=== PATIENT | female | born 1950 | race Caucasian/White ===

== ENCOUNTER 2016-08-20 03:17 | Inpatient (IN) | payer OTHER ==
[~2016-08-20] VITALS: Ht 154.9 cm; Wt 122.6 kg
[2016-08-20] VITALS (93 sets, daily range): BP systolic 62–142; BP diastolic 35–85; PULSE 77–103; TEMP 36.3–37.8; O2SAT 84–100; Ht 154.9 cm; Wt 122.6 kg
[~2016-08-20 03:17] MED LIST: ALBINS NEB; ALBU1AER9 INH; AMT25 PO; ATV/1 PO; B-CO-34 PO; CARV3.122 PO; CHOL1000 PO; DOXY-300 PO; FRRS300 PO; FURO40TA3 PO; HYDCR1CL TOP; INSU70IN2 SC; LCTL45 PO; LCTXP PO; LDDP5 EXT; METF1000 PO; NITR0.4S UT; OXGN; OXYC1TAB3 PO; OXYC20TA50 PO; PANT40TA PO; POLY335019 PO; POTA-74 PO; PSYL55.43 PO; SPR25 PO
[2016-08-20] MEDS ORDERED: SPIR50TA2 PO (03:59)
[2016-08-20] MEDS ORDERED: ALBU18002 INH (04:02)
[2016-08-20] MEDS ORDERED: OXYC20TA50 PO (04:04)
[2016-08-20] MEDS ORDERED: OXYC1TAB3 PO (04:05)
[2016-08-20 04:07] LABS: ALT/SGPT 18 U/L (12-78); AST/SGOT 32 U/L (15-37); BLOOD UREA NITROGEN 6 mg/dl (7-18); BUN/CREATININE RATIO 7.9 (10-20); CALCIUM 7.7 mg/dl (8.5-10.1); CARBON DIOXIDE 25 mmol/L (21-32); CHLORIDE 91 mmol/L (98-107); CREATININE 0.76 mg/dl (0.60-1.20); GLUCOSE 186 mg/dl (70-99); HEMATOCRIT 15.3 % (37-47); MEAN CELL VOLUME 71.2 fL (80-100); MEAN CORPUSCULAR HGB CONC 28.1 g/dl (32-36); PLATELET COUNT 272 K/uL (130-400); POTASSIUM 3.7 mmol/L (3.5-5.1); RED BLOOD COUNT 2.15 M/uL (4.2-5.4); SODIUM 126 mmol/L (136-145); WHITE BLOOD COUNT 7.28 K/uL (4.8-10.8)
[2016-08-20] MEDS ORDERED: PANT40TA PO (04:07)
[2016-08-20] MEDS ORDERED: LACT1GRA PO (04:09)
[2016-08-20] MEDS ORDERED: AMT50 PO (04:10)
[2016-08-20 04:12] LABS: ALB/GLOB RATIO 0.8 (0.9-2); ALKALINE PHOSPHATASE 96 U/L (45-117); C-REACTIVE PROTEIN 0.92 mg/dl (0-0.29)
[2016-08-20 04:13] LABS: BASO ABS # 0.07 K/uL (0-0.2); COMPLETE YES; EOS % 3.3 %; HYPOCHROMIA PRESENT; IG% 1.6 %; LYMPH ABS # 1.38 K/uL (1.2-3.4); MONO % 18.1 %; POLYCHROMASIA 1+
[2016-08-20] MEDS ORDERED: MULTTAB58 PO (04:17)
--- NOTE | 2016-08-20 04:28 | EMERGENCY ROOM VISIT NOTE ---
ED Visit Note First contact with patient: 03:27 I saw this patient in conjunction with Shailesh Ocampo PA-C. I agree with his decision making and treatment plan.
[2016-08-20] MEDS ORDERED: MoRPHine SULFATE 4 MG/ML 1 ML CARP\\VIAL IV ONE (04:30)
[2016-08-20] MEDS ORDERED: PANTOprazole INJ 80 MG in DEXTROSE 5% 100ML IV STA (04:30)
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
[2016-08-20] MEDS ORDERED: ALUMINUM/MAGNESIUM/SIMETH (MAALOX MAX) 30 ML UDC PO PRN (04:45)
[2016-08-20] MEDS ORDERED: ALBUTEROL HFA 8 GM INHALER INH PRN (04:45)
[2016-08-20] MEDS ORDERED: GLUCAGON FOR INJ 1 MG VIAL SQ PRN (04:45)
[2016-08-20] MEDS ORDERED: ACETAMINOPHEN 325 MG TAB PO PRN (04:45)
[2016-08-20] MEDS ORDERED: PANTOprazole INJ 40 MG in DEXTROSE 5% 100ML IV SCH (04:45)
[2016-08-20] MEDS ORDERED: DEXTROSE 50% 50 ML SYR IV PRN (04:45)
[2016-08-20] MEDS ORDERED: NITROGLYCERIN 0.4 MG SL PER TAB CHARGE UT PRN (04:45)
[2016-08-20] MEDS ORDERED: GLUCOSE 10 TABS/TUBE PO PRN (04:45)
[2016-08-20] MEDS ORDERED: MAGNESIUM HYDROXIDE SUSP 30 ML UDC PO PRN (04:45)
[2016-08-20] MEDS ORDERED: LORAZEPAM 1 MG TAB PO PRN (04:45)
[2016-08-20] MEDS ORDERED: GLUCOSE 40% GEL 15 GM TUBE PO PRN (04:45)
[2016-08-20 04:59] LABS: INR 1.2 (0.9-1.1); PROTHROMBIN TIME (PATIENT) 13.1 SECONDS (9.0-12.0)
--- NOTE | 2016-08-20 06:36 | DIAGNOSTIC IMAGING REPORT ---
CHEST ONE VIEW PORTABLE CLINICAL HISTORY: SOB dyspnea COMPARISON STUDY: 06/18/2016 FINDINGS: Components of congestive failure similar to perhaps minimally increased in prominence. Heart is moderately enlarged. IMPRESSION: Congestive heart failure stable to slightly increased in prominence radiographically Electronically signed by: Bj Marcial M.D. 08/20/2016 6:34 AM Dictated Date/Time: 08/20/2016 6:28 AM
[2016-08-20] MEDS: INSULIN HUMAN REGULAR SC SCH ×4 (06:45→20:57)
[2016-08-20] MEDS: CARVEDILOL 3.125 MG TAB PO SCH ×2 (07:15→18:44)
[2016-08-20] MEDS: LACTOBACILLUS ACIDOPHILUS 1 GM PACK PO SCH ×3 (07:55→16:30)
[2016-08-20] MEDS: MULTIVITAMIN TAB PO SCH (07:56)
[2016-08-20] MEDS: FERROUS SULFATE 325 MG TAB PO SCH (07:56)
--- NOTE | 2016-08-20 08:20 | Gastrointestinal Consultation ---
Gastrointestinal Consultation Date of Consultation: Aug 20, 2016 Attending Physician: Dr. Shaw Consulting Physician: Dr. Quinn Reason for Consultation: Anemia History of Present Illness Patient is a 66 year old female patient of Dr. Decker with a hx of COPD on home O2, SAUCEDO cirrhosis with hx of GAVE, GI bleeding requiring multiple transfusions. She presented to the ED yesterday for fatigue, SOB, weakness and melena though she is also on a po iron supplement. 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 She most recently underwent EGD with Dr. Luna in [place] in Mar 2016 with APC of GAVE. -She was scheduled to undergo EGD for BARX tx of the GAVE but was unable to go due to transportation issues. In the past few weeks, her stools which are typically black from iron are "darker" but remained formed, one/day. No bright red blood in stools and no nausea, vomiting or abdominal pain is present. On arrival, Hb was found to be 4.3, down from 8.3 on 06/22/16. INR is 1.2( effect of liver disease, not anticoagulated). After 2 units of blood, Hb 6.1, now receiving her 3rd unit. She is seen and examined while she is resting in bed in the ICU. She denies any abdominal pain and currently has a91 % O2 sat with 2 L O2. Past Medical/Surgical History Medical Problems: (1) Bilateral lower leg cellulitis Status: Acute (2) Bilateral lower leg cellulitis Status: Acute (3) Cellulitis Status: Acute (4) Cellulitis of lower leg Status: Acute (5) Cellulitis of right leg Status: Acute (6) Failure of outpatient treatment Status: Acute (7) Lower extremity edema Status: Acute (8) Shortness of breath Status: Acute (9) SOB (shortness of breath) Status: Acute (10) Swelling of left extremity Status: Acute (11) Swelling of right extremity Status: Acute (12) Symptomatic anemia Status: Acute (13) Weakness Status: Acute (14) Weakness generalized Status: Acute Past Medical History: 1. COPD 2. Obesity 3. SAUCEDO cirrhosis with GAVE 4. HTN 5. Portal HTN Past Surgical History: 1. Hysterectomy 2. Tonsillectomy Family History Cancer FATHER Diabetes mellitus FATHER Heart disease FATHER Pancreatic cancer GRANDMOTHER Social History Smoking Status: Former Smoker Alcohol Use: none Drug Use: none Marital Status: Housing Status: lives alone Occupation Status: retired Allergies Coded Allergies: Cephalexin (Verified Allergy, Intermediate, HIVES, 08/20/16) Iodinated Diagnostic Agents (Verified Allergy, Intermediate, RASH, 08/20/16 ) Penicillins (Verified Allergy, Intermediate, HIVES, 08/20/16) Sulfa Antibiotics (Verified Allergy, Unknown, UNKNOWN, 08/20/16) Current Medications Home Meds and Scripts Medications Dose Route/Sig Max Daily Dose Days Date Category Dose Instructions Multivitamin (Multiple Vitamin) 1 Tab Tab 1 Tab PO DAILY 08/20/16 Reported Elavil (Amitriptyline HCl) 50 Mg Tab 50 Mg PO HS 08/20/16 Reported Lactinex Granules (Lactobacillus Acidophilus) 1 Gm Pkt 1 Gm PO TIDM 08/20/16 Reported Protonix (Pantoprazole Sodium) 40 Mg Tab 40 Mg PO DAILY 08/20/16 Reported Roxicodone Ir (Oxycodone HCl) 5 Mg Tab 5 Mg PO Q6H PRN 08/20/16 Reported Oxycontin (Oxycodone Hcl) 20 Mg Tab 20 Mg PO Q12 PRN 08/20/16 Reported Proair Respiclick (Albuterol Sulfate) 108 Mcg/Act Aer 2 Puffs INH QID PRN 08/20/16 Reported Aldactone (Spironolactone) 50 Mg Tab 50 Mg PO DAILY 08/20/16 Reported Doxycycline (Doxycycline (Monohydrate)) 100 Mg Cap 100 Mg PO BID 5 06/22/16 Rx Oxygen Gas 2 Liters NA CONTINUOUS 06/18/16 Reported Ferrous Sulfate 325 Mg Tab 325 Mg PO DAILY 06/18/16 Reported Lasix (Furosemide) 40 Mg Tab 40 Mg PO DAILY 06/18/16 Reported Novolin 70/30 (Insulin Human Isoph/Insulin Regular) Susp 50 Units SC QAM 06/18/16 Reported Novolin 70/30 (Insulin Human Isoph/Insulin Regular) Susp 52 Units SC QPM 06/18/16 Reported Ativan (Lorazepam) 1 Mg Tab 1 Mg PO Q12 HOURS 06/18/16 Reported Lidocaine 1 Patch Tdsy 1 Patch EXT DAILY 06/18/16 Reported Hydrocortisone 1% (Hydrocortisone) 90 Appln/30 Gm Cr 1 Appln TOP BID PRN 12/31/15 Reported apply to bilateral legs Coreg (Carvedilol) 3.125 Mg Tab 3.125 Mg PO BIDM 10/16/15 Reported Glucophage (Metformin Hcl) 1,000 Mg Tab 1,000 Mg PO BIDM 09/08/15 Reported Vitamin D3 (Cholecalciferol) 1,000 Unit Tab 1,000 Units PO DAILY 08/12/15 Reported Nitrostat (Nitroglycerin) 0.4 Mg Sub 0.4 Mg UT UD PRN 10/29/[address] ONE TABLET UNDER THE TONGUE EVERY 5 MINUTES FOR UP TO 3 DOSES IF NEEDED FOR CHEST PAIN. Albuterol Sulfate (Albuterol Sulf) 2.5 Mg/3 Ml Nebu 1 Vial NEB QID PRN 10/29/14 Reported Potassium Chloride Er (Potassium Chloride) 10 Meq Tab 20 Meq PO TIDM 10/29/14 Reported Review of Systems Constitutional: No chills, No fever, No sweats, No weakness, No weight loss Eyes: No eye pain, No redness ENT: No pain on swallowing, No sore throat, No trouble swallowing Respiratory: No cough, No dyspnea on exertion, No shortness of breath, No wheezing Cardiac: No chest pain, No edema, No palpitations Abdomen: + GI bleeding, + see HPI, No constipation, No diarrhea, No nausea, No pain, No vomiting Neuro: No balance problems, No memory loss, No numbness/tingling, No vertigo, No weakness Psych: No anxiety, No depression symptoms, No insomnia Heme: No abnormal bleeding/bruising, No night sweats Endo: No excessive thirst, No excessive urination Skin: No itch, No jaundice, No new/changing skin lesions, No rash Physical Exam Date Time Temp Pulse Resp B/P Pulse Ox O2 Delivery O2 Flow Rate FiO2 08/20/16 06:30 84 16 107/49 100 2.0 08/20/16 06:15 36.5 86 22 101/47 98 Nasal Cannula 1.0 08/20/16 06:15 84 18 101/47 100 2.0 08/20/16 06:05 36.3 87 22 108/42 91 Nasal Cannula 2.0 08/20/16 06:00 86 20 108/42 100 Nasal Cannula 2.0 08/20/16 05:28 36.7 90 26 106/61 100 Nasal Cannula 2.0 08/20/16 04:35 93 20 120/61 100 Nasal Cannula 2.0 08/20/16 03:42 94 08/20/16 03:28 37.1 99 20 120/56 100 Nasal Cannula 2.0 08/20/16 03:28 100 Nasal Cannula 2.0 08/20/16 03:28 100 Nasal Cannula 2.0 General Appearance: no apparent distress, + obese Neck: no adenopathy, no JVD Respiratory/Chest: normal breath sounds, + decreased breath sounds (in the bases) Cardiovascular: regular rate, rhythm, no JVD, no murmur Abdomen: non tender, soft Extremities: + swelling (chronic thickened skin from chronic lower leg edema) Neurologic/Psych: alert, normal mood/affect, oriented x 3 Skin: normal color, no jaundice, no rash Laboratory Results Last 24 Hours Test 08/20/16 02:24 08/20/16 04:00 08/20/16 05:51 08/20/16 06:00 White Blood Count 7.28 K/uL Red Blood Count 2.15 M/uL Hemoglobin 4.3 g/dL Hematocrit 15.3 % Mean Corpuscular Volume 71.2 fL Mean Corpuscular Hemoglobin 20.0 pg Mean Corpuscular Hemoglobin Concent 28.1 g/dl Platelet Count 272 K/uL Neutrophils (%) (Auto) 57.0 % Lymphocytes (%) (Auto) 19.0 % Monocytes (%) (Auto) 18.1 % Eosinophils (%) (Auto) 3.3 % Basophils (%) (Auto) 1.0 % Neutrophils # (Auto) 4.15 K/uL Lymphocytes # (Auto) 1.38 K/uL Monocytes # (Auto) 1.32 K/uL Eosinophils # (Auto) 0.24 K/uL Basophils # (Auto) 0.07 K/uL Immature Granulocyte % (Auto) 1.6 % Immature Granulocyte # (Auto) 0.12 K/uL Polychromasia 1+ Hypochromasia PRESENT Erythrocyte Sedimentation Rate 11 mm/hr Sodium Level 126 mmol/L Potassium Level 3.7 mmol/L Chloride Level 91 mmol/L Carbon Dioxide Level 25 mmol/L Anion Gap 10.0 mmol/L Blood Urea Nitrogen 6 mg/dl Creatinine 0.76 mg/dl Est Creatinine Clear Calc Drug Dose 91.6 ml/min Estimated GFR () 94.1 Estimated GFR (Non- 81.2 BUN/Creatinine Ratio 7.9 Random Glucose 186 mg/dl Calcium Level 7.7 mg/dl Total Bilirubin 0.7 mg/dl Aspartate Amino Transf (AST/SGOT) 32 U/L Alanine Aminotransferase (ALT/SGPT) 18 U/L Alkaline Phosphatase 96 U/L Troponin I < 0.015 ng/ml C-Reactive Protein 0.92 mg/dl Pro-B-Type Natriuretic Peptide 552 pg/ml Total Protein 5.8 gm/dl Albumin 2.5 gm/dl Globulin 3.3 gm/dl Albumin/Globulin Ratio 0.8 Prothrombin Time 13.1 SECONDS Prothromb Time International Ratio 1.2 Bedside Glucose 122 mg/dl Test 08/20/16 08:00 Impression Patient is a 66 year old female with melena, anemia, likely 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 Plan Plan: 1. Agree with Protonix drip. 2. Timing of next EGD to be determined by dialogue between Dr. Quinn, Dr. Soriano and Dr. Eboni Cisse. There is some concern from anesthesia regarding hyponatremia and need to correct this and resuscitate with blood prior to sedation. ttg addendum: I interviewed and examined pt, reviewed chart and labs. Pt with cirrhosis, GAVE, recurrent GIB thought to be related to GAVE now admit with progressive MALDONADO< persistent passage of dark stool. On admission, she was normotensive, with hgb 4 (last 8 in June), normal BUN, Na 126. She has received 2 U PRBC with rise in Hgb from 4 to 6. A/P: GIB - I presume that she is bleeding again from GAVE. DDX includes LGIB - she has never had a cscopy with adequate prep. At present, she is still receiving blood, and she does not appear be acutely bleeding - would prefer to defer scope until pt has completed transfusion. Will plan EGD and cscopy next week; may be done as outpt. No need for PPI gtt - this is likely a chronic or subacute bleed; ok for BID PPI. I don't think that she needs abx prophylaxis for this bleed, given its likely chronicity. Cirrhosis - o.w appears compensated, without evidence of vol overload or enceph. May resume out pt dose of diuretics.
[2016-08-20 08:52] LABS: URINE APPEARANCE CLEAR (CLEAR); URINE BILIRUBIN NEG (NEG); URINE COLOR YELLOW; URINE EPITHELIAL CELL AUTO >30 /lpf (0-5); URINE NITRITE NEG (NEG); URINE PH 5.5 (4.5-7.5); UROBILINOGEN NEG (NEG); ZZUR CULT IF INDIC CLEAN CATCH NO
[2016-08-20 08:54] LABS: MANUAL MICROSCOPIC REQUIRED? NO; REVIEW REQ? NO
[2016-08-20] MEDS: SPIRONOLACTONE 100 MG TAB PO SCH (09:00)
[2016-08-20 09:45] LABS: HEMATOCRIT 17.3 % (37-47)
[2016-08-20] MEDS: PANTOprazole INJ 40 MG in DEXTROSE 5% 100ML IV SCH ×3 (10:19→19:35)
[2016-08-20] MEDS: LIDODERM (LIDOCAINE) PATCH 5% TD SCH (10:21)
[2016-08-20] MEDS: OXYCODONE HCL 20 MG TABCR (OXYCONTIN) PO PRN ×2 (11:47→23:59)
--- NOTE | 2016-08-20 11:54 | Progress Note ---
Internal Med Progress Note Date of Service: Aug 20, 2016. Provider Documentation: SUBJECTIVE: Patient is seen & examined at bedside. She is awake but feels very weak and tired. Mild intermittent SOB at rest. Not a great historian. PRBC # 2 is being transfused now. OBJECTIVE: Vital Signs-as noted below Examination: General Appearance: Awake, In no apparent distress, Feels very tired and weak ) Eyes: sclerae normal ENT: Eras, Nose & Throat are normal looking. Neck: thyroid normal, no carotid bruits, trachea midline Respiratory/Chest: B/L Clear to auscultation Cardiovascular: regular rate, rhythm, Normal S1,S2. Abdomen/GI: normal bowel sounds, non tender, soft Extremities/Musculoskeletal: normal inspection, no pedal edema Neurologic/Psych: no motor/sensory deficits,very tired , lethargic Lab data as noted below. ASSESSMENT & PLAN: Severe Symptomatic Anemia due to GI Bleeding: Patient presents with melena assoc with generalized weakness, SOB and lightheadedness; Has known h/o chronic anemia /GI bleed due to GAVE -Not on Aspirin or NSAID's -Hgb~4 on presentation (baseline 8.5-9.0); Hb has gone up from 4.3 --> 4.9 after 2 units of PRBC. -Monitor H&H q 4 h closely -Continue Protonix drip -Discussed with GI DUNG Rosas and raised concern regarding acute intervention as she was suggesting doing EGD on Tuesday. Raised my concern with her regarding critical illness of this patient. 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 She missed the appointment -car was not working ,could not get a ride Recent UTI: urine culture on 08/12/16 grew Proteus Mirabilis which is resistant to Cipro /Levaquin -Continue Rocephin (Day # 1).ordered for Rocephin -UA and urine culture ordered Diabetes Type II: Holding Novolin and metformin -Monitor BS closely and cover as per sliding scale. Chronic Systolic CHF: Seems clinically stable and euvolemic. Last echo from 01/29/15-LVEF 60-65% with grade 1 diastolic dysfunction and moderate septal L ventricular hypertrophy -Continue Carvedilol -Will give Lasix in between PRBC transfusions to avoid any fluid overload -Monitoring volume status Chronic Respiratory Failure: Due to COPD and is on chronic oxygen 2.5 L O2 at night and PRN during the day -No evidence of acute exacerbation -Continue home inhalers/ nebs Hypotension: Episodes of hypotension -possible due to severe anemia -Continue Carvedilol with holding parameters -Holding Lasix /Aldactone for now and will use as needed -Monitor BP closely History SAUCEDO/Portal Hypertension/Hepatic Lesions: EGD 03/29/16 did not show varices -Chronic Hyponatremia due to above -GI following her as outpatient History GERD: Continue Protonix drip DVT Prophylaxis: SCDs only in setting of GI bleed Code Status: FULL CODE Disposition: Pending. Vital Signs: Date Time Temp Pulse Resp B/P Pulse Ox O2 Delivery O2 Flow Rate FiO2 08/20/16 10:53 36.6 90 28 121/58 92 08/20/16 10:30 92 23 123/69 08/20/16 09:36 87 23 96/59 91 2.0 08/20/16 08:35 81 19 103/61 92 2.0 08/20/16 07:45 Nasal Cannula 08/20/16 06:30 84 16 107/49 100 2.0 08/20/16 06:15 36.5 86 22 101/47 98 Nasal Cannula 1.0 08/20/16 06:15 84 18 101/47 100 2.0 08/20/16 06:05 36.3 87 22 108/42 91 Nasal Cannula 2.0 08/20/16 06:00 86 20 108/42 100 Nasal Cannula 2.0 08/20/16 05:28 36.7 90 26 106/61 100 Nasal Cannula 2.0 08/20/16 04:35 93 20 120/61 100 Nasal Cannula 2.0 08/20/16 03:42 94 08/20/16 03:28 37.1 99 20 120/56 100 Nasal Cannula 2.0 08/20/16 03:28 100 Nasal Cannula 2.0 08/20/16 03:28 100 Nasal Cannula 2.0 Lab Results: Results Past 24 Hours Test 08/20/16 02:24 08/20/16 04:00 08/20/16 05:30 08/20/16 05:51 Range/Units White Blood Count 7.28 4.8-10.8 K/uL Red Blood Count 2.15 4.2-5.4 M/uL Hemoglobin 4.3 12.0-16.0 g/dL Hematocrit 15.3 37-47 % Mean Corpuscular Volume 71.2 80-100 fL Mean Corpuscular Hemoglobin 20.0 25-34 pg Mean Corpuscular Hemoglobin Concent 28.1 32-36 g/dl Platelet Count 272 130-400 K/uL Neutrophils (%) (Auto) 57.0 % Lymphocytes (%) (Auto) 19.0 % Monocytes (%) (Auto) 18.1 % Eosinophils (%) (Auto) 3.3 % Basophils (%) (Auto) 1.0 % Neutrophils # (Auto) 4.15 1.4-6.5 K/uL Lymphocytes # (Auto) 1.38 1.2-3.4 K/uL Monocytes # (Auto) 1.32 0.11-0.59 K/uL Eosinophils # (Auto) 0.24 0-0.5 K/uL Basophils # (Auto) 0.07 0-0.2 K/uL Immature Granulocyte % (Auto) 1.6 % Immature Granulocyte # (Auto) 0.12 0.00-0.02 K/uL Polychromasia 1+ Hypochromasia PRESENT Erythrocyte Sedimentation Rate 11 0-21 mm/hr Sodium Level 126 136-145 mmol/L Potassium Level 3.7 3.5-5.1 mmol/L Chloride Level 91 98-107 mmol/L Carbon Dioxide Level 25 21-32 mmol/L Anion Gap 10.0 3-11 mmol/L Blood Urea Nitrogen 6 7-18 mg/dl Creatinine 0.76 0.60-1.20 mg/dl Est Creatinine Clear Calc Drug Dose 91.6 ml/min Estimated GFR () 94.1 Estimated GFR (Non- 81.2 BUN/Creatinine Ratio 7.9 10-20 Random Glucose 186 70-99 mg/dl Calcium Level 7.7 8.5-10.1 mg/dl Total Bilirubin 0.7 0.2-1 mg/dl Aspartate Amino Transf (AST/SGOT) 32 15-37 U/L Alanine Aminotransferase (ALT/SGPT) 18 12-78 U/L Alkaline Phosphatase 96 45-117 U/L Troponin I < 0.015 0-0.045 ng/ml C-Reactive Protein 0.92 0-0.29 mg/dl Pro-B-Type Natriuretic Peptide 552 0-900 pg/ml Total Protein 5.8 6.4-8.2 gm/dl Albumin 2.5 3.4-5.0 gm/dl Globulin 3.3 2.5-4.0 gm/dl Albumin/Globulin Ratio 0.8 0.9-2 Prothrombin Time 13.1 9.0-12.0 SECONDS Prothromb Time International Ratio 1.2 0.9-1.1 Urine Color YELLOW Urine Appearance CLEAR CLEAR Urine pH 5.5 4.5-7.5 Urine Specific Aspen 1.000 1.000-1.030 Urine Protein NEG NEG Urine Glucose (UA) NEG NEG Urine Ketones NEG NEG Urine Occult Blood 2+ NEG Urine Nitrite NEG NEG Urine Bilirubin NEG NEG Urine Urobilinogen NEG NEG Urine Leukocyte Esterase NEG NEG Urine WBC (Auto) 1-5 0-5 /hpf Urine RBC (Auto) 0-4 0-4 /hpf Urine Hyaline Casts (Auto) 0 0-5 /lpf Urine Epithelial Cells (Auto) >30 0-5 /lpf Urine Bacteria (Auto) NEG NEG Bedside Glucose 122 70-90 mg/dl Test 08/20/16 08:42 08/20/16 11:54 08/20/16 12:00 Range/Units Hemoglobin 4.9 12.0-16.0 g/dL Hematocrit 17.3 37-47 %
[2016-08-20 12:36] LABS: BUN/CREATININE RATIO 8.6 (10-20); CALCIUM 7.8 mg/dl (8.5-10.1); CREATININE 0.63 mg/dl (0.60-1.20); POTASSIUM 3.8 mmol/L (3.5-5.1)
[2016-08-20 12:46] LABS: HEMATOCRIT 20.5 % (37-47)
[2016-08-20] MEDS ORDERED: FUROSEMIDE INJ 10 MG in SYRINGE 0 ML IV ONE (14:00)
[2016-08-20] MEDS: CEFTRIAXONE SOD INJ 1 GM in DEXTROSE 5% ADD-VANTAGE 50ML 50 ML IV SCH (14:23)
[2016-08-20 18:30] LABS: HEMATOCRIT 26.2 % (37-47)
[2016-08-20] MEDS: OXYCODONE HCL IR 5 MG TAB (IMMEDIATE RELEASE) PO PRN ×2 (18:42→23:59)
[2016-08-20] MEDS: AMITRIPTYLINE HCL 50 MG TAB PO SCH (20:57)
[2016-08-20] MEDS: LORAZEPAM 0.5 MG TAB PO PRN (23:58)
[2016-08-21] VITALS (18 sets, daily range): BP systolic 72–115; BP diastolic 41–64; PULSE 74–88; TEMP 36.6–37.2; O2SAT 93–100
[2016-08-21] MEDS: PANTOprazole INJ 40 MG in DEXTROSE 5% 100ML IV SCH ×2 (00:28→10:15)
[2016-08-21 06:11] LABS: HEMATOCRIT 23.5 % (37-47); MEAN CELL VOLUME 76.8 fL (80-100); MEAN CORPUSCULAR HEMOGLOBIN 24.2 pg (25-34); MEAN CORPUSCULAR HGB CONC 31.5 g/dl (32-36); MEAN PLATELET VOLUME 8.8 fL (7.4-10.4); PLATELET COUNT 212 K/uL (130-400); RED BLOOD COUNT 3.06 M/uL (4.2-5.4); WHITE BLOOD COUNT 6.25 K/uL (4.8-10.8)
[2016-08-21 06:28] LABS: BUN/CREATININE RATIO 7.7 (10-20); CALCIUM 7.6 mg/dl (8.5-10.1); CREATININE 0.71 mg/dl (0.60-1.20); MAGNESIUM 1.8 mg/dl (1.8-2.4); POTASSIUM 4.2 mmol/L (3.5-5.1)
[2016-08-21 06:42] LABS: ESTIMATED AVERAGE GLUCOSE 114 mg/dl; HA1C FLAG Normal (Normal)
[2016-08-21] MEDS: INSULIN HUMAN REGULAR SC SCH ×4 (08:38→20:42)
[2016-08-21] MEDS: MULTIVITAMIN TAB PO SCH (08:39)
[2016-08-21] MEDS: LACTOBACILLUS ACIDOPHILUS 1 GM PACK PO SCH ×3 (08:40→16:51)
[2016-08-21] MEDS: FERROUS SULFATE 325 MG TAB PO SCH (08:40)
[2016-08-21] MEDS: CARVEDILOL 3.125 MG TAB PO SCH ×2 (08:41→16:52)
[2016-08-21] MEDS: SPIRONOLACTONE 100 MG TAB PO SCH (08:41)
[2016-08-21] MEDS: OXYCODONE HCL IR 5 MG TAB (IMMEDIATE RELEASE) PO PRN ×3 (08:48→20:53)
[2016-08-21] MEDS: LIDODERM (LIDOCAINE) PATCH 5% TD SCH (08:48)
[2016-08-21] MEDS: OXYCODONE HCL 20 MG TABCR (OXYCONTIN) PO PRN (12:20)
--- NOTE | 2016-08-21 12:28 | Progress Note ---
Internal Med Progress Note Date of Service: Aug 21, 2016. Provider Documentation: SUBJECTIVE: Patient is seen & examined at bedside. She is awake,sitting in chair but feels very weak and tired. Denies any nausea/vomiting or abdominal pain. OBJECTIVE: Vital Signs-as noted below Examination: General Appearance: Awake, In no apparent distress Eyes: sclerae normal ENT: Eras, Nose & Throat are normal looking. Neck: thyroid normal, no carotid bruits, trachea midline Respiratory/Chest: B/L Clear to auscultation Cardiovascular: regular rate, rhythm, Normal S1,S2. Abdomen/GI: normal bowel sounds, non tender, soft Extremities/Musculoskeletal: normal inspection, no pedal edema Neurologic/Psych: no motor/sensory deficits,very tired , lethargic Lab data as noted below. ASSESSMENT & PLAN: Severe Symptomatic Anemia due to GI Bleeding: Patient presents with melena assoc with generalized weakness, SOB and lightheadedness; Has known h/o chronic anemia /GI bleed due to GAVE -Not on Aspirin or NSAID's -Hgb~4 on presentation (baseline 8.5-9.0); Hb has gone up from 4.3 --> 4.9-- > 6.1 --> 8.0 --> 7.4 after 4 units of PRBC. -Monitor H&H closely -Continue I/V Protonix -Reviewed GI consult. No acute intervention planned so far. -Colonoscopy 12/2015 was normal -Advanced from Clear liquid to Full liquid diet. 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 She missed the appointment -car was not working ,could not get a ride Recent UTI: urine culture on 08/12/16 grew Proteus Mirabilis which is resistant to Cipro /Levaquin -Continue Rocephin (Day # 2).ordered for Rocephin -UA and urine culture ordered Diabetes Type II: Holding Novolin and metformin -Monitor BS closely and cover as per sliding scale. Chronic Systolic CHF: Seems clinically stable and euvolemic. Last echo from 01/29/15-LVEF 60-65% with grade 1 diastolic dysfunction and moderate septal L ventricular hypertrophy -Continue Carvedilol -Will give Lasix in between PRBC transfusions to avoid any fluid overload -Monitoring volume status Chronic Respiratory Failure: Due to COPD and is on chronic oxygen 2.5 L O2 at night and PRN during the day -No evidence of acute exacerbation -Continue home inhalers/ nebs Hypotension: Episodes of hypotension -possible due to severe anemia -Continue Carvedilol with holding parameters -Holding Lasix /Aldactone for now and will use as needed -Monitor BP closely History SAUCEDO/Portal Hypertension/Hepatic Lesions: EGD 03/29/16 did not show varices -Chronic Hyponatremia due to above -GI following her as outpatient History GERD: Continue Protonix drip DVT Prophylaxis: SCDs only in setting of GI bleed Code Status: FULL CODE Disposition: Pending. Vital Signs: Date Time Temp Pulse Resp B/P Pulse Ox O2 Delivery O2 Flow Rate FiO2 08/21/16 08:00 100 Nasal Cannula 2.0 08/21/16 05:59 85 18 99/42 100 08/21/16 04:06 Nasal Cannula 2.0 08/21/16 03:58 36.8 84 16 100/49 100 08/21/16 01:58 84 19 112/57 93 08/21/16 00:33 Nasal Cannula 2.0 08/21/16 00:28 84 21 101/55 95 08/21/16 00:13 85 22 115/45 99 08/21/16 00:06 36.8 88 28 98/57 100 08/20/16 23:29 86 22 /82 97 08/20/16 23:15 86 31 99/43 96 08/20/16 22:59 90 20 137/56 92 08/20/16 21:29 83 22 115/63 98 08/20/16 21:15 87 26 133/54 100 08/20/16 20:58 79 19 118/79 100 08/20/16 20:44 86 19 93/35 97 08/20/16 20:28 37.8 90 20 103/56 97 08/20/16 20:14 79 20 115/50 100 08/20/16 20:12 Nasal Cannula 2.0 08/20/16 19:59 79 27 101/45 92 08/20/16 19:57 81 18 101/47 100 08/20/16 19:44 85 19 62/47 93 08/20/16 19:28 79 18 109/62 95 08/20/16 19:14 82 19 106/74 95 08/20/16 19:00 86 19 98 08/20/16 17:30 87 25 100 08/20/16 17:28 36.5 86 22 84/68 100 Nasal Cannula 2.0 08/20/16 17:15 92 23 100 08/20/16 17:14 93 25 105/62 100 08/20/16 17:00 36.5 100 20 100 Nasal Cannula 2.0 08/20/16 16:59 100 25 89/70 100 08/20/16 16:45 92 22 100 08/20/16 16:43 92 23 130/72 100 08/20/16 16:30 36.6 93 20 100 Nasal Cannula 2.0 08/20/16 16:28 92 29 119/68 100 08/20/16 16:15 36.6 89 18 100 Nasal Cannula 2.0 08/20/16 15:58 89 20 126/77 100 08/20/16 15:56 Nasal Cannula 2.0 08/20/16 15:45 89 23 100 08/20/16 15:43 91 34 116/66 100 08/20/16 15:30 98 17 100 08/20/16 15:29 96 17 132/80 100 08/20/16 15:15 36.5 91 20 119/69 100 2.0 08/20/16 15:15 91 21 100 08/20/16 15:13 93 32 119/69 100 08/20/16 15:00 36.6 91 18 126/59 99 2.0 08/20/16 15:00 98 21 98 08/20/16 14:58 95 15 126/59 100 08/20/16 14:45 92 24 100 08/20/16 14:30 93 27 100 08/20/16 14:28 93 25 113/69 100 08/20/16 14:15 100 18 08/20/16 14:13 97 18 127/70 08/20/16 14:00 96 27 98 08/20/16 13:58 94 26 121/53 96 08/20/16 13:45 94 23 98 08/20/16 13:43 94 26 116/69 98 08/20/16 13:30 94 27 142/57 98 08/20/16 13:15 36.5 95 18 119/66 98 Nasal Cannula 2.0 08/20/16 12:45 36.6 94 17 99 08/20/16 12:30 91 26 98 08/20/16 12:29 36.5 91 20 93/67 100 2.0 08/20/16 12:28 36.5 92 25 / 100 Lab Results: Results Past 24 Hours Test 08/20/16 16:24 08/20/16 18:23 08/20/16 20:56 08/21/16 05:45 Range/Units Bedside Glucose 99 122 70-90 mg/dl Hemoglobin 8.0 7.4 12.0-16.0 g/dL Hematocrit 26.2 23.5 37-47 % White Blood Count 6.25 4.8-10.8 K/uL Red Blood Count 3.06 4.2-5.4 M/uL Mean Corpuscular Volume 76.8 80-100 fL Mean Corpuscular Hemoglobin 24.2 25-34 pg Mean Corpuscular Hemoglobin Concent 31.5 32-36 g/dl RDW Standard Deviation 50.9 36.4-46.3 fL RDW Coefficient of Variation 18.0 11.5-14.5 % Platelet Count 212 130-400 K/uL Mean Platelet Volume 8.8 7.4-10.4 fL Sodium Level 133 136-145 mmol/L Potassium Level 4.2 3.5-5.1 mmol/L Chloride Level 97 98-107 mmol/L Carbon Dioxide Level 27 21-32 mmol/L Anion Gap 9.0 3-11 mmol/L Blood Urea Nitrogen 6 7-18 mg/dl Creatinine 0.71 0.60-1.20 mg/dl Est Creatinine Clear Calc Drug Dose 95.6 ml/min Estimated GFR () 102.2 Estimated GFR (Non- 88.1 BUN/Creatinine Ratio 7.7 10-20 Random Glucose 138 70-99 mg/dl Estimated Average Glucose 114 mg/dl Hemoglobin A1c 5.6 4.5-5.6 % Osmolality 272 280-300 mOsm/kg Calcium Level 7.6 8.5-10.1 mg/dl Magnesium Level 1.8 1.8-2.4 mg/dl Test 08/21/16 11:13 Range/Units Bedside Glucose 159 70-90 mg/dl
[2016-08-21] MEDS ORDERED: IRON SUCROSE INJ 100 MG in SODIUM CHLORIDE 0.9% 100ML 100 ML IV SCH (13:00)
[2016-08-21] MEDS ORDERED: FUROSEMIDE INJ 10 MG in SYRINGE 0 ML IV ONE (13:00)
[2016-08-21] MEDS: CEFTRIAXONE SOD INJ 1 GM in DEXTROSE 5% ADD-VANTAGE 50ML 50 ML IV SCH (14:03)
[2016-08-21 16:57] LABS: HEMATOCRIT 25.4 % (37-47)
--- NOTE | 2016-08-21 18:06 | DIAGNOSTIC IMAGING REPORT ---
LEFT HIP 2 VIEWS CLINICAL HISTORY: Left hip pain. No history of trauma. FINDINGS: AP and frog-leg views of the left hip are obtained. No prior studies are available for comparison at the time of dictation. The skeletal structures are osteopenic. No fracture is identified in the left hip or the visualized left hemipelvis. Mild arthritic change and joint space narrowing is seen in the left hip. Mild bony overgrowth is noted along the acetabular roof. Pelvic phleboliths are identified. The overlying soft tissues are normal as visualized. IMPRESSION: Osteopenia and arthritic change as above. No acute bony abnormality is identified in the left hip. Electronically signed by: Victor M Jackson M.D. 08/21/2016 6:05 PM Dictated Date/Time: 08/21/2016 6:03 PM
[2016-08-21] MEDS: PANTOprazole INJ 40 MG in SYRINGE 0 ML IV SCH (20:40)
[2016-08-21] MEDS: AMITRIPTYLINE HCL 50 MG TAB PO SCH (20:42)
[2016-08-22] VITALS (7 sets, daily range): BP systolic 91–115; BP diastolic 57–69; PULSE 78–90; TEMP 36.8–37.1; O2SAT 91–99
[2016-08-22] MEDS ORDERED: NURSING DECISION MEDICATION ORDER SCH (00:30)
[2016-08-22] MEDS ORDERED: EUCERIN CR 120 GM JAR EXT PRN (00:45)
[2016-08-22 06:12] LABS: HEMATOCRIT 26.7 % (37-47); MEAN CORPUSCULAR HEMOGLOBIN 24.3 pg (25-34); MEAN CORPUSCULAR HGB CONC 30.7 g/dl (32-36); MEAN PLATELET VOLUME 9.1 fL (7.4-10.4); PLATELET COUNT 222 K/uL (130-400); RED BLOOD COUNT 3.38 M/uL (4.2-5.4); WHITE BLOOD COUNT 8.14 K/uL (4.8-10.8)
[2016-08-22] MEDS: OXYCODONE HCL IR 5 MG TAB (IMMEDIATE RELEASE) PO PRN ×2 (06:41→15:16)
[2016-08-22 06:51] LABS: BUN/CREATININE RATIO 7.3 (10-20); CALCIUM 8.2 mg/dl (8.5-10.1); CREATININE 0.74 mg/dl (0.60-1.20); MAGNESIUM 1.7 mg/dl (1.8-2.4); POTASSIUM 3.9 mmol/L (3.5-5.1)
[2016-08-22] MEDS: SPIRONOLACTONE 100 MG TAB PO SCH (07:23)
[2016-08-22] MEDS: CARVEDILOL 3.125 MG TAB PO SCH ×2 (07:46→17:09)
[2016-08-22] MEDS: LACTOBACILLUS ACIDOPHILUS 1 GM PACK PO SCH ×3 (07:46→17:09)
[2016-08-22] MEDS: PANTOprazole INJ 40 MG in SYRINGE 0 ML IV SCH (07:47)
[2016-08-22] MEDS: MULTIVITAMIN TAB PO SCH (07:48)
[2016-08-22] MEDS: LIDODERM (LIDOCAINE) PATCH 5% TD SCH (07:48)
[2016-08-22] MEDS: INSULIN HUMAN REGULAR SC SCH ×4 (07:53→20:58)
[2016-08-22] MEDS: OXYCODONE HCL 20 MG TABCR (OXYCONTIN) PO PRN ×2 (07:59→23:56)
[2016-08-22] MEDS ORDERED: MAGNESIUM SULFATE 1GM / D5W 1 GM in PREMIXED IN D5W 100 ML IV ONE (09:30)
[2016-08-22] MEDS: CEFTRIAXONE SOD INJ 1 GM in DEXTROSE 5% ADD-VANTAGE 50ML 50 ML IV SCH (13:18)
--- NOTE | 2016-08-22 16:21 | Progress Note ---
Internal Med Progress Note Date of Service: Aug 22, 2016. Provider Documentation: SUBJECTIVE: Patient is seen & examined at bedside. She is awake,sitting in chair but feels very weak and tired. Denies any nausea/vomiting or abdominal pain.Has been c/o pain in the Left hip and told me that she fell down a few days ago. OBJECTIVE: Vital Signs-as noted below Examination: General Appearance: Awake, In no apparent distress Eyes: sclerae normal ENT: Eras, Nose & Throat are normal looking. Neck: thyroid normal, no carotid bruits, trachea midline Respiratory/Chest: B/L Clear to auscultation Cardiovascular: regular rate, rhythm, Normal S1,S2. Abdomen/GI: normal bowel sounds, non tender, soft Extremities/Musculoskeletal: normal inspection, no pedal edema Neurologic/Psych: no motor/sensory deficits,very tired , lethargic Lab data as noted below. 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 -Monitor H&H closely -Continue Protonix -Reviewed GI consult. No acute intervention planned so far. -Colonoscopy 12/2015 was normal -Advanced from Clear liquid to Full liquid diet. 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 She missed the appointment -car was not working ,could not get a ride Recent UTI: urine culture on 08/12/16 grew Proteus Mirabilis which is resistant to Cipro /Levaquin -Continue Rocephin (Day # 3).ordered for Rocephin -UA and urine culture ordered Diabetes Type II: Holding Novolin and metformin -Monitor BS closely and cover as per sliding scale. Left Hip pain: X-Ray is negative for any acute finding. -Already on pain medications. Chronic Systolic CHF: Seems clinically stable and euvolemic. Last echo from 01/29/15-LVEF 60-65% with grade 1 diastolic dysfunction and moderate septal L ventricular hypertrophy -Continue Carvedilol -Will give Lasix in between PRBC transfusions to avoid any fluid overload -Monitoring volume status Chronic Respiratory Failure: Due to COPD and is on chronic oxygen 2.5 L O2 at night and PRN during the day -No evidence of acute exacerbation -Continue home inhalers/ nebs Hypotension: Episodes of hypotension -possible due to severe anemia -Continue Carvedilol with holding parameters -Holding Lasix /Aldactone for now and will use as needed -Monitor BP closely History SAUCEDO/Portal Hypertension/Hepatic Lesions: EGD 03/29/16 did not show varices -Chronic Hyponatremia due to above -GI following her as outpatient History GERD: Continue Protonix drip DVT Prophylaxis: SCDs only in setting of GI bleed Code Status: FULL CODE Disposition: Pending. Vital Signs: Date Time Temp Pulse Resp B/P Pulse Ox O2 Delivery O2 Flow Rate FiO2 08/22/16 15:16 37.0 82 19 101/57 99 Nasal Cannula 2.0 08/22/16 12:00 Nasal Cannula 2.0 08/22/16 10:39 37.1 78 20 91/60 91 Room Air 08/22/16 08:00 Nasal Cannula 2.0 08/22/16 07:08 37.0 90 20 100/60 99 Nasal Cannula 2.0 08/22/16 04:00 93 Room Air 08/22/16 04:00 36.8 85 115/64 93 Room Air 08/22/16 00:00 93 Room Air 08/21/16 22:26 82 20 88/55 94 08/21/16 21:46 37.2 80 20 90/59 99 08/21/16 20:46 37.2 79 85/49 99 2.0 08/21/16 20:00 99 Nasal Cannula 2.0 08/21/16 19:46 37.2 80 20 89/48 100 2.0 08/21/16 19:16 37.2 76 16 90/47 99 08/21/16 18:59 37.0 74 18 72/41 98 2.0 Lab Results: Results Past 24 Hours Test 08/21/16 16:24 08/21/16 16:46 08/21/16 20:06 08/22/16 05:25 Range/Units Bedside Glucose 123 131 70-90 mg/dl Hemoglobin 7.8 8.2 12.0-16.0 g/dL Hematocrit 25.4 26.7 37-47 % White Blood Count 8.14 4.8-10.8 K/uL Red Blood Count 3.38 4.2-5.4 M/uL Mean Corpuscular Volume 79.0 80-100 fL Mean Corpuscular Hemoglobin 24.3 25-34 pg Mean Corpuscular Hemoglobin Concent 30.7 32-36 g/dl RDW Standard Deviation 51.9 36.4-46.3 fL RDW Coefficient of Variation 18.1 11.5-14.5 % Platelet Count 222 130-400 K/uL Mean Platelet Volume 9.1 7.4-10.4 fL Sodium Level 133 136-145 mmol/L Potassium Level 3.9 3.5-5.1 mmol/L Chloride Level 96 98-107 mmol/L Carbon Dioxide Level 28 21-32 mmol/L Anion Gap 9.0 3-11 mmol/L Blood Urea Nitrogen 5 7-18 mg/dl Creatinine 0.74 0.60-1.20 mg/dl Est Creatinine Clear Calc Drug Dose 91.4 ml/min Estimated GFR () 97.2 Estimated GFR (Non- 83.8 BUN/Creatinine Ratio 7.3 10-20 Random Glucose 126 70-99 mg/dl Calcium Level 8.2 8.5-10.1 mg/dl Magnesium Level 1.7 1.8-2.4 mg/dl Test 08/22/16 06:46 08/22/16 10:44 08/22/16 16:01 Range/Units Bedside Glucose 145 200 123 70-90 mg/dl
[2016-08-22] MEDS: ALBUT/IPRATROP 3MG/0.5MG NEB 3 ML VIAL INH PRN (19:30)
[2016-08-22] MEDS: AMITRIPTYLINE HCL 50 MG TAB PO SCH (19:34)
[2016-08-22] MEDS: PANTOprazole SOD 40 MG TAB PO SCH (19:35)
[2016-08-22] MEDS: LORAZEPAM 0.5 MG TAB PO PRN (23:55)
[2016-08-23] VITALS (9 sets, daily range): BP systolic 100–112; BP diastolic 54–73; PULSE 52–87; TEMP 36.3–36.9; O2SAT 92–100
[2016-08-23] MEDS: OXYCODONE HCL IR 5 MG TAB (IMMEDIATE RELEASE) PO PRN ×2 (01:28→15:21)
[2016-08-23 05:39] LABS: HEMATOCRIT 26.7 % (37-47); MEAN CELL VOLUME 79.5 fL (80-100); MEAN CORPUSCULAR HEMOGLOBIN 24.7 pg (25-34); MEAN CORPUSCULAR HGB CONC 31.1 g/dl (32-36); MEAN PLATELET VOLUME 8.6 fL (7.4-10.4); PLATELET COUNT 215 K/uL (130-400); RED BLOOD COUNT 3.36 M/uL (4.2-5.4); WHITE BLOOD COUNT 9.03 K/uL (4.8-10.8)
[2016-08-23 06:11] LABS: CALCIUM 7.8 mg/dl (8.5-10.1); CREATININE 0.79 mg/dl (0.60-1.20); MAGNESIUM 1.9 mg/dl (1.8-2.4); POTASSIUM 4.3 mmol/L (3.5-5.1)
[2016-08-23] MEDS: PANTOprazole SOD 40 MG TAB PO SCH ×2 (08:00→21:02)
[2016-08-23] MEDS: SPIRONOLACTONE 100 MG TAB PO SCH (08:03)
[2016-08-23] MEDS: CARVEDILOL 3.125 MG TAB PO SCH ×2 (08:03→15:22)
[2016-08-23] MEDS: LACTOBACILLUS ACIDOPHILUS 1 GM PACK PO SCH ×3 (08:05→15:22)
[2016-08-23] MEDS: MULTIVITAMIN TAB PO SCH (08:06)
[2016-08-23] MEDS: LIDODERM (LIDOCAINE) PATCH 5% TD SCH (08:07)
[2016-08-23] MEDS: INSULIN HUMAN REGULAR SC SCH ×4 (08:09→21:01)
[2016-08-23] MEDS: OXYCODONE HCL 20 MG TABCR (OXYCONTIN) PO PRN ×2 (08:22→21:10)
[2016-08-23] MEDS: CEFTRIAXONE SOD INJ 1 GM in DEXTROSE 5% ADD-VANTAGE 50ML 50 ML IV SCH (11:48)
--- NOTE | 2016-08-23 16:00 | Progress Note ---
Internal Med Progress Note Date of Service: Aug 23, 2016. Provider Documentation: SUBJECTIVE: Patient is seen & examined at bedside. She is awake,sitting in chair but feels very weak and tired. Denies any nausea/vomiting or abdominal pain.Has been c/o pain in the Left hip and told me that she fell down a few days ago. Has been tolerating oral intake well. No other new change or complaint. OBJECTIVE: Vital Signs-as noted below Examination: General Appearance: Awake, In no apparent distress Eyes: sclerae normal ENT: Eras, Nose & Throat are normal looking. Neck: thyroid normal, no carotid bruits, trachea midline Respiratory/Chest: B/L Clear to auscultation Cardiovascular: regular rate, rhythm, Normal S1,S2. Abdomen/GI: normal bowel sounds, non tender, soft Extremities/Musculoskeletal: normal inspection, no pedal edema Neurologic/Psych: no motor/sensory deficits,very tired , lethargic Lab data as noted below. 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 -Monitor H&H closely -Continue Protonix -Reviewed GI consult. No acute intervention planned so far. -Colonoscopy 12/2015 was normal -Advanced from Clear liquid to Full liquid diet. 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 She missed the appointment -car was not working ,could not get a ride Recent UTI: urine culture on 08/12/16 grew Proteus Mirabilis which is resistant to Cipro /Levaquin -Continue Rocephin (Day # 4). Needs for total 7 days -UA and urine culture ordered Diabetes Type II: Holding Novolin and metformin -Monitor BS closely and cover as per sliding scale. Left Hip pain: X-Ray is negative for any acute finding. -Already on pain medications. Chronic Systolic CHF: Seems clinically stable and euvolemic. Last echo from 01/29/15-LVEF 60-65% with grade 1 diastolic dysfunction and moderate septal L ventricular hypertrophy -Continue Carvedilol -Will give Lasix in between PRBC transfusions to avoid any fluid overload -Monitoring volume status Chronic Respiratory Failure: Due to COPD and is on chronic oxygen 2.5 L O2 at night and PRN during the day -No evidence of acute exacerbation -Continue home inhalers/ nebs Hypotension: Episodes of hypotension -possible due to severe anemia -Continue Carvedilol with holding parameters -Holding Lasix /Aldactone for now and will use as needed -Monitor BP closely History SAUCEDO/Portal Hypertension/Hepatic Lesions: EGD 03/29/16 did not show varices -Chronic Hyponatremia due to above -GI following her as outpatient History GERD: Continue Protonix drip DVT Prophylaxis: SCDs only in setting of GI bleed Code Status: FULL CODE Disposition: Pending. Vital Signs: Date Time Temp Pulse Resp B/P Pulse Ox O2 Delivery O2 Flow Rate FiO2 08/23/16 15:40 36.8 77 18 111/73 100 Nasal Cannula 3.0 08/23/16 12:00 Nasal Cannula 2.5 08/23/16 11:38 36.6 52 18 103/63 93 Nasal Cannula 3.0 08/23/16 08:00 Nasal Cannula 2.5 08/23/16 07:53 36.6 79 19 112/73 99 Nasal Cannula 3.0 08/23/16 04:00 Nasal Cannula 2.5 08/23/16 03:48 36.7 87 20 100/60 99 Nasal Cannula 2.5 08/23/16 00:06 36.3 84 20 104/54 98 Nasal Cannula 2.5 08/22/16 23:59 Nasal Cannula 2.5 08/22/16 20:00 Nasal Cannula 2.0 08/22/16 19:48 36.9 78 18 111/69 92 Room Air 08/22/16 19:30 85 20 97 Nasal Cannula 2.0 Lab Results: Results Past 24 Hours Test 08/22/16 20:28 08/23/16 01:29 08/23/16 05:20 08/23/16 06:29 Range/Units Bedside Glucose 185 151 149 70-90 mg/dl White Blood Count 9.03 4.8-10.8 K/uL Red Blood Count 3.36 4.2-5.4 M/uL Hemoglobin 8.3 12.0-16.0 g/dL Hematocrit 26.7 37-47 % Mean Corpuscular Volume 79.5 80-100 fL Mean Corpuscular Hemoglobin 24.7 25-34 pg Mean Corpuscular Hemoglobin Concent 31.1 32-36 g/dl RDW Standard Deviation 53.6 36.4-46.3 fL RDW Coefficient of Variation 19.0 11.5-14.5 % Platelet Count 215 130-400 K/uL Mean Platelet Volume 8.6 7.4-10.4 fL Sodium Level 133 136-145 mmol/L Potassium Level 4.3 3.5-5.1 mmol/L Chloride Level 96 98-107 mmol/L Carbon Dioxide Level 29 21-32 mmol/L Anion Gap 8.0 3-11 mmol/L Blood Urea Nitrogen 7 7-18 mg/dl Creatinine 0.79 0.60-1.20 mg/dl Est Creatinine Clear Calc Drug Dose 84.8 ml/min Estimated GFR () 89.8 Estimated GFR (Non- 77.5 BUN/Creatinine Ratio 9.0 10-20 Random Glucose 151 70-99 mg/dl Calcium Level 7.8 8.5-10.1 mg/dl Magnesium Level 1.9 1.8-2.4 mg/dl Test 08/23/16 11:14 Range/Units Bedside Glucose 163 70-90 mg/dl
[2016-08-23] MEDS: ALBUT/IPRATROP 3MG/0.5MG NEB 3 ML VIAL INH PRN (16:27)
--- NOTE | 2016-08-23 16:34 | Gastroenterology Progress Note ---
Progress Note Date of Service: Aug 23, 2016 Subjective Pt evaluation today including: conversation w/ patient, physical exam, chart review Patient was seen and examined today. she was resting comfortably in bed and was not wearing her O2. She reports that she is feeling much better and that this is the best she has felt in a while. HGB on admission was 4.3, received 5 units of blood and HGB today was 8. She reports having intermittent black stools. She reports they typically occur every other day. When they occur, it is only one BM daily. She denies any abd pain, nausea, vomiting BRBPR Review of Systems Constitutional: No chills, No fever Respiratory: No cough, No shortness of breath Cardiac: No chest pain, No edema Abdomen: + GI bleeding, No constipation, No diarrhea, No nausea, No pain, No vomiting Skin: No color change, No itch, No rash Medications Current Inpatient Medications Medications (Trade) Dose Ordered Sig/Sena Route Start Time Stop Time Status Last Admin Dose Admin Acetaminophen (Tylenol Tab) 650 mg Q4H PRN PO 08/20/16 04:45 09/19/16 04:44 Al Hydrox/Mg Hydrox/Simethicone (Maalox Max Susp) 15 ml Q4H PRN PO 08/20/16 04:45 09/19/16 04:44 Magnesium Hydroxide (Milk Of Magnesia Susp) 30 ml Q12H PRN PO 08/20/16 04:45 09/19/16 04:44 Ondansetron HCl (Zofran Inj) 4 mg Q6H PRN IV 08/20/16 04:45 09/19/16 04:44 Insulin Human Regular (novoLIN-R) SLIDING SCALE IF C... ACHS SC 08/20/16 06:45 09/19/16 06:59 08/23/16 11:56 3 UNITS Glucose (Glucose 40% Gel) 15-30 GRAMS 15 GRAMS... UD PRN PO 08/20/16 04:45 09/19/16 04:44 Glucose (Glucose Chew Tab) 4-8 Tablets 4 Tabl... UD PRN PO 08/20/16 04:45 09/19/16 04:44 Dextrose (Dextrose 50% 50ML Syringe) 25-50ML OF 50% DW IV FOR... UD PRN IV 08/20/16 04:45 09/19/16 04:44 Glucagon (Glucagon Inj) 1 mg UD PRN SQ 08/20/16 04:45 09/19/16 04:44 Amitriptyline HCl (Elavil Tab) 50 mg HS PO 08/20/16 21:00 09/19/16 20:59 08/22/16 19:34 50 MG Carvedilol (Coreg Tab) 3.125 mg BIDM PO 08/20/16 07:15 09/19/16 07:59 08/23/16 15:22 3.125 MG Lactobacillus Acidophilus (Lactinex Granules Pack) 1 gm TIDM PO 08/20/16 07:15 09/19/16 07:59 08/23/16 11:47 1 GM Lidocaine (Lidoderm Patch 5%) 1 patch DAILY TD 08/20/16 09:00 09/19/16 08:59 08/23/16 08:07 1 PATCH Multivitamins (Multivitamin Tab) 1 tab DAILY PO 08/20/16 09:00 09/19/16 08:59 08/23/16 08:06 1 TAB Nitroglycerin (Nitrostat Tab) 0.4 mg UD PRN UT 08/20/16 04:45 09/19/16 04:44 Oxycodone HCl (Oxycontin Tab) 20 mg Q12 PRN PO 08/20/16 04:45 09/03/16 04:44 08/23/16 08:22 20 MG Oxycodone HCl (Roxicodone Immediate Rel Tab) 5 mg Q6H PRN PO 08/20/16 04:45 09/03/16 04:44 08/23/16 15:21 5 MG Spironolactone (Aldactone Tab) 50 mg DAILY PO 08/20/16 09:00 09/19/16 08:59 08/23/16 08:03 50 MG Albuterol (Ventolin Hfa Inhaler) 2 puffs QID PRN INH 08/20/16 04:45 09/19/16 04:44 Miscellaneous (Remove Lidoderm Patch) 1 ea DAILY@21 N/A 08/20/16 21:00 09/19/16 20:59 08/22/16 19:34 1 EA Albuterol/ Ipratropium 3 ml 3 ml Q4R PRN INH 08/20/16 04:45 09/19/16 04:44 08/23/16 16:27 3 ML Ceftriaxone Sodium/Dextrose (Rocephin Inj/ Dextrose Add-Lawler 50ML) 50 ml @ 100 mls/hr DAILY@1400 IV 08/20/16 14:00 08/25/16 13:59 08/23/16 11:48 100 MLS/HR Lorazepam (Ativan Tab) 0.5 mg Q8 PRN PO 08/20/16 14:00 09/19/16 13:59 08/22/16 23:55 0.5 MG Multi-Ingredient Ointment (Eucerin Unscented Cr) 1 appln PRN PRN EXT 08/22/16 00:45 09/21/16 00:44 08/22/16 05:03 1 APPLN Pantoprazole Sodium 40 mg 40 mg BID PO 08/22/16 21:00 09/21/16 20:59 08/23/16 08:00 40 MG Ferric Sodium Gluconate/Sodium Chloride (Ferrlecit IV/ Nss 100ml) 108 ml @ 108 mls/hr TODAY@1700 ONCE IV 08/23/16 17:00 08/23/16 17:59 Polyethylene (Miralax Powder Packet) 17 gm DAILY PO 08/24/16 09:00 09/23/16 08:59 Polyethylene (Miralax Powder Packet) 17 gm TODAY@1700 ONCE PO 08/23/16 17:00 08/23/16 17:01 Objective Vital Signs Date Time Temp Pulse Resp B/P Pulse Ox O2 Delivery O2 Flow Rate FiO2 08/23/16 16:27 83 20 92 Nasal Cannula 2.0 08/23/16 15:40 36.8 77 18 111/73 100 Nasal Cannula 3.0 08/23/16 12:00 Nasal Cannula 2.5 08/23/16 11:38 36.6 52 18 103/63 93 Nasal Cannula 3.0 08/23/16 08:00 Nasal Cannula 2.5 08/23/16 07:53 36.6 79 19 112/73 99 Nasal Cannula 3.0 08/23/16 04:00 Nasal Cannula 2.5 08/23/16 03:48 36.7 87 20 100/60 99 Nasal Cannula 2.5 08/23/16 00:06 36.3 84 20 104/54 98 Nasal Cannula 2.5 08/22/16 23:59 Nasal Cannula 2.5 08/22/16 20:00 Nasal Cannula 2.0 08/22/16 19:48 36.9 78 18 111/69 92 Room Air 08/22/16 19:30 85 20 97 Nasal Cannula 2.0 Physical Exam General Appearance: + mild distress Eyes: PERRL ENT: hearing grossly normal Neck: supple, + adenopathy present Respiratory/Chest: lungs clear, normal breath sounds, no respiratory distress, no accessory muscle use Cardiovascular: regular rate, rhythm, no gallop, no JVD, no murmur Abdomen: normal bowel sounds, non tender, soft, no organomegaly, no pulsatile mass Neurologic/Psych: alert, normal mood/affect, oriented x 3 Skin: normal color, no jaundice, warm/dry Laboratory Results Last 24 Hours Test 08/22/16 20:28 08/23/16 01:29 08/23/16 05:20 08/23/16 06:29 Bedside Glucose 185 mg/dl 151 mg/dl 149 mg/dl White Blood Count 9.03 K/uL Red Blood Count 3.36 M/uL Hemoglobin 8.3 g/dL Hematocrit 26.7 % Mean Corpuscular Volume 79.5 fL Mean Corpuscular Hemoglobin 24.7 pg Mean Corpuscular Hemoglobin Concent 31.1 g/dl RDW Standard Deviation 53.6 fL RDW Coefficient of Variation 19.0 % Platelet Count 215 K/uL Mean Platelet Volume 8.6 fL Sodium Level 133 mmol/L Potassium Level 4.3 mmol/L Chloride Level 96 mmol/L Carbon Dioxide Level 29 mmol/L Anion Gap 8.0 mmol/L Blood Urea Nitrogen 7 mg/dl Creatinine 0.79 mg/dl Est Creatinine Clear Calc Drug Dose 84.8 ml/min Estimated GFR () 89.8 Estimated GFR (Non- 77.5 BUN/Creatinine Ratio 9.0 Random Glucose 151 mg/dl Calcium Level 7.8 mg/dl Magnesium Level 1.9 mg/dl Test 08/23/16 11:14 08/23/16 15:52 Bedside Glucose 163 mg/dl 148 mg/dl Assessment and Plan PPI BID NPO after midnight EGD on 08/24/16 monitor stools, watch H&H, transfuse if needed ATTESTATION: I have performed a history and physical examination of this patient and reviewed the electronic record. Specifically, on physical examination there is no abdominal tenderness. I have discussed the case with GLORIA Perry. The above note reflects my findings, conclusions, and recommendations. Grover Armas MD
[2016-08-23] MEDS ORDERED: POLYETHYLENE (MIRALAX) 17 GM PACK PO ONE (17:00)
[2016-08-23] MEDS ORDERED: SODIUM CHLORIDE 0.9% IV ONE (17:00)
[2016-08-23] MEDS ORDERED: SODIUM FERRIC GLUCONATE IV ONE (17:00)
--- NOTE | 2016-08-23 20:05 | DIAGNOSTIC IMAGING REPORT ---
LEFT FIRST TOE 5 VIEWS CLINICAL HISTORY: First toe infection. FINDINGS: 5 views of the left first toe are obtained. No prior studies are for comparison at the time of dictation. The skeletal structures are osteopenic. No fracture is seen. No acute bony abnormality is identified. No bony erosion or periostitis is seen. There is significant soft tissue edema present in the first toe and the visualized forefoot. There is a small focus of gas along the plantar aspect at the first level of the interphalangeal joint which likely represents a cutaneous ulceration. No radiodense foreign body is seen. IMPRESSION: 1. No acute bony abnormality is seen in the left first toe. 2. Findings suggest cellulitis and soft tissue ulceration. Clinical correlation will be required. Electronically signed by: Victor M Jackson M.D. 08/23/2016 8:04 PM Dictated Date/Time: 08/23/2016 8:02 PM
[2016-08-23] MEDS: AMITRIPTYLINE HCL 50 MG TAB PO SCH (21:02)
[2016-08-23] MEDS: LORAZEPAM 0.5 MG TAB PO PRN (21:10)
[2016-08-24 06:17] LABS: HEMATOCRIT 27.8 % (37-47); MEAN CELL VOLUME 79.2 fL (80-100); MEAN CORPUSCULAR HEMOGLOBIN 24.5 pg (25-34); MEAN CORPUSCULAR HGB CONC 30.9 g/dl (32-36); MEAN PLATELET VOLUME 8.6 fL (7.4-10.4); PLATELET COUNT 192 K/uL (130-400); RED BLOOD COUNT 3.51 M/uL (4.2-5.4); WHITE BLOOD COUNT 7.14 K/uL (4.8-10.8)
[2016-08-24 06:42] LABS: CALCIUM 8.1 mg/dl (8.5-10.1); CREATININE 0.73 mg/dl (0.60-1.20); MAGNESIUM 1.8 mg/dl (1.8-2.4); POTASSIUM 4.2 mmol/L (3.5-5.1)
[2016-08-24 06:53] VITALS: BP 109/61; PULSE 84; TEMP 36.7; O2SAT 92
[2016-08-24] MEDS: SPIRONOLACTONE 100 MG TAB PO SCH (07:25)
[2016-08-24] MEDS: LACTOBACILLUS ACIDOPHILUS 1 GM PACK PO SCH ×3 (07:26→17:00)
[2016-08-24] MEDS: INSULIN HUMAN REGULAR SC SCH ×4 (08:16→20:59)
[2016-08-24] MEDS: LIDODERM (LIDOCAINE) PATCH 5% TD SCH (08:18)
[2016-08-24] MEDS ORDERED: PROPOFOL IV EMULSION 10 MG/ML 20 ML VIAL IV ONE (10:55)
[2016-08-24] MEDS ORDERED: LIDOCAINE HCL 2% 2 ML VIAL (20MG/ML) ONE (10:55)
--- NOTE | 2016-08-24 11:39 | GI REPORT ---
Procedure Date: 08/24/2016 11:15 AM Procedure: Upper GI endoscopy Indications: Acute post hemorrhagic anemia, Watermelon stomach (GAVE syndrome) Medicines: Monitored Anesthesia Care Complications: No immediate complications. Estimated blood loss: None. Estimated Blood Loss: Estimated blood loss: none. Procedure: Pre-Anesthesia Assessment: - Prior to the procedure, a History and Physical was performed, and patient medications, allergies and sensitivities were reviewed. The patient's tolerance of previous anesthesia was reviewed. - ASA Grade Assessment: III - A patient with severe systemic disease. After obtaining informed consent, the endoscope was passed under direct vision. Throughout the procedure, the patient's blood pressure, pulse, and oxygen saturations were monitored continuously. The scope was introduced through the mouth, and advanced to the third part of duodenum. The upper GI endoscopy was accomplished with ease. The patient tolerated the procedure well. Findings: The examined esophagus was normal. The Z-line was regular and was found 40 cm from the incisors. Moderate gastric antral vascular ectasia was present in the gastric antrum. Coagulation for tissue destruction using argon plasma at 1.4 liters/minute and 35 núñez was successful. The examined duodenum was normal. Impression: - Normal esophagus. - Z-line regular, 40 cm from the incisors. - Gastric antral vascular ectasia. Treated with argon plasma coagulation (APC). - Normal examined duodenum. - No specimens collected. Recommendation: - Return patient to [facility] for ongoing care. Grover Armas M.D. Grover Armas MD 08/24/2016 11:39:06 AM This report has been signed electronically. Note Initiated On: 08/24/2016 11:15 AM I attest to the content of the Intraoperative Record and orders documented therein, exceptions below
[2016-08-24] MEDS ORDERED: ONDANSETRON INJ 2 MG/ML 2 ML VIAL ONE (11:59)
--- NOTE | 2016-08-24 12:17 | Anesthesiology Progress Note ---
Anesthesia Post Op Note Date & Time Aug 24, 2016 at 12:18 Vital Signs Pain Intensity: 0 Vital Signs Past 12 Hours Date Time Temp Pulse Resp B/P Pulse Ox O2 Delivery O2 Flow Rate FiO2 08/24/16 12:02 88 20 118/67 94 Nasal Cannula 2 08/24/16 11:38 84 20 107/54 99 Diffusion Mask 6 08/24/16 10:37 37.3 92 22 149/72 98 Nasal Cannula 2.0 08/24/16 08:00 Room Air 08/24/16 06:53 36.7 84 20 109/61 92 Room Air Notes Mental Status: alert / awake / arousable, participated in evaluation Pt Amnestic to Procedure: Yes Nausea / Vomiting: adequately controlled Pain: adequately controlled Airway Patency, RR, SpO2: stable & adequate BP & HR: stable & adequate Hydration State: stable & adequate Anesthetic Complications: no major complications apparent
[2016-08-24 12:35] VITALS: BP 143/75; PULSE 88; TEMP 36.7; O2SAT 91
[2016-08-24] MEDS: LORAZEPAM 0.5 MG TAB PO PRN (12:43)
[2016-08-24] MEDS: OXYCODONE HCL 20 MG TABCR (OXYCONTIN) PO PRN (12:43)
[2016-08-24] MEDS: PANTOprazole SOD 40 MG TAB PO SCH ×2 (12:49→21:04)
[2016-08-24] MEDS: MULTIVITAMIN TAB PO SCH (12:49)
[2016-08-24] MEDS: POLYETHYLENE (MIRALAX) 17 GM PACK PO SCH (12:49)
[2016-08-24] MEDS: CARVEDILOL 3.125 MG TAB PO SCH ×2 (12:59→21:03)
[2016-08-24] MEDS: CEFTRIAXONE SOD INJ 1 GM in DEXTROSE 5% ADD-VANTAGE 50ML 50 ML IV SCH (13:35)
[2016-08-24 16:06] VITALS: BP 136/78; PULSE 93; TEMP 36.6; O2SAT 92
--- NOTE | 2016-08-24 19:08 | Progress Note ---
Medicine Progress Note Date & Time of Visit: Aug 24, 2016 at 18:42. Subjective Pt was seen and examined Sitting in bed with no distress Pt said that she feels good she denies any chest pain, palpitation, dizziness and SOB Objective Last 8 Hrs Date Time Temp Pulse Resp B/P Pulse Ox O2 Delivery O2 Flow Rate FiO2 08/24/16 16:06 36.6 93 18 136/78 92 Nasal Cannula 2.0 08/24/16 16:00 Room Air 08/24/16 12:35 36.7 88 20 143/75 91 Room Air 08/24/16 12:02 88 20 118/67 94 Nasal Cannula 2 08/24/16 11:38 84 20 107/54 99 Diffusion Mask 6 Physical Exam: General- no acute distress Head- atraumatic Eyes- PERRL, EOMI ENT- oropharynx clear Neck- supple, no JVD Lungs- clear to auscultation and percussion Heart- regular rhythm; no murmur Abdomen- normal bowel sounds Extremities- no calf tenderness Neuro- alert, oriented x 3; PERRL, EOMI; no facial palsy Laboratory Results: Last 24 Hours Test 08/23/16 20:08 08/24/16 05:10 08/24/16 07:48 08/24/16 12:59 Bedside Glucose 183 mg/dl 120 mg/dl 141 mg/dl White Blood Count 7.14 K/uL Red Blood Count 3.51 M/uL Hemoglobin 8.6 g/dL Hematocrit 27.8 % Mean Corpuscular Volume 79.2 fL Mean Corpuscular Hemoglobin 24.5 pg Mean Corpuscular Hemoglobin Concent 30.9 g/dl RDW Standard Deviation 54.3 fL RDW Coefficient of Variation 20.7 % Platelet Count 192 K/uL Mean Platelet Volume 8.6 fL Sodium Level 134 mmol/L Potassium Level 4.2 mmol/L Chloride Level 98 mmol/L Carbon Dioxide Level 27 mmol/L Anion Gap 9.0 mmol/L Blood Urea Nitrogen 7 mg/dl Creatinine 0.73 mg/dl Est Creatinine Clear Calc Drug Dose 91.7 ml/min Estimated GFR () 98.8 Estimated GFR (Non- 85.2 BUN/Creatinine Ratio 9.0 Random Glucose 130 mg/dl Calcium Level 8.1 mg/dl Magnesium Level 1.8 mg/dl Test 08/24/16 16:45 Bedside Glucose 150 mg/dl Assessment & Plan 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 Treated with argon plasma coagulation (APC). Colonoscopy 12/2015 was normal She missed her follow up appointment at [facility] for IR guided ablation of AVM. Will schedule [place] [facility] [place] Continue monitor h/h advanced diet as tolerated Recent UTI urine culture on 08/12/16 grew Proteus Mirabilis which is resistant to Cipro / Levaquin Continue Rocephin (Day # 5). Needs for total 7 days UA was negative Diabetes Type II Continue holding metformin Monitor BS closely and cover as per sliding scale. Left Hip pain X-Ray is negative for acute abnormality Continue pain med Chronic Systolic CHF Last echo from 01/29/15-LVEF 60-65% with grade 1 diastolic dysfunction and moderate septal L ventricular hypertrophy Continue Carvedilol Stable Chronic Respiratory Failure related to COPD Continue oxygen supplement Continue nebs treatment Stable Hypotension Stable Continue Carvedilol and aldactone continue Monitor BP closely History SAUCEDO/Portal Hypertension/Hepatic Lesions: EGD 03/29/16 and 08/24/16 did not show varices Stable History GERD On protonix BID DVT Prophylaxis SCDs due to GI bleed Code Status FULL CODE Current Inpatient Medications: Current Inpatient Medications Medications (Trade) Dose Ordered Sig/Sena Route Start Time Stop Time Status Last Admin Dose Admin Acetaminophen (Tylenol Tab) 650 mg Q4H PRN PO 08/20/16 04:45 09/19/16 04:44 Al Hydrox/Mg Hydrox/Simethicone (Maalox Max Susp) 15 ml Q4H PRN PO 08/20/16 04:45 09/19/16 04:44 Magnesium Hydroxide (Milk Of Magnesia Susp) 30 ml Q12H PRN PO 08/20/16 04:45 09/19/16 04:44 Ondansetron HCl (Zofran Inj) 4 mg Q6H PRN IV 08/20/16 04:45 09/19/16 04:44 Insulin Human Regular (novoLIN-R) SLIDING SCALE IF C... ACHS SC 08/20/16 06:45 09/19/16 06:59 08/24/16 18:35 2 UNITS Glucose (Glucose 40% Gel) 15-30 GRAMS 15 GRAMS... UD PRN PO 08/20/16 04:45 09/19/16 04:44 Glucose (Glucose Chew Tab) 4-8 Tablets 4 Tabl... UD PRN PO 08/20/16 04:45 09/19/16 04:44 Dextrose (Dextrose 50% 50ML Syringe) 25-50ML OF 50% DW IV FOR... UD PRN IV 08/20/16 04:45 09/19/16 04:44 Glucagon (Glucagon Inj) 1 mg UD PRN SQ 08/20/16 04:45 09/19/16 04:44 Amitriptyline HCl (Elavil Tab) 50 mg HS PO 08/20/16 21:00 09/19/16 20:59 08/23/16 21:02 50 MG Carvedilol (Coreg Tab) 3.125 mg BIDM PO 08/20/16 07:15 09/19/16 07:59 08/24/16 12:59 3.125 MG Lactobacillus Acidophilus (Lactinex Granules Pack) 1 gm TIDM PO 08/20/16 07:15 09/19/16 07:59 08/23/16 11:47 1 GM Lidocaine (Lidoderm Patch 5%) 1 patch DAILY TD 08/20/16 09:00 09/19/16 08:59 08/24/16 08:18 1 PATCH Multivitamins (Multivitamin Tab) 1 tab DAILY PO 08/20/16 09:00 09/19/16 08:59 08/23/16 08:06 1 TAB Nitroglycerin (Nitrostat Tab) 0.4 mg UD PRN UT 08/20/16 04:45 09/19/16 04:44 Oxycodone HCl (Oxycontin Tab) 20 mg Q12 PRN PO 08/20/16 04:45 09/03/16 04:44 08/24/16 12:43 20 MG Oxycodone HCl (Roxicodone Immediate Rel Tab) 5 mg Q6H PRN PO 08/20/16 04:45 09/03/16 04:44 08/23/16 15:21 5 MG Spironolactone (Aldactone Tab) 50 mg DAILY PO 08/20/16 09:00 09/19/16 08:59 08/23/16 08:03 50 MG Albuterol (Ventolin Hfa Inhaler) 2 puffs QID PRN INH 08/20/16 04:45 09/19/16 04:44 08/24/16 10:08 2 PUFFS Miscellaneous (Remove Lidoderm Patch) 1 ea DAILY@21 N/A 08/20/16 21:00 09/19/16 20:59 08/23/16 21:03 1 EA Albuterol/ Ipratropium 3 ml 3 ml Q4R PRN INH 08/20/16 04:45 09/19/16 04:44 08/23/16 16:27 3 ML Ceftriaxone Sodium/Dextrose (Rocephin Inj/ Dextrose Add-[place] 50ML) 50 ml @ 100 mls/hr DAILY@1400 IV 08/20/16 14:00 08/25/16 13:59 08/24/16 13:35 100 MLS/HR Lorazepam (Ativan Tab) 0.5 mg Q8 PRN PO 08/20/16 14:00 09/19/16 13:59 08/24/16 12:43 0.5 MG Multi-Ingredient Ointment (Eucerin Unscented Cr) 1 appln PRN PRN EXT 08/22/16 00:45 09/21/16 00:44 08/22/16 05:03 1 APPLN Pantoprazole Sodium (Protonix Tab) 40 mg BID PO 08/22/16 21:00 09/21/16 20:59 08/23/16 21:02 40 MG Polyethylene (Miralax Powder Packet) 17 gm DAILY PO 08/24/16 08:00 09/23/16 08:59
[2016-08-24 20:00] VITALS: BP 109/68; PULSE 80
[2016-08-24] MEDS: AMITRIPTYLINE HCL 50 MG TAB PO SCH (21:05)
[2016-08-24] MEDS: OXYCODONE HCL IR 5 MG TAB (IMMEDIATE RELEASE) PO PRN (21:06)
[2016-08-24] MEDS: ONDANSETRON INJ 2 MG/ML 2 ML VIAL IV PRN (22:20)
[2016-08-25 00:20] VITALS: BP 154/70; PULSE 96; TEMP 36.7; O2SAT 92
[2016-08-25] MEDS: LORAZEPAM 0.5 MG TAB PO PRN (00:27)
[2016-08-25] MEDS: OXYCODONE HCL 20 MG TABCR (OXYCONTIN) PO PRN ×2 (00:50→18:51)
[2016-08-25] MEDS ORDERED: PROMETHAZINE HCL INJ 12.5 MG in SODIUM CHLORIDE 0.9% 50ML 50 ML IV PRN (02:45)
[2016-08-25] MEDS ORDERED: ONDANSETRON INJ 2 MG/ML 2 ML VIAL IV PRN (02:45)
[2016-08-25 06:10] LABS: HEMATOCRIT 31.7 % (37-47); MEAN CELL VOLUME 81.9 fL (80-100); MEAN CORPUSCULAR HEMOGLOBIN 24.5 pg (25-34); MEAN PLATELET VOLUME 8.8 fL (7.4-10.4); PLATELET COUNT 178 K/uL (130-400); RED BLOOD COUNT 3.87 M/uL (4.2-5.4); WHITE BLOOD COUNT 8.47 K/uL (4.8-10.8)
[2016-08-25 06:41] LABS: BUN/CREATININE RATIO 10.7 (10-20); CALCIUM 8.2 mg/dl (8.5-10.1); CREATININE 0.67 mg/dl (0.60-1.20); POTASSIUM 4.1 mmol/L (3.5-5.1)
[2016-08-25 08:11] VITALS: BP 163/84; PULSE 95; TEMP 37.3; O2SAT 96
[2016-08-25] MEDS: MULTIVITAMIN TAB PO SCH (09:38)
[2016-08-25] MEDS: CARVEDILOL 3.125 MG TAB PO SCH ×2 (09:39→18:51)
[2016-08-25] MEDS: SPIRONOLACTONE 100 MG TAB PO SCH (09:39)
[2016-08-25] MEDS: PANTOprazole SOD 40 MG TAB PO SCH ×2 (09:39→20:19)
[2016-08-25] MEDS: LACTOBACILLUS ACIDOPHILUS 1 GM PACK PO SCH ×3 (09:40→17:00)
[2016-08-25] MEDS: POLYETHYLENE (MIRALAX) 17 GM PACK PO SCH (09:40)
[2016-08-25] MEDS: LIDODERM (LIDOCAINE) PATCH 5% TD SCH (09:43)
[2016-08-25] MEDS: ONDANSETRON INJ 2 MG/ML 2 ML VIAL IV PRN ×2 (09:44→18:52)
[2016-08-25] MEDS: INSULIN HUMAN REGULAR SC SCH ×4 (09:49→20:25)
--- NOTE | 2016-08-25 12:36 | Gastroenterology Progress Note ---
Progress Note Date of Service: Aug 25, 2016 Subjective Pt evaluation today including: conversation w/ patient, physical exam, chart review, lab review 66yo with COPD on home O2, SAUCEDO cirrhosis with hx of GAVE, GI bleeding requiring multiple transfusions s/p EGD yesterday revealing AVM and treated with APC. Pt's only c/o this morning is nausea but no vomiting. Nursing administering Zofran at bedside. hgb 8.6 up to 9.5. No reported melena. Review of Systems Constitutional: No fever Eyes: No problem reported ENT: No hearing loss Respiratory: + problem reported (chronic COPD on home O2), No cough, No shortness of breath Cardiac: No chest pain Abdomen: + nausea, + see HPI Neuro: No problem reported Medications Current Inpatient Medications Medications (Trade) Dose Ordered Sig/Sena Route Start Time Stop Time Status Last Admin Dose Admin Acetaminophen (Tylenol Tab) 650 mg Q4H PRN PO 08/20/16 04:45 09/19/16 04:44 Al Hydrox/Mg Hydrox/Simethicone (Maalox Max Susp) 15 ml Q4H PRN PO 08/20/16 04:45 09/19/16 04:44 Magnesium Hydroxide (Milk Of Magnesia Susp) 30 ml Q12H PRN PO 08/20/16 04:45 09/19/16 04:44 Ondansetron HCl (Zofran Inj) 4 mg Q6H PRN IV 08/20/16 04:45 09/19/16 04:44 08/25/16 09:44 4 MG Insulin Human Regular (novoLIN-R) SLIDING SCALE IF C... ACHS SC 08/20/16 06:45 09/19/16 06:59 08/25/16 09:49 1 UNITS Glucose (Glucose 40% Gel) 15-30 GRAMS 15 GRAMS... UD PRN PO 08/20/16 04:45 09/19/16 04:44 Glucose (Glucose Chew Tab) 4-8 Tablets 4 Tabl... UD PRN PO 08/20/16 04:45 09/19/16 04:44 Dextrose (Dextrose 50% 50ML Syringe) 25-50ML OF 50% DW IV FOR... UD PRN IV 08/20/16 04:45 09/19/16 04:44 Glucagon (Glucagon Inj) 1 mg UD PRN SQ 08/20/16 04:45 09/19/16 04:44 Amitriptyline HCl (Elavil Tab) 50 mg HS PO 08/20/16 21:00 09/19/16 20:59 08/24/16 21:05 50 MG Carvedilol (Coreg Tab) 3.125 mg BIDM PO 08/20/16 07:15 09/19/16 07:59 08/25/16 09:39 3.125 MG Lactobacillus Acidophilus (Lactinex Granules Pack) 1 gm TIDM PO 08/20/16 07:15 09/19/16 07:59 08/23/16 11:47 1 GM Lidocaine (Lidoderm Patch 5%) 1 patch DAILY TD 08/20/16 09:00 09/19/16 08:59 08/25/16 09:43 1 PATCH Multivitamins (Multivitamin Tab) 1 tab DAILY PO 08/20/16 09:00 09/19/16 08:59 08/25/16 09:38 1 TAB Nitroglycerin (Nitrostat Tab) 0.4 mg UD PRN UT 08/20/16 04:45 09/19/16 04:44 Oxycodone HCl (Oxycontin Tab) 20 mg Q12 PRN PO 08/20/16 04:45 09/03/16 04:44 08/25/16 00:50 20 MG Oxycodone HCl (Roxicodone Immediate Rel Tab) 5 mg Q6H PRN PO 08/20/16 04:45 09/03/16 04:44 08/24/16 21:06 5 MG Spironolactone (Aldactone Tab) 50 mg DAILY PO 08/20/16 09:00 09/19/16 08:59 08/25/16 09:39 50 MG Albuterol (Ventolin Hfa Inhaler) 2 puffs QID PRN INH 08/20/16 04:45 09/19/16 04:44 08/24/16 10:08 2 PUFFS Miscellaneous (Remove Lidoderm Patch) 1 ea DAILY@21 N/A 08/20/16 21:00 09/19/16 20:59 08/24/16 21:07 1 EA Albuterol/ Ipratropium 3 ml 3 ml Q4R PRN INH 08/20/16 04:45 09/19/16 04:44 08/23/16 16:27 3 ML Ceftriaxone Sodium/Dextrose (Rocephin Inj/ Dextrose Add-[place] 50ML) 50 ml @ 100 mls/hr DAILY@1400 IV 08/20/16 14:00 08/25/16 13:59 08/24/16 13:35 100 MLS/HR Lorazepam (Ativan Tab) 0.5 mg Q8 PRN PO 08/20/16 14:00 09/19/16 13:59 08/25/16 00:27 0.5 MG Multi-Ingredient Ointment (Eucerin Unscented Cr) 1 appln PRN PRN EXT 08/22/16 00:45 09/21/16 00:44 08/22/16 05:03 1 APPLN Pantoprazole Sodium (Protonix Tab) 40 mg BID PO 08/22/16 21:00 09/21/16 20:59 08/25/16 09:39 40 MG Polyethylene (Miralax Powder Packet) 17 gm DAILY PO 08/24/16 08:00 09/23/16 08:59 08/25/16 09:40 17 GM Ondansetron HCl 4 mg 4 mg Q6H PRN IV 08/25/16 02:45 09/24/16 02:44 Promethazine HCl/ Sodium Chloride (Phenergan Inj/ Nss 50ml) 50.5 ml @ 204 mls/hr Q6H PRN IV 08/25/16 02:45 09/24/16 02:44 08/25/16 04:34 204 MLS/HR Objective Vital Signs Date Time Temp Pulse Resp B/P Pulse Ox O2 Delivery O2 Flow Rate FiO2 08/25/16 09:40 Room Air 08/25/16 08:11 37.3 95 16 163/84 96 Room Air 08/25/16 00:45 Room Air 08/25/16 00:20 36.7 96 20 154/70 92 Room Air 08/24/16 20:00 80 109/68 08/24/16 16:06 36.6 93 18 136/78 92 Nasal Cannula 2.0 08/24/16 16:00 Room Air 08/24/16 12:35 36.7 88 20 143/75 91 Room Air Physical Exam General Appearance: no apparent distress, + obese Eyes: PERRL ENT: normal ENT inspection, hearing grossly normal Respiratory/Chest: normal breath sounds, no respiratory distress Abdomen: normal bowel sounds, non tender (large abdominal pannus), soft Neurologic/Psych: alert, normal mood/affect, oriented x 3 Skin: normal color Laboratory Results Last 24 Hours Test 08/24/16 12:59 08/24/16 16:45 08/24/16 20:25 08/25/16 05:10 Bedside Glucose 141 mg/dl 150 mg/dl 150 mg/dl White Blood Count 8.47 K/uL Red Blood Count 3.87 M/uL Hemoglobin 9.5 g/dL Hematocrit 31.7 % Mean Corpuscular Volume 81.9 fL Mean Corpuscular Hemoglobin 24.5 pg Mean Corpuscular Hemoglobin Concent 30.0 g/dl RDW Standard Deviation 59.9 fL RDW Coefficient of Variation 21.3 % Platelet Count 178 K/uL Mean Platelet Volume 8.8 fL Sodium Level 134 mmol/L Potassium Level 4.1 mmol/L Chloride Level 98 mmol/L Carbon Dioxide Level 25 mmol/L Anion Gap 11.0 mmol/L Blood Urea Nitrogen 7 mg/dl Creatinine 0.67 mg/dl Est Creatinine Clear Calc Drug Dose 99.9 ml/min Estimated GFR () 105.4 Estimated GFR (Non- 91.0 BUN/Creatinine Ratio 10.7 Random Glucose 160 mg/dl Calcium Level 8.2 mg/dl Test 08/25/16 07:46 08/25/16 11:24 Bedside Glucose 156 mg/dl 170 mg/dl Assessment and Plan SAUCEDO cirrhosis with hx of GAVE, GI bleeding requiring multiple transfusions s/p EGD with AVM, had APC treatment yesterday hgb improved today consider Reglan 5mg AC orally while admitted for nausea - does not need continued as out patient advance diet as tolerated continue PPI as out patient out patient GI follow up with her regular provider. ATTESTATION: I have performed a history and physical examination of this patient and reviewed the electronic record. Specifically, on physical examination there is no sign of further bleeding. Plan is for retreatment of GAVE in two months by advanced endscopy in [place]. I have discussed the case with BUDDY Preston. The above note reflects my findings, conclusions, and recommendations. Grover Armas MD
[2016-08-25 15:17] VITALS: BP 119/70; PULSE 84; TEMP 36.8; O2SAT 98
--- NOTE | 2016-08-25 15:39 | Progress Note ---
Medicine Progress Note Date & Time of Visit: Aug 25, 2016 at 15:27. Subjective Pt was seen and examined Lying in bed with no distress Pt said that she feels ok except she had some nausea early today denies any chest pain, palpitation, dizziness a SOB Objective Last 8 Hrs Date Time Temp Pulse Resp B/P Pulse Ox O2 Delivery O2 Flow Rate FiO2 08/25/16 15:17 36.8 84 16 119/70 98 Nasal Cannula 2.0 08/25/16 09:40 Room Air 08/25/16 08:11 37.3 95 16 163/84 96 Room Air 08/25/16 08:00 Room Air Physical Exam: General- no acute distress Head- atraumatic Eyes- PERRL, EOMI ENT- oropharynx clear Neck- supple, no JVD Lungs- clear to auscultation and percussion Heart- regular rhythm; no murmur Abdomen- normal bowel sounds Extremities- no calf tenderness Neuro- alert, oriented x 3; PERRL, EOMI; no facial palsy Laboratory Results: Last 24 Hours Test 08/24/16 16:45 08/24/16 20:25 08/25/16 05:10 08/25/16 07:46 Bedside Glucose 150 mg/dl 150 mg/dl 156 mg/dl White Blood Count 8.47 K/uL Red Blood Count 3.87 M/uL Hemoglobin 9.5 g/dL Hematocrit 31.7 % Mean Corpuscular Volume 81.9 fL Mean Corpuscular Hemoglobin 24.5 pg Mean Corpuscular Hemoglobin Concent 30.0 g/dl RDW Standard Deviation 59.9 fL RDW Coefficient of Variation 21.3 % Platelet Count 178 K/uL Mean Platelet Volume 8.8 fL Sodium Level 134 mmol/L Potassium Level 4.1 mmol/L Chloride Level 98 mmol/L Carbon Dioxide Level 25 mmol/L Anion Gap 11.0 mmol/L Blood Urea Nitrogen 7 mg/dl Creatinine 0.67 mg/dl Est Creatinine Clear Calc Drug Dose 99.9 ml/min Estimated GFR () 105.4 Estimated GFR (Non- 91.0 BUN/Creatinine Ratio 10.7 Random Glucose 160 mg/dl Calcium Level 8.2 mg/dl Test 08/25/16 11:24 Bedside Glucose 170 mg/dl Date/Time Source Procedure Growth Status 08/25/16 11:45 Tissue Toe Left 1 Gram Stain - Final Resulted 08/25/16 11:45 Tissue Toe Left 1 Wound Culture Pending Resulted Assessment & Plan Symptomatic Anemia due to GI Bleeding 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 Treated with argon plasma coagulation (APC). Colonoscopy 12/2015 was normal She missed her follow up appointment at [facility] for IR guided ablation of AVM. Will need to schedule for a follow up appt with [facility] [place] Continue monitor h/h advanced diet as tolerated Recent UTI urine culture on 08/12/16 grew Proteus Mirabilis which is resistant to Cipro / Levaquin Continue Rocephin (Day # 6). Needs for total 7 days UA was negative Diabetes Type II Continue holding metformin Monitor BS closely and cover as per sliding scale. LEFT TOE WOUND Wound care consulted Continue daily wound care will transfer to rehab for wound care Will follow up with wound clinic upon discharge to rehab Left Hip pain X-Ray is negative for acute abnormality Continue pain med Chronic Systolic CHF Last echo from 01/29/15-LVEF 60-65% with grade 1 diastolic dysfunction and moderate septal L ventricular hypertrophy Continue Carvedilol Stable Chronic Respiratory Failure related to COPD Continue oxygen supplement Continue nebs treatment Stable Hypotension Stable Continue Carvedilol and aldactone continue Monitor BP closely History SAUCEDO/Portal Hypertension/Hepatic Lesions: EGD 03/29/16 and 08/24/16 did not show varices Stable History GERD On protonix BID DVT Prophylaxis SCDs due to GI bleed Code Status FULL CODE DISPOSITION Discharge tomorrow to [facility] rehab Current Inpatient Medications: Current Inpatient Medications Medications (Trade) Dose Ordered Sig/Sena Route Start Time Stop Time Status Last Admin Dose Admin Acetaminophen (Tylenol Tab) 650 mg Q4H PRN PO 08/20/16 04:45 09/19/16 04:44 Al Hydrox/Mg Hydrox/Simethicone (Maalox Max Susp) 15 ml Q4H PRN PO 08/20/16 04:45 09/19/16 04:44 Magnesium Hydroxide (Milk Of Magnesia Susp) 30 ml Q12H PRN PO 08/20/16 04:45 09/19/16 04:44 Ondansetron HCl (Zofran Inj) 4 mg Q6H PRN IV 08/20/16 04:45 09/19/16 04:44 08/25/16 09:44 4 MG Insulin Human Regular (novoLIN-R) SLIDING SCALE IF C... ACHS SC 08/20/16 06:45 09/19/16 06:59 08/25/16 12:55 3 UNITS Glucose (Glucose 40% Gel) 15-30 GRAMS 15 GRAMS... UD PRN PO 08/20/16 04:45 09/19/16 04:44 Glucose (Glucose Chew Tab) 4-8 Tablets 4 Tabl... UD PRN PO 08/20/16 04:45 09/19/16 04:44 Dextrose (Dextrose 50% 50ML Syringe) 25-50ML OF 50% DW IV FOR... UD PRN IV 08/20/16 04:45 09/19/16 04:44 Glucagon (Glucagon Inj) 1 mg UD PRN SQ 08/20/16 04:45 09/19/16 04:44 Amitriptyline HCl (Elavil Tab) 50 mg HS PO 08/20/16 21:00 09/19/16 20:59 08/24/16 21:05 50 MG Carvedilol (Coreg Tab) 3.125 mg BIDM PO 08/20/16 07:15 09/19/16 07:59 08/25/16 09:39 3.125 MG Lactobacillus Acidophilus (Lactinex Granules Pack) 1 gm TIDM PO 08/20/16 07:15 09/19/16 07:59 08/23/16 11:47 1 GM Lidocaine (Lidoderm Patch 5%) 1 patch DAILY TD 08/20/16 09:00 09/19/16 08:59 08/25/16 09:43 1 PATCH Multivitamins (Multivitamin Tab) 1 tab DAILY PO 08/20/16 09:00 09/19/16 08:59 08/25/16 09:38 1 TAB Nitroglycerin (Nitrostat Tab) 0.4 mg UD PRN UT 08/20/16 04:45 09/19/16 04:44 Oxycodone HCl (Oxycontin Tab) 20 mg Q12 PRN PO 08/20/16 04:45 09/03/16 04:44 08/25/16 00:50 20 MG Oxycodone HCl (Roxicodone Immediate Rel Tab) 5 mg Q6H PRN PO 08/20/16 04:45 09/03/16 04:44 08/24/16 21:06 5 MG Spironolactone (Aldactone Tab) 50 mg DAILY PO 08/20/16 09:00 09/19/16 08:59 08/25/16 09:39 50 MG Albuterol (Ventolin Hfa Inhaler) 2 puffs QID PRN INH 08/20/16 04:45 09/19/16 04:44 08/24/16 10:08 2 PUFFS Miscellaneous (Remove Lidoderm Patch) 1 ea DAILY@21 N/A 08/20/16 21:00 09/19/16 20:59 08/24/16 21:07 1 EA Albuterol/ Ipratropium (Duoneb) 3 ml Q4R PRN INH 08/20/16 04:45 09/19/16 04:44 08/23/16 16:27 3 ML Lorazepam (Ativan Tab) 0.5 mg Q8 PRN PO 08/20/16 14:00 09/19/16 13:59 08/25/16 00:27 0.5 MG Multi-Ingredient Ointment (Eucerin Unscented Cr) 1 appln PRN PRN EXT 08/22/16 00:45 09/21/16 00:44 08/22/16 05:03 1 APPLN Pantoprazole Sodium (Protonix Tab) 40 mg BID PO 08/22/16 21:00 09/21/16 20:59 08/25/16 09:39 40 MG Polyethylene (Miralax Powder Packet) 17 gm DAILY PO 08/24/16 08:00 09/23/16 08:59 08/25/16 09:40 17 GM Ondansetron HCl 4 mg 4 mg Q6H PRN IV 08/25/16 02:45 09/24/16 02:44 Promethazine HCl/ Sodium Chloride (Phenergan Inj/ Nss 50ml) 50.5 ml @ 204 mls/hr Q6H PRN IV 08/25/16 02:45 09/24/16 02:44 08/25/16 04:34 204 MLS/HR
[2016-08-25 16:20] VITALS: O2SAT 98
[2016-08-25] MEDS: METOCLOPRAMIDE HCL 5 MG TAB PO PRN (20:17)
[2016-08-25] MEDS: AMITRIPTYLINE HCL 50 MG TAB PO SCH (20:19)
[2016-08-26 00:04] VITALS: BP 121/69; PULSE 83; TEMP 36.6; O2SAT 100
[2016-08-26 06:13] LABS: HEMATOCRIT 30.2 % (37-47); MEAN CORPUSCULAR HEMOGLOBIN 24.7 pg (25-34); MEAN CORPUSCULAR HGB CONC 30.5 g/dl (32-36); MEAN PLATELET VOLUME 8.6 fL (7.4-10.4); PLATELET COUNT 222 K/uL (130-400); RED BLOOD COUNT 3.73 M/uL (4.2-5.4); WHITE BLOOD COUNT 11.36 K/uL (4.8-10.8)
[2016-08-26 07:06] VITALS: BP 148/78; PULSE 87; TEMP 36.7; O2SAT 93
[2016-08-26] MEDS: METOCLOPRAMIDE HCL 5 MG TAB PO PRN (07:59)
[2016-08-26] MEDS: LACTOBACILLUS ACIDOPHILUS 1 GM PACK PO SCH ×2 (08:00→11:50)
[2016-08-26] MEDS: OXYCODONE HCL 20 MG TABCR (OXYCONTIN) PO PRN (08:03)
[2016-08-26] MEDS: OXYCODONE HCL IR 5 MG TAB (IMMEDIATE RELEASE) PO PRN ×2 (08:03→13:51)
[2016-08-26] MEDS: PANTOprazole SOD 40 MG TAB PO SCH (08:04)
[2016-08-26] MEDS: LIDODERM (LIDOCAINE) PATCH 5% TD SCH (08:05)
[2016-08-26] MEDS: SPIRONOLACTONE 100 MG TAB PO SCH (08:05)
[2016-08-26] MEDS: POLYETHYLENE (MIRALAX) 17 GM PACK PO SCH (08:05)
[2016-08-26] MEDS: MULTIVITAMIN TAB PO SCH (08:05)
[2016-08-26] MEDS: CARVEDILOL 3.125 MG TAB PO SCH (08:05)
[2016-08-26] MEDS: INSULIN HUMAN REGULAR SC SCH ×2 (08:41→13:51)
[2016-08-26 10:27] VITALS: PULSE 82; O2SAT 93
[2016-08-26] MEDS: ALBUT/IPRATROP 3MG/0.5MG NEB 3 ML VIAL INH PRN (10:27)
[2016-08-26 11:11] VITALS: BP 148/78; PULSE 82; TEMP 36.7; O2SAT 93
[2016-08-26] MEDS: LORAZEPAM 0.5 MG TAB PO PRN (13:51)
--- NOTE | 2016-08-26 14:30 | Progress Note ---
Medicine Progress Note Date & Time of Visit: Aug 26, 2016 at 14:26. Subjective Pt was seen and examined Sitting in bed comfortable with no distress Pt said that she feels good denies any chest pain, palpitation and sob Objective Last 8 Hrs Date Time Temp Pulse Resp B/P Pulse Ox O2 Delivery O2 Flow Rate FiO2 08/26/16 11:11 36.7 82 20 93 Room Air 08/26/16 10:27 82 20 93 Room Air 08/26/16 08:00 Room Air 08/26/16 07:06 36.7 87 18 148/78 93 Room Air Physical Exam: General- no acute distress Head- atraumatic Eyes- PERRL, EOMI ENT- oropharynx clear Neck- supple, no JVD Lungs- clear to auscultation and percussion Heart- regular rhythm; no murmur Abdomen- normal bowel sounds Extremities- no calf tenderness Neuro- alert, oriented x 3; PERRL, EOMI; no facial palsy Laboratory Results: Last 24 Hours Test 08/25/16 16:27 08/25/16 20:17 08/26/16 05:12 08/26/16 07:56 Bedside Glucose 164 mg/dl 167 mg/dl 136 mg/dl White Blood Count 11.36 K/uL Red Blood Count 3.73 M/uL Hemoglobin 9.2 g/dL Hematocrit 30.2 % Mean Corpuscular Volume 81.0 fL Mean Corpuscular Hemoglobin 24.7 pg Mean Corpuscular Hemoglobin Concent 30.5 g/dl RDW Standard Deviation 64.1 fL RDW Coefficient of Variation 22.1 % Platelet Count 222 K/uL Mean Platelet Volume 8.6 fL Assessment & Plan Symptomatic Anemia due to GI Bleeding has 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 Treated with argon plasma coagulation (APC). Colonoscopy 12/2015 was normal She missed her follow up appointment at [facility] for IR guided ablation of AVM. Will need to schedule for a follow up appt with [facility] at [place] [facility] stable tolerated diet well Recent UTI urine culture on 08/12/16 grew Proteus Mirabilis which is resistant to Cipro / Levaquin completed 7 days course of Rocephin UA was negative Vaginal yeast will do nystatin Diabetes Type II Continue holding metformin Monitor BS closely and cover as per sliding scale. LEFT TOE WOUND Wound care consulted Continue daily wound care will transfer to rehab for wound care today Will follow up with wound clinic upon discharge to rehab Left Hip pain X-Ray is negative for acute abnormality Continue pain med Chronic Systolic CHF Last echo from 01/29/15-LVEF 60-65% with grade 1 diastolic dysfunction and moderate septal L ventricular hypertrophy Continue Carvedilol Stable Chronic Respiratory Failure related to COPD Continue oxygen supplement Continue nebs treatment Stable Hypotension Stable Continue Carvedilol and aldactone continue Monitor BP closely History SAUCEDO/Portal Hypertension/Hepatic Lesions: EGD 03/29/16 and 08/24/16 did not show varices Stable History GERD On protonix BID DVT Prophylaxis SCDs due to GI bleed Code Status FULL CODE DISPOSITION Discharge today to [facility] rehab Consultants: Gastro Current Inpatient Medications: Current Inpatient Medications Medications (Trade) Dose Ordered Sig/Sena Route Start Time Stop Time Status Last Admin Dose Admin Acetaminophen (Tylenol Tab) 650 mg Q4H PRN PO 08/20/16 04:45 09/19/16 04:44 Al Hydrox/Mg Hydrox/Simethicone (Maalox Max Susp) 15 ml Q4H PRN PO 08/20/16 04:45 09/19/16 04:44 Magnesium Hydroxide (Milk Of Magnesia Susp) 30 ml Q12H PRN PO 08/20/16 04:45 09/19/16 04:44 Ondansetron HCl (Zofran Inj) 4 mg Q6H PRN IV 08/20/16 04:45 09/19/16 04:44 08/25/16 18:52 4 MG Insulin Human Regular (novoLIN-R) SLIDING SCALE IF C... ACHS SC 08/20/16 06:45 09/19/16 06:59 08/26/16 13:51 5 UNITS Glucose (Glucose 40% Gel) 15-30 GRAMS 15 GRAMS... UD PRN PO 08/20/16 04:45 09/19/16 04:44 Glucose (Glucose Chew Tab) 4-8 Tablets 4 Tabl... UD PRN PO 08/20/16 04:45 09/19/16 04:44 Dextrose (Dextrose 50% 50ML Syringe) 25-50ML OF 50% DW IV FOR... UD PRN IV 08/20/16 04:45 09/19/16 04:44 Glucagon (Glucagon Inj) 1 mg UD PRN SQ 08/20/16 04:45 09/19/16 04:44 Amitriptyline HCl (Elavil Tab) 50 mg HS PO 08/20/16 21:00 09/19/16 20:59 08/25/16 20:19 50 MG Carvedilol (Coreg Tab) 3.125 mg BIDM PO 08/20/16 07:15 09/19/16 07:59 08/26/16 08:05 3.125 MG Lactobacillus Acidophilus (Lactinex Granules Pack) 1 gm TIDM PO 08/20/16 07:15 09/19/16 07:59 08/23/16 11:47 1 GM Lidocaine (Lidoderm Patch 5%) 1 patch DAILY TD 08/20/16 09:00 09/19/16 08:59 08/26/16 08:05 1 PATCH Multivitamins (Multivitamin Tab) 1 tab DAILY PO 08/20/16 09:00 09/19/16 08:59 08/26/16 08:05 1 TAB Nitroglycerin (Nitrostat Tab) 0.4 mg UD PRN UT 08/20/16 04:45 09/19/16 04:44 Oxycodone HCl (Oxycontin Tab) 20 mg Q12 PRN PO 08/20/16 04:45 09/03/16 04:44 08/26/16 08:03 20 MG Oxycodone HCl (Roxicodone Immediate Rel Tab) 5 mg Q6H PRN PO 08/20/16 04:45 09/03/16 04:44 08/26/16 13:51 5 MG Spironolactone (Aldactone Tab) 50 mg DAILY PO 08/20/16 09:00 09/19/16 08:59 08/26/16 08:05 50 MG Albuterol (Ventolin Hfa Inhaler) 2 puffs QID PRN INH 08/20/16 04:45 09/19/16 04:44 08/24/16 10:08 2 PUFFS Miscellaneous (Remove Lidoderm Patch) 1 ea DAILY@21 N/A 08/20/16 21:00 09/19/16 20:59 08/25/16 20:20 1 EA Albuterol/ Ipratropium (Duoneb) 3 ml Q4R PRN INH 08/20/16 04:45 09/19/16 04:44 08/26/16 10:27 3 ML Lorazepam (Ativan Tab) 0.5 mg Q8 PRN PO 08/20/16 14:00 09/19/16 13:59 08/26/16 13:51 0.5 MG Multi-Ingredient Ointment (Eucerin Unscented Cr) 1 appln PRN PRN EXT 08/22/16 00:45 09/21/16 00:44 08/22/16 05:03 1 APPLN Pantoprazole Sodium (Protonix Tab) 40 mg BID PO 08/22/16 21:00 09/21/16 20:59 08/26/16 08:04 40 MG Polyethylene (Miralax Powder Packet) 17 gm DAILY PO 08/24/16 08:00 09/23/16 08:59 08/26/16 08:05 17 GM Ondansetron HCl 4 mg 4 mg Q6H PRN IV 08/25/16 02:45 09/24/16 02:44 Promethazine HCl/ Sodium Chloride (Phenergan Inj/ Nss 50ml) 50.5 ml @ 204 mls/hr Q6H PRN IV 08/25/16 02:45 09/24/16 02:44 08/25/16 04:34 204 MLS/HR Metoclopramide HCl (Reglan Tab) 5 mg Q8 PRN PO 08/25/16 19:15 09/24/16 19:14 08/26/16 07:59 5 MG
--- NOTE | 2016-08-26 15:22 | Discharge Instructions ---
Discharge Instructions Admission Reason for Admission: Anemia Discharge Discharge Diagnosis / Problem: Symptomatic anemia, Recent UTI, Diabetes type 2 , Left wound toe, hypotensio Discharge Goals Goal(s): Decrease discomfort, Improve function, Improve disease control Activity Recommendations Activity Limitations: resume your previous activity (as tolerated) . Instructions / Follow-Up Instructions / Follow-Up Discharge to [facility] for rehab Please schedule follow up appointment with your primary care physician once you discharge from rehab Follow up with gastro once you discharge from rehab Continue monitor hemoglobin Follow up with wound care once you discharge from [facility] Current Hospital Diet Patient's current hospital diet: Low Sodium Diet (2gm Na), Diabetes Type 2 Diet Discharge Diet Recommended Diet: Diabetes Type 2 Diet Procedures Procedures Performed: EGD Pending Studies Studies pending at discharge: no Laboratory Results Hemoglobin A1c Test 08/21/16 05:45 Range/Units Estimated Average Glucose 114 mg/dl Hemoglobin A1c 5.6 4.5-5.6 % Medical Emergencies . Who to Call and When: Medical Emergencies: If at any time you feel your situation is an emergency, please call 911 immediately. . Non-Emergent Contact Non-Emergency issues call your: Primary Care Provider Call Non-Emergent contact if: you have a fever, you have any medication questions . . "Provider Documentation" section prepared by Fredo Venegas. VTE Core Measure Inpt VTE Proph given/why not?: Angel Luis Mix, SCD's
[2016-08-26] MEDS ORDERED: CLBPO15 TOP ×2 (15:25→15:29)
[2016-08-26] MEDS ORDERED: NYSTPOW2 TOP (15:36)
--- NOTE | 2016-08-27 15:37 | CONSULTATION REPORT ---
DATE OF CONSULTATION: 08/25/2016 CHIEF COMPLAINT: Nonhealing ulceration to the left great toe. HISTORY OF PRESENT ILLNESS: The patient states that she has had problems with ulcerations and callus formation on this toe for the past few years. The patient states that it intermittently opens and drains and is currently doing the same. The patient denies any trauma to this area. The patient was recently admitted to [facility] for management of severe anemia and probable upper GI bleed. The patient currently today denies any chest pain, shortness of breath, abdominal discomfort, nausea or vomiting. The patient denies any other systemic complaints. PAST MEDICAL HISTORY: Positive for cirrhosis, COPD, diabetes, GERD, hypertension, and portal hypertension. PAST SURGICAL HISTORY: Positive for hysterectomy and tonsillectomy. MEDICATIONS: Noted in the nursing notes were reviewed. ALLERGIES: TO CEPHALEXIN, IODINATED DIAGNOSTIC AGENTS, PENICILLINS AND SULFA. REVIEW OF SYSTEMS: Ten systems were reviewed in their entirety and positive findings were noted in the chief complaint and history of present illness. PHYSICAL EXAMINATION: GENERAL: The patient is currently lying in hospital bed, in no acute distress, alert and cooperative throughout the examination. VITAL SIGNS: Also reviewed and found to be unremarkable. The patient is afebrile. HEENT: Pupils equal and reactive to light. Sclerae clear. NECK: Supple. CHEST: Heart and lungs clear to auscultation. EXTREMITIES: Reveals the presence of a callus formation and ulceration on the plantar surface of the left great toe. This measures 1 x 0.8 x 1 cm. There is no active drainage. There is no periwound erythema noted from the site. Pulses are intact and present. There is significant peripheral edema bilaterally. NEUROLOGICAL: The patient is alert and oriented x3. No apparent focal deficits noted. IMPRESSION: Wilkerson grade 2, left great toe. PLAN: At this time, the site did require debridement. With the patient's permission and after the application of topical Xylocaine 4%, this site was debrided with a #5 curette. Surrounding callus, central slough and some subcutaneous tissue as well as some surrounding skin was removed. Bleeding did occur and was controlled with direct pressure. The site will be dressed with Aquacel AG and gauze, changed daily. The patient will be placed on a Darco shoe for any weightbearing events. The patient is instructed the need for long-term care, but in the past has refused any outpatient evaluation. The patient is welcome to be reevaluated by the wound clinic upon discharge and ongoing management. This represented an excisional debridement of less than 20 square cm.
--- NOTE | 2016-08-29 20:24 | Discharge Summary ---
Discharge Summary Admission Date: Aug 20, 2016 at 04:33 Discharge Date: Aug 26, 2016 Discharge Disposition: Rehab Principal Diagnosis: Anemia Secondary Diagnoses/Problems: Symptomatic anemia Recent UTI Diabetes type 2 Left wound toe Hypotension Chronic Respiratory failure COPD Procedures: EGD with argon plasma coagulation (APC). Consultations: Gastro Medication Reconciliation New Medications: Clobetasol Propionate (Clobetasol Propionate) 45 Appln/15 Gm Oint 1 APPLN TOP BID for 15 Days, #30 GM 0 Refills do not apply to face Nystatin (Mycostatin) Pow [id number] UNIT TOP BID for 7 Days Continued Medications: Albuterol Sulf (Albuterol Sulfate) 2.5 Mg/3 Ml Nebu 1 VIAL NEB QID PRN for SOB/Wheezing Albuterol Sulfate (Proair Respiclick) 108 Mcg/Act Aer 2 PUFFS INH QID PRN for wheezing Amitriptyline Hcl (Elavil) 50 Mg Tab 50 MG PO HS, TAB Carvedilol (Coreg) 3.125 Mg Tab 3.125 MG PO BIDM, TAB Cholecalciferol (Vitamin D3) 1,000 Unit Tab 1000 UNITS PO DAILY, 3 Refills Ferrous Sulfate (Ferrous Sulfate) 325 Mg Tab 325 MG PO DAILY Furosemide (Lasix) 40 Mg Tab 40 MG PO DAILY, TAB Hydrocortisone 1% (Hydrocortisone 1%) 90 Appln/30 Gm Cr 1 APPLN TOP BID PRN for Itching apply to bilateral legs Insulin Isophan/Regular (Novolin 70/30) Susp 52 UNITS SC QPM, BTL Insulin Isophan/Regular (Novolin 70/30) Susp 50 UNITS SC QAM, BTL Lactobacillus Acidophilus (Lactinex Granules) 1 Gm Pkt 1 GM PO TIDM Lidocaine (Lidocaine) 1 Patch Tdsy 1 PATCH EXT DAILY Lorazepam (Ativan) 1 Mg Tab 1 MG PO q12 hours, TAB Metformin Hcl (Glucophage) 1,000 Mg Tab 1000 MG PO BIDM, 5 Refills Multiple Vitamin (Multivitamin) 1 Tab Tab 1 TAB PO DAILY, TAB Nitroglycerin (Nitrostat) 0.4 Mg Sub 0.4 MG UT UD PRN for Chest Pain PLACE ONE TABLET UNDER THE TONGUE EVERY 5 MINUTES FOR UP TO 3 DOSES IF NEEDED FOR CHEST PAIN. Oxycodone Hcl (Oxycontin) 20 Mg Tab 20 MG PO Q12 PRN for Pain, TAB Oxycodone Ir (Roxicodone Ir) 5 Mg Tab 5 MG PO Q6H PRN for Pain, TAB Oxygen (Oxygen) Gas 2 LITERS NA continuous Pantoprazole (Protonix) 40 Mg Tab 40 MG PO DAILY, #30 TAB Potassium Chloride (Potassium Chloride Er) 10 Meq Tab 20 MEQ PO TIDM Spironolactone (Aldactone) 50 Mg Tab 50 MG PO DAILY, TAB Discontinued Medications: Doxycycline (Monohydrate) (Doxycycline) 100 Mg Cap 100 MG PO BID for 5 Days, #10 Admission Information HPI (per Admitting provider): This is a 66 yo F with complex past medical hx of Cirrhosis secondary to SAUCEDO , type 2 DM , severe COPD on home 02 , chronic anemia /recurrent upper GI bleed - GAVE , GERD presented to ED with complain of severe fatigue , SOB , generalized weakness pt has chronic melanotic /dark stool -due to Fe supplement pt was recently admitted to [facility] with similar complain ; Hb was 5.5 required multiple PRBC transfusion Last EDG 03/26/16 : showed bleeding vascular ectasia in gastric antrum GI eval was requested , repeat EGD was not offered pt was recommended to follow up in [place] for IR guided ablation in 4-6 weeks appointment in [place] was scheduled for 07/27/16 , could not keep it due to lack of transportation presents to ED with complain of progressive weakness, SOB , MALDONADO , fatigue has chronic dark stool , no report of bright red blood per rectum , no hematemesis HB ~4 pt is a very poor Historian , mentions that last 1 weeks has been experiencing worsening SOB , dyspnea with minimum exertion missed Hospital follow up appointment due to generalized weakness -requested wheel chair script from Dr Decker , which she did not picked up pt denies of taking any Aspirin or NSAID's Physical Exam (per Admitting): General Appearance: no apparent distress, + pertinent finding (very tired and weak ) Eyes: sclerae normal Neck: thyroid normal, no carotid bruits, trachea midline Respiratory/Chest: chest non-tender, lungs clear, normal breath sounds, no respiratory distress Cardiovascular: regular rate, rhythm Abdomen/GI: normal bowel sounds, non tender, soft Extremities/Musculoskelatal: normal inspection, no pedal edema Neurologic/Psych: no motor/sensory deficits, + pertinent finding (very tired , lethergic ) Hospital Course Symptomatic Anemia due to GI Bleeding has 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 Treated with argon plasma coagulation (APC). Colonoscopy 12/2015 was normal She missed her follow up appointment at [facility] for IR guided ablation of AVM. Will need to schedule for a follow up appt with [facility] at [place] [facility] stable tolerated diet well Recent UTI urine culture on 08/12/16 grew Proteus Mirabilis which is resistant to Cipro / Levaquin completed 7 days course of Rocephin UA was negative Vaginal yeast will do nystatin Diabetes Type II Continue holding metformin Monitor BS closely and cover as per sliding scale. LEFT TOE WOUND Wound care consulted Continue daily wound care will transfer to rehab for wound care today Will follow up with wound clinic upon discharge to rehab Left Hip pain X-Ray is negative for acute abnormality Continue pain med Chronic Systolic CHF Last echo from 01/29/15-LVEF 60-65% with grade 1 diastolic dysfunction and moderate septal L ventricular hypertrophy Continue Carvedilol Stable Chronic Respiratory Failure related to COPD Continue oxygen supplement Continue nebs treatment Stable Hypotension Stable Continue Carvedilol and aldactone continue Monitor BP closely History SAUCEDO/Portal Hypertension/Hepatic Lesions: EGD 03/29/16 and 08/24/16 did not show varices Stable History GERD On protonix BID DVT Prophylaxis SCDs due to GI bleed Code Status FULL CODE DISPOSITION Discharge today to [facility] rehab Total time spent on discharge = 35 minutes This includes examination of the patient, discharge planning, medication reconciliation, and communication with other providers. Discharge Instructions Discharge Instructions Admission Reason for Admission: Anemia Discharge Discharge Diagnosis / Problem: Symptomatic anemia, Recent UTI, Diabetes type 2 , Left wound toe, hypotensio Discharge Goals Goal(s): Decrease discomfort, Improve function, Improve disease control Activity Recommendations Activity Limitations: resume your previous activity (as tolerated) . Instructions / Follow-Up Instructions / Follow-Up Discharge to [facility] for rehab Please schedule follow up appointment with your primary care physician once you discharge from rehab Follow up with gastro once you discharge from rehab Continue monitor hemoglobin Follow up with wound care once you discharge from [facility] Current Hospital Diet Patient's current hospital diet: Low Sodium Diet (2gm Na), Diabetes Type 2 Diet Discharge Diet Recommended Diet: Diabetes Type 2 Diet Procedures Procedures Performed: EGD Pending Studies Studies pending at discharge: no Laboratory Results Hemoglobin A1c Test 08/21/16 05:45 Range/Units Estimated Average Glucose 114 mg/dl Hemoglobin A1c 5.6 4.5-5.6 % Medical Emergencies . Who to Call and When: Medical Emergencies: If at any time you feel your situation is an emergency, please call 911 immediately. . Non-Emergent Contact Non-Emergency issues call your: Primary Care Provider Call Non-Emergent contact if: you have a fever, you have any medication questions . . "Provider Documentation" section prepared by Fredo Venegas. VTE Core Measure Inpt VTE Proph given/why not?: Angel Luis Mix, BEATRICE's Additional Copies To Dennis Decker M.D.
[2016-09-28] MEDS ORDERED: CLC/300 PO (14:04)
== END 2016-08-26 17:36 | DRG 982 ==
LOC: ENRESERVDT → ENRESERVTM → EDBD 03:17 → C.EDB 03:20 → C.MSICU 04:33 → C.2T 08-21 14:51 → C.4E 08-23 18:06
PROVIDERS: ADMIT Hospitalist; ATTEND Internal Medicine
PROC: 0DJ08ZZ Inspection of Upper Intestinal Tract, Via Natural or Artificial Opening Endoscopic (ICD-10-PCS; principal; 2016-08-24 10:34)
PROC: 0JDR0ZZ Extraction of Left Foot Subcutaneous Tissue and Fascia, Open Approach (ICD-10-PCS; 2016-08-25)
DX: K31.811 Angiodysplasia of stomach and duodenum with bleeding (principal); K76.6 Portal hypertension; Z68.43 Body mass index [BMI] 50.0-59.9, adult; I50.42 Chronic combined systolic (congestive) and diastolic (congestive) heart failure; E87.1 Hypo-osmolality and hyponatremia; J96.10 Chronic respiratory failure, unspecified whether with hypoxia or hypercapnia; D62 Acute posthemorrhagic anemia; D64.9 Anemia, unspecified; K21.9 Gastro-esophageal reflux disease without esophagitis; K75.81 Nonalcoholic steatohepatitis (NASH); Z99.81 Dependence on supplemental oxygen; Z86.010 Personal history of colon polyps; R91.8 Other nonspecific abnormal finding of lung field; K74.60 Unspecified cirrhosis of liver; Z90.710 Acquired absence of both cervix and uterus; Z83.3 Family history of diabetes mellitus; Z82.49 Family history of ischemic heart disease and other diseases of the circulatory system; Z80.8 Family history of malignant neoplasm of other organs or systems; Z87.891 Personal history of nicotine dependence; Z88.8 Allergy status to other drugs, medicaments and biological substances; Z88.0 Allergy status to penicillin; Z88.2 Allergy status to sulfonamides; Z91.041 Radiographic dye allergy status; Z79.899 Other long term (current) drug therapy; Z79.4 Long term (current) use of insulin; R35.0 Frequency of micturition; I95.9 Hypotension, unspecified; E66.9 Obesity, unspecified; Z87.440 Personal history of urinary (tract) infections; M25.552 Pain in left hip; E11.621 Type 2 diabetes mellitus with foot ulcer; L97.529 Non-pressure chronic ulcer of other part of left foot with unspecified severity; J44.9 Chronic obstructive pulmonary disease, unspecified; I10 Essential (primary) hypertension

== ENCOUNTER 2016-10-11 15:50 | Inpatient (IN) | payer OTHER ==
[~2016-10-11] VITALS: Ht 152.4 cm; Wt 116.1 kg
[2016-10-11 15:45] VITALS: BP 127/65; PULSE 96; TEMP 37.2; O2SAT 96
[~2016-10-11 15:50] MED LIST changes: +ALBU18002 INH; -ALBU1AER9 INH; -AMT25 PO; +AMT50 PO; -B-CO-34 PO; -CHOL1000 PO; +CLC/300 PO; -DOXY-300 PO; +LACT1GRA PO; -LCTL45 PO; -LCTXP PO; -LDDP5 EXT; -METF1000 PO; -POLY335019 PO; -PSYL55.43 PO; +SPIR50TA2 PO; -SPR25 PO
[2016-10-11] MEDS ORDERED: ACETAMINOPHEN 325 MG TAB PO PRN (17:45)
[2016-10-11] MEDS ORDERED: ONDANSETRON INJ 2 MG/ML 2 ML VIAL IV PRN (17:45)
[2016-10-11] MEDS ORDERED: NF656 TD (17:52)
[2016-10-11] MEDS ORDERED: CONSULT PHARMACY STA (17:52)
[2016-10-11 17:53] LABS: BASO % 0.6 %; BASO ABS # 0.05 K/uL (0-0.2); COMPLETE YES; EOS % 11.1 %; HEMATOCRIT 30.2 % (37-47); IG% 0.3 %; LYMPH % 16.5 %; LYMPH ABS # 1.28 K/uL (1.2-3.4); MEAN CELL VOLUME 82.7 fL (80-100); MEAN CORPUSCULAR HEMOGLOBIN 28.2 pg (25-34); MEAN CORPUSCULAR HGB CONC 34.1 g/dl (32-36); MEAN PLATELET VOLUME 8.6 fL (7.4-10.4); MONO % 10.8 %; NEUT % 60.7 %; PLATELET COUNT 199 K/uL (130-400); RED BLOOD COUNT 3.65 M/uL (4.2-5.4); WHITE BLOOD COUNT 7.77 K/uL (4.8-10.8)
[2016-10-11] MEDS ORDERED: ALBUTEROL 0.083% NEBU SOLN 3 ML VIAL INH PRN (18:00)
[2016-10-11] MEDS ORDERED: GLUCOSE 40% GEL 15 GM TUBE PO PRN (18:00)
[2016-10-11] MEDS ORDERED: GLUCOSE 10 TABS/TUBE PO PRN (18:00)
[2016-10-11] MEDS ORDERED: DEXTROSE 50% 50 ML SYR IV PRN (18:00)
[2016-10-11] MEDS ORDERED: GLUCAGON FOR INJ 1 MG VIAL SQ PRN (18:00)
[2016-10-11] MEDS ORDERED: DAPTOMYCIN CONSULT ACTIVE PRN ×2 (18:00)
[2016-10-11] MEDS ORDERED: NITROGLYCERIN 0.4 MG SL PER TAB CHARGE UT PRN (18:00)
--- NOTE | 2016-10-11 18:21 | History and Physical ---
History & Physical Date & Time of Service: Oct 11, 2016 at 18:00 Chief Complaint: Left Lower Extremity Cellulitis Primary Care Physician: Dennis Decker M.D. History of Present Illness Source: patient, clinic records, hospital records Patient seen and examined. 66 year old female with PMHx of IDDM, COPD, SAUCEDO cirrhosis, GAVE, frequent GI bleeds, systolic CHF and other problems listed below is seen in as a direct admission for worsening cellulitis, and left toe ulcer. Patient has been following with Dr. Musa at the wound clinic and Dr. Brenden MAYO. Patient reports she has had a left toe diabetic ulcer for about six months over the last few weeks she has developed cellulitis in the last few weeks. She has been treated with clindamycin as an outpatient but felt like she wasn't getting better. She states she has chills and feels unwell. She followed up with wound care today and they recommended direct admission for IV antibiotics. Patient also believes she has a UTI as she reports occasional "leakage." She denies fevers, URI symptoms, chest pain, SOB, nausea, vomiting, diarrhea, dysuria. Admission labs are pending she will be admitted for further workup and treatment. Past Medical/Surgical History Medical Problems: (1) Cirrhosis of liver Status: Chronic (2) COPD (chronic obstructive pulmonary disease) Permanent Comment: severe Status: Chronic (3) Diabetes mellitus, type II Status: Chronic (4) GERD (gastroesophageal reflux disease) Status: Chronic (5) Hepatic lesion Status: Chronic (6) History of adenomatous polyp of colon Status: Chronic (7) HTN (hypertension) Status: Chronic (8) Portal hypertension Status: Chronic (9) Pulmonary nodules Status: Chronic Surgical Problems: (1) Status post hysterectomy Status: Chronic (2) Status post tonsillectomy Status: Chronic Family History Cancer FATHER Diabetes mellitus FATHER Heart disease FATHER Pancreatic cancer GRANDMOTHER Social History Smoking Status: Former Smoker Alcohol Use: none Drug Use: none Marital Status: Housing status: lives alone Occupational Status: disabled Immunizations History of Influenza Vaccine: Yes Influenza Vaccine Date: Mar 12, 2014 History of Pneumococcal: Yes Pneumococcal Date: Apr 01, 2014 Multi-Drug Resistant Organisms History of MDRO: No Allergies Coded Allergies: Cephalexin (Verified Allergy, Intermediate, HIVES, 08/20/16) Iodinated Diagnostic Agents (Verified Allergy, Intermediate, RASH, 08/20/16 ) Penicillins (Verified Allergy, Intermediate, HIVES, 08/20/16) Sulfa Antibiotics (Verified Allergy, Unknown, UNKNOWN, 08/20/16) Home Medications Scheduled Amitriptyline Hcl (Elavil), 50 MG PO HS Carvedilol (Coreg), 3.125 MG PO BIDM Ferrous Sulfate (Ferrous Sulfate), 325 MG PO DAILY Furosemide (Lasix), 40 MG PO DAILY Insulin Isophan/Regular (Novolin 70/30), 60 UNITS SC QPM Insulin Isophan/Regular (Novolin 70/30), 50 UNITS SC QAM Lactobacillus Acidophilus (Lactinex Granules), 1 GM PO TIDM Lidocaine (Lidoderm Patch 5%), 1 PATCH TD DAILY Lorazepam (Ativan), 1 MG PO q12 hours Oxycodone Hcl (Oxycontin), 20 MG PO Q12 Oxygen (Oxygen), 2 LITERS NA continuous Pantoprazole (Protonix), 40 MG PO DAILY Potassium Chloride (Potassium Chloride Er), 20 MEQ PO TIDM Spironolactone (Aldactone), 50 MG PO DAILY Scheduled PRN Albuterol Sulf (Albuterol Sulfate), 1 VIAL NEB QID PRN for SOB/Wheezing Albuterol Sulfate (Proair Respiclick), 2 PUFFS INH QID PRN for wheezing Hydrocortisone 1% (Hydrocortisone 1%), 1 APPLN TOP BID PRN for Itching Nitroglycerin (Nitrostat), 0.4 MG UT UD PRN for Chest Pain Oxycodone Ir (Roxicodone Ir), 5 MG PO Q6H PRN for Pain Review of Systems See above for pertinent positives & negatives. A total of 10 systems reviewed and were otherwise negative. Physical Exam Vital Signs Date Time Temp Pulse Resp B/P Pulse Ox O2 Delivery O2 Flow Rate FiO2 10/11/16 15:45 37.2 96 18 127/65 96 Room Air General Appearance: + pertinent finding (Pleasant WD/WN 66 year old female lying in bed in NAD ) Head: normocephalic, atraumatic Eyes: PERRL, EOMI, sclerae normal ENT: hearing grossly normal, pharynx normal Neck: supple, no JVD Respiratory/Chest: chest non-tender, lungs clear, normal breath sounds, no respiratory distress, no accessory muscle use Cardiovascular: regular rate, rhythm, no gallop, no JVD, no murmur, normal peripheral pulses Abdomen/GI: normal bowel sounds, non tender, soft Back: normal inspection, no muscle spasm Extremities/Musculoskelatal: normal capillary refill, + calf tenderness, + pertinent finding (chronic lymphedema changes, erythema to BLLE with some skin tears, left great toe ulcer with surrounding erythema ) Neurologic/Psych: no motor/sensory deficits, alert, oriented x 3 Skin: normal color, warm/dry, no rash Lymphatic: no adenopathy Diagnostics Laboratory Results Results Past 24 Hours Test 10/11/16 17:10 10/11/16 17:35 Range/Units Bedside Glucose 189 70-90 mg/dl White Blood Count 7.77 4.8-10.8 K/uL Red Blood Count 3.65 4.2-5.4 M/uL Hemoglobin 10.3 12.0-16.0 g/dL Hematocrit 30.2 37-47 % Mean Corpuscular Volume 82.7 80-100 fL Mean Corpuscular Hemoglobin 28.2 25-34 pg Mean Corpuscular Hemoglobin Concent 34.1 32-36 g/dl Platelet Count 199 130-400 K/uL Mean Platelet Volume 8.6 7.4-10.4 fL Neutrophils (%) (Auto) 60.7 % Lymphocytes (%) (Auto) 16.5 % Monocytes (%) (Auto) 10.8 % Eosinophils (%) (Auto) 11.1 % Basophils (%) (Auto) 0.6 % Neutrophils # (Auto) 4.72 1.4-6.5 K/uL Lymphocytes # (Auto) 1.28 1.2-3.4 K/uL Monocytes # (Auto) 0.84 0.11-0.59 K/uL Eosinophils # (Auto) 0.86 0-0.5 K/uL Basophils # (Auto) 0.05 0-0.2 K/uL RDW Standard Deviation 58.8 36.4-46.3 fL RDW Coefficient of Variation 19.2 11.5-14.5 % Immature Granulocyte % (Auto) 0.3 % Immature Granulocyte # (Auto) 0.02 0.00-0.02 K/uL Microbiology Results 10/11/16 Blood Culture, Received Pending 10/11/16 Blood Culture, Received Pending Impression Assessment and Plan 66 year old female presents as a direct admission from wound care for worsening cellulitis BILATERAL LOWER EXTREMITY CELLULITIS WITH LEFT GREAT TOE ULCERATION -Admit to med/surg -no leukocytosis, afebrile -Last wound cultures with E. faecalis -Blood cultures, wound cultures pending -R/O DVT with Doppler US -empirically treat with Daptomycin per ID recommendation, pharmacy consulted for dosing -Infectious disease consult placed -Wound care physician and nurse consults placed -CBC, PRP, Mg in AM -continue outpatient pain regimen -additional management pending admission workup IDDM -update A1c -SSI coverage -pharmacy consulted for glycemic control -BSG AC HS -consistent carb diet COPD -reports her oxygen is prn -stable -continue home inhalers SAUCEDO CIRRHOSIS -check LFTs H/O multiple GI BLEEDS/GAVE -avoid anticoagulation/antiplatelets -continue iron supplement -Hgb stable, monitor daily GERD -continue Protonix SYSTOLIC CHF -appears euvolemic -continue Lasix -continue BB DVT PROPHYLAXIS: none until doppler US is negative CODE STATUS: FULL CODE DISPO:In my clinical judgment this beneficiary meets acute admission criteria, established by [facility], that includes being hospitalized through two midnights. Patient seen in collaboration with Dr. Lee ATTENDING ADDENDUM care coordinated with DUNG Gutierrez please refer to her notes for full details, I agree with her notes patient seen and examined, records reviewed by myself as well on exam, patient seen resting in bed, comfortable denies dyspnea, chest pain no leg pain no other symptoms VS noted and reviewed oriented x 3 , not in distress, speaks in sentences with no effort nor accessory muscle use normal rate, regular rhythm, no murmurs clear breath sounds bilaterally grade 2 lower leg edema, erythema; (+) ulcer on the right great toe, scant yellow discharge no neuro deficits WBC 10.3 Hg 7.7 ASSESSMENT/PLAN> RIGHT TOE ULCER, CELLULITIS no improvement with PO Doxycycline ff up cultures ID consulted DM 2 ISS COPD stable other diagnoses and plan of care as per DUNG Gutierrez's notes Raúl Lee MD VTE Prophylaxis VTE Risk Assessment Done? Y/N: Yes Risk Level: Moderate
[2016-10-11 18:27] VITALS: BP 127/65; PULSE 96; TEMP 37.2; O2SAT 96; Ht 152.4 cm; Wt 116.1 kg
[2016-10-11] MEDS ORDERED: PATIENT'S HEIGHT AND/OR WEIGHT NEEDED SCH (18:30)
[2016-10-11 18:32] LABS: ALT/SGPT 12 U/L (12-78); AST/SGOT 24 U/L (15-37); BLOOD UREA NITROGEN 6 mg/dl (7-18); BUN/CREATININE RATIO 8.9 (10-20); CALCIUM 8.6 mg/dl (8.5-10.1); CARBON DIOXIDE 29 mmol/L (21-32); CHLORIDE 95 mmol/L (98-107); CREATININE 0.72 mg/dl (0.60-1.20); GLUCOSE 205 mg/dl (70-99); MAGNESIUM 1.5 mg/dl (1.8-2.4); POTASSIUM 4.1 mmol/L (3.5-5.1); SODIUM 131 mmol/L (136-145)
[2016-10-11 18:35] LABS: ALB/GLOB RATIO 0.7 (0.9-2); ALKALINE PHOSPHATASE 95 U/L (45-117)
[2016-10-11] MEDS: OXYCODONE HCL IR 5 MG TAB (IMMEDIATE RELEASE) PO PRN (18:56)
[2016-10-11] MEDS ORDERED: PHARMACY GLYCEMIC MGMT CONSULT PRN (19:09)
--- NOTE | 2016-10-11 19:43 | Pharmacy Progress Note ---
Glycemic Control Intl Consult Date of Service Oct 11, 2016. Scope Glycemic Pharmacist consulted by Mariah Gutierrez PA-C on 10/11/16 for glycemic control and to write orders per [facility] inpatient glycemic control protocol Objective Weight (Kilograms): 116.100 Accuchecks BSG (last 24hrs): Test 10/11/16 17:10 10/11/16 17:35 Bedside Glucose 189 mg/dl (70-90) Random Glucose 205 mg/dl (70-99) Laboratory Data (last 24hrs) HbA1c Item Value Date Time Hemoglobin A1c 5.6 % 08/21/16 0545 This result may not be totally reliable as patient received blood transfusions 08/20/16 & 08/21/16 Recent Pertinent Medications Outpatient Anti-diabetic Regimen: * Novolin 70/30 premixed insulin 50 units with AM meal + 60 units with PM meal The patient is currently receiving: * Basal insulin: None ordered * Correctional Insulin: Novolog Correction per scale ACHS Goal Range: Low 100 mg/dL - High 140 mg/dL Correction Factor: 30 mg/dL/unit * Prandial insulin: Per carb ratio of 1 unit per 15 grams CHO consumed Risk Factors for Insulin Resistance: * Infection * Diet Assessment & Plan ASSESSMENT: * 66yo T2DM female known to pharmacy from previous admissions/glycemic consults * Outpatient regimen is premixed basal/prandial insulin of Novolin 70/30 mix insulin. * Pre-mixed insulin is difficult to titrate since it is already in a fixed distribution of basal:prandial insulin. Continuing pre-mixed insulin for admission typically lead to hypoglycemia d/t changing PO status but rapid acting insulin is unable to be held. * Home regimen will be held for admission per pharmacy consult. Will utilize recommended regimen of SQ basal bolus insulin regimen with Lantus + NovoLog (CF+ CR) * Will continue dosing similar to previous admissions data and consistent with weight/stress based dosing * ADA & AACE recommend a goal blood sugar range 140-180 mg/dl for the majority of critically ill & non-critically ill patients. However, more stringent targets may be selected in individual cases. Will utilize more stringent goal of 110-140mg/dl based on patient age & comorbidities. Additionally, tighter glycemic control is warranted to facilitate wound/infection healing. PLAN FOR INPATIENT GLYCEMIC CONTROL: * Hold outpatient pre-mixed insulin regimen --> may continue at discharge. * Basal insulin with LANTUS 20 units SQ BID * NOVOLOG per scale ACHS or Q6hrs while NPO * Goal Range: Low 110 mg/dL - High 140 mg/dL * Correction Factor: 20 mg/dL/unit * Nutritional / Prandial insulin per carb ratio of 1 unit per 7 grams CHO consumed * Please note that the plan above was derived based on current level of insulin resistance and hospital stress. These recommendations are appropriate for inpatient admission only. Plan of care upon discharge will need to be reassessed to avoid potential outpatient hypo/hyperglycemia. Thank you.
[2016-10-11] MEDS: SODIUM CHLORIDE 0.9% IV SCH (20:40)
[2016-10-11] MEDS: DAPTOMYCIN IV SCH (20:40)
[2016-10-11] MEDS: OXYCODONE HCL 20 MG TABCR (OXYCONTIN) PO SCH (20:47)
[2016-10-11] MEDS: AMITRIPTYLINE HCL 50 MG TAB PO SCH (20:47)
[2016-10-11] MEDS: LORAZEPAM 1 MG TAB PO SCH (20:48)
[2016-10-11] MEDS ORDERED: MAGNESIUM SULFATE 1GM / D5W 1 GM in PREMIXED IN D5W 100 ML IV ONE (21:00)
[2016-10-11] MEDS: INSULIN GLARGINE SOLOSTAR 100 UNITS/ML 3 ML PEN SC SCH (21:56)
[2016-10-11] MEDS: INSULIN ASPART 100 UNITS/ML 3 ML PEN SC SCH (21:57)
[2016-10-11 22:37] LABS: MANUAL MICROSCOPIC REQUIRED? NO; REVIEW REQ? NO; URINE APPEARANCE CLEAR (CLEAR); URINE BILIRUBIN NEG (NEG); URINE COLOR YELLOW; URINE EPITHELIAL CELL AUTO >30 /lpf (0-5); URINE NITRITE NEG (NEG); URINE SPECIFIC GRAVITY 1.008 (1.000-1.030); UROBILINOGEN NEG (NEG); ZZUR CULT IF INDIC CLEAN CATCH NO
[2016-10-12 00:18] VITALS: BP 75/45; PULSE 110; TEMP 37; O2SAT 95
[2016-10-12 01:00] VITALS: O2SAT 95
[2016-10-12 07:28] LABS: MEAN CELL VOLUME 82.9 fL (80-100); MEAN CORPUSCULAR HEMOGLOBIN 28.3 pg (25-34); MEAN CORPUSCULAR HGB CONC 34.1 g/dl (32-36); MEAN PLATELET VOLUME 8.5 fL (7.4-10.4); PLATELET COUNT 183 K/uL (130-400); WHITE BLOOD COUNT 6.31 K/uL (4.8-10.8)
[2016-10-12] MEDS: OXYCODONE HCL 20 MG TABCR (OXYCONTIN) PO SCH ×2 (07:40→20:42)
[2016-10-12 07:41] VITALS: BP 101/63; PULSE 76; TEMP 36.9; O2SAT 94
[2016-10-12 07:51] LABS: BUN/CREATININE RATIO 9.5 (10-20); CREATININE 0.62 mg/dl (0.60-1.20); MAGNESIUM 1.6 mg/dl (1.8-2.4)
[2016-10-12 08:17] LABS: ESTIMATED AVERAGE GLUCOSE 126 mg/dl; HA1C FLAG Normal (Normal)
--- NOTE | 2016-10-12 08:28 | DIAGNOSTIC IMAGING REPORT ---
ULTRASOUND VENOUS DOPPLER LWR EXT BILA CLINICAL HISTORY: Leg pain COMPARISON STUDY: 06/18/2016 FINDINGS: Real-time and color flow Doppler imaging were performed. Flow was seen within the femoral, popliteal and calf veins with no intraluminal thrombus demonstrated. The saphenous vein is patent. IMPRESSION: No evidence of lower extremity DVT. Electronically signed by: Jeff Canas M.D. 10/12/2016 8:27 AM Dictated Date/Time: 10/12/2016 8:22 AM
[2016-10-12] MEDS: LORAZEPAM 1 MG TAB PO SCH ×2 (08:32→20:43)
[2016-10-12] MEDS: LIDODERM (LIDOCAINE) PATCH 5% TD SCH (08:33)
[2016-10-12] MEDS: LACTOBACILLUS ACIDOPHILUS 1 GM PACK PO SCH ×3 (08:33→17:30)
[2016-10-12] MEDS: CARVEDILOL 3.125 MG TAB PO SCH ×2 (08:34→17:33)
[2016-10-12] MEDS: PANTOprazole SOD 40 MG TAB PO SCH (08:34)
[2016-10-12] MEDS: SPIRONOLACTONE 100 MG TAB PO SCH (08:34)
[2016-10-12] MEDS: FUROSEMIDE 40 MG TAB PO SCH (08:34)
[2016-10-12] MEDS: FERROUS SULFATE 325 MG TAB PO SCH (08:34)
[2016-10-12] MEDS: INSULIN ASPART 100 UNITS/ML 3 ML PEN SC SCH ×4 (08:43→20:44)
[2016-10-12] MEDS: INSULIN GLARGINE SOLOSTAR 100 UNITS/ML 3 ML PEN SC SCH ×2 (08:43→20:45)
--- NOTE | 2016-10-12 09:18 | Progress Note ---
Progress Note Date of Service Oct 12, 2016. Progress Note ID Consult Dictated #[id number] A/P: 1. Toe ulcer, enterococcus, with cellulitis -Continue dapto, follow cultures -Pt was to have MRI toe as outpt to r/o osteo, could be done while inpatient -Check crp/esr -Will follow, thank you
--- NOTE | 2016-10-12 09:38 | Clinical Documentation Query ---
CLINICAL DOCUMENTATION QUERY Dr. VERGARA, In your clinical opinion does this patient have: ( X ) Morbid obesity with BMI of 50 ( ) Other explanation of clinical findings (Please Explain) ( ) Unable to determine (Please Define) ( ) Need to Discuss ( ) Not Agree The medical record reflects the following clinical findings, treatment, and risk factors. Clinical Indicators: Noted pt's BMI to be 50. No documentation of corresponding medical diagnosis. Treatment: carb counted diet Risk Factors: DM, COPD, chronic systolic CHF, cirrhosis A significantly high ( > 40) BMI will impact the severity of illness and risk of mortality of your patient. However, the physician must document a correlating diagnosis in the medical Record. Please clarify and document your clinical opinion in the progress notes and discharge summary. Terms such as "probable", "suspected", "likely", "questionable", "possible", or "still to be ruled out" are acceptable. IF IN AGREEMENT, YOU MUST DOCUMENT ABOVE DIAGNOSTIC STATEMENT IN DAILY PROGRESS NOTES AND DISCHARGE SUMMARY. This document is not part of the patient's record. Thank You, Verenice Dawn, RN [phone]
[2016-10-12] MEDS ORDERED: FLUCONAZOLE 50 MG TAB PO ONE (10:00)
[2016-10-12] MEDS ORDERED: MAGNESIUM SULFATE 1GM / D5W 1 GM in PREMIXED IN D5W 100 ML IV ONE (10:30)
--- NOTE | 2016-10-12 10:47 | INFECT. DISEASE CONSULTATION ---
DATE OF CONSULTATION: 10/12/2016 REQUESTING PHYSICIAN: Dr. Canales. HISTORY OF PRESENT ILLNESS: This is a 66-year-old who was evaluated yesterday in the wound care center. She was sent in for direct admission for worsening lower extremity cellulitis and left first toe ulceration suspicious for osteomyelitis. She does have multiple antibiotic allergies and it was suggested that she be given intravenous therapy with daptomycin. This was initiated upon admission yesterday and she is tolerating this well. She did have an ultrasound of the legs done this morning and the results of this are pending. Wound and blood cultures are pending. She recently had an outpatient culture which grew enterococcus. She was on a prolonged course of clindamycin. She does not feel that she had any improvement in symptoms of her cellulitis or toe ulceration. Yesterday in the wound care center, she was complaining of subjective fevers and chills. She was afebrile at that time and has been afebrile since admission. This morning she is awake and eating breakfast. She denies any pain. She states her erythema and edema are unchanged. She currently denies any fevers or chills. She has no chest pain, cough, shortness of breath, nausea, vomiting or diarrhea. She is complaining of vaginal candidiasis secondary to the prolonged course of clindamycin. She is requesting treatment for this. All remaining review of systems are reviewed and are negative except for as noted above. PAST MEDICAL HISTORY: Significant for cirrhosis, COPD, type 2 diabetes, GERD, hepatic lesions, colon polyps, hypertension, portal hypertension, pulmonary nodules. SURGICAL HISTORY: Significant for hysterectomy and tonsillectomy. FAMILY HISTORY: Noncontributory. SOCIAL HISTORY: Significant for history of tobacco use. She denies any drug use or alcohol use. ALLERGIES: SHE HAS ALLERGIES TO KEFLEX, IODINE, PENICILLIN AND SULFA. CURRENT MEDICATIONS: Include potassium, iron, Lasix, Lidoderm patch, Protonix, spironolactone, Coreg, probiotics, Elavil, Ativan, OxyContin, insulin, daptomycin, albuterol, hydrocortisone cream, Roxicodone, Tylenol and Zofran. PHYSICAL EXAMINATION: VITAL SIGNS: She is afebrile, pulse 76, respiratory rate is 20, blood pressure is 101/63, oxygen saturation is 94-96% on room air. GENERAL: She is awake, alert and oriented x3. She is in no acute distress. HEENT: Mucous membranes are moist. Extraocular muscles are intact. HEART: Regular. LUNGS: Clear bilaterally. ABDOMEN: Soft, nontender, nondistended. EXTREMITIES: There is bilateral lower extremity warmth, left greater than right. Erythema is present. Significant edema and lymphedema is present. Toe ulceration was noted in the wound care center yesterday to have an area of necrosis but no drainage. LABORATORY STUDIES: CBC reveals a white blood cell count of 6.3, hemoglobin 9.9, platelets are 183. Chemistry panel reveals sodium of 134, potassium 4.0, chloride 97, bicarbonate 29, BUN 6, creatinine 0.6, glucose is 139. LFTs are within normal limits on admission. Urinalysis was unremarkable. Wound culture is pending. Blood cultures are pending. Doppler studies done at 8:30 this morning are negative for DVT. ASSESSMENT AND PLAN: Left toe ulceration with previous enterococcus growing and superimposed cellulitis. At this time, she will be continued on IV daptomycin secondary to drug-drug interactions and multiple antibiotic allergies. I will await the results of wound culture. She was scheduled to have an MRI done through the wound care center and certainly this could be done while inpatient. Inflammatory markers will be ordered as well as there is suspicion for underlying osteomyelitis. Thank you for this consultation.
--- NOTE | 2016-10-12 11:14 | Pharmacy Progress Note ---
Glycemic Control: Progress Nt Date of Service Oct 12, 2016. Scope Glycemic Pharmacist consulted by Mariah Gutierrez PA-C on 10/11/16 for glycemic control and to write orders per [facility] inpatient glycemic control protocol. Objective Accuchecks BSG (last 24hrs): Test 10/11/16 17:10 10/11/16 17:35 10/11/16 21:52 10/12/16 07:13 Bedside Glucose 189 mg/dl (70-90) 186 mg/dl (70-90) Random Glucose 205 mg/dl (70-99) 136 mg/dl (70-99) Test 10/12/16 07:36 Bedside Glucose 139 mg/dl (70-90) Laboratory Data (last 24hrs) HbA1c: Test 10/12/16 07:13 Hemoglobin A1c 6.0 % (4.5-5.6) H Recent Pertinent Medications Outpatient Anti-diabetic Regimen: * Novolin 70/30 premixed insulin 50 units with AM meal + 60 units with PM meal The patient is currently receiving: * Basal insulin: Lantus 20 units SQ BID * Correctional Insulin: Novolog Correction per scale ACHS Goal Range: Low 110 mg/dL - High 140 mg/dL Correction Factor: 20mg/dL/unit * Prandial insulin: Per carb ratio of 1 unit per 7 grams CHO consumed Risk Factors for Insulin Resistance: * Infection * Diet Assessment & Plan ASSESSMENT: * 66yo T2DM female known to pharmacy from previous admissions/glycemic consults * Outpatient regimen is premixed basal/prandial insulin of Novolin 70/30 mix insulin. * Pre-mixed insulin is difficult to titrate since it is already in a fixed distribution of basal:prandial insulin. Continuing pre-mixed insulin for admission typically lead to hypoglycemia d/t changing PO status but rapid acting insulin is unable to be held. * Home regimen will be held for admission per pharmacy consult. Recommended inpatient regimen of SQ basal bolus insulin regimen with Lantus + NovoLog (CF+CR ) initiated per previous admissions data and consistent with weight/stress based dosing * Pt typically requires ~70-100+ units of insulin per day per previous admissions but more risk factors for insulin resistance present when 100+ units of insulin /day necessary. * Will aim for a total daily dose of ~80 units/day and titrate dosing based on BSG trends. * ADA & AACE recommend a goal blood sugar range 140-180 mg/dl for the majority of critically ill & non-critically ill patients. However, more stringent targets may be selected in individual cases. Will utilize more stringent goal of 110-140mg/dl based on patient age & comorbidities. Additionally, tighter glycemic control is warranted to facilitate wound/infection healing. PLAN FOR INPATIENT GLYCEMIC CONTROL: No changes needed at this time. * Continue to hold outpatient pre-mixed insulin regimen --> may continue at discharge, may need lower doses. See discharge recs below. * Continue Basal insulin with LANTUS 20 units SQ BID * Administer 1/2 dose (10 units) if BSG < 110mg/dl * Continue NovoLog per scale ACHS or Q6hrs while NPO * Goal Range: Low 110 mg/dL - High 140 mg/dL * Correction Factor: 20 mg/dL/unit * Nutritional / Prandial insulin per carb ratio of 1 unit per 7 grams CHO consumed Looking ahead to discharge: * A1c = 6% on 10/12/16 * This result may not be totally reliable d/t recent blood transfusion 08/2016 & cirrhosis of liver * Recommend adjusting outpatient insulin regimen based on POC BSG results. Pt may need less stringent control based on multiple co-morbidities. Outpatient dosing may need decreased if patient is experiencing hypoglycemia. * Please note that the plan above was derived based on current level of insulin resistance and hospital stress. These recommendations are appropriate for inpatient admission only. Plan of care upon discharge will need to be reassessed to avoid potential outpatient hypo/hyperglycemia. Thank you.
[2016-10-12 14:59] VITALS: BP 98/64; PULSE 88; TEMP 36.6; O2SAT 91
[2016-10-12 17:29] VITALS: BP 112/70; PULSE 92
[2016-10-12] MEDS: OXYCODONE HCL IR 5 MG TAB (IMMEDIATE RELEASE) PO PRN (17:33)
[2016-10-12] MEDS: POTASSIUM CHLORIDE 20 MEQ TABCR PO SCH (17:33)
--- NOTE | 2016-10-12 18:04 | Progress Note ---
Internal Med Progress Note Date of Service: Oct 12, 2016. Provider Documentation: SUBJECTIVE: Patient is sitting in her bed in no apparent distress. Legs are feeling better and still c/o pain in the legs. No SOB. Remains afebrile although c/o being cold. OBJECTIVE: Vital Signs-as noted below Examination: General Appearance: Pleasant WD/WN 66 year old female lying in bed in NAD Head: normocephalic, atraumatic Eyes: PERRL, EOMI, sclerae normal ENT: hearing grossly normal, pharynx normal Neck: supple, no JVD Respiratory/Chest: chest non-tender, lungs clear, normal breath sounds, no respiratory distress, no accessory muscle use Cardiovascular: regular rate, rhythm, no gallop, no JVD, no murmur, normal peripheral pulses Abdomen/GI: normal bowel sounds, non tender, soft Back: normal inspection, no muscle spasm Extremities/Musculoskeletal: normal capillary refill, + calf tenderness, No palpable cord, chronic lymphedema changes, erythema to BLLE with some skin tears , left great toe ulcer with surrounding erythema, Sensitive to touch. Neurologic/Psych: no motor/sensory deficits, alert, oriented x 3 Skin: normal color, warm/dry, no rash Lymphatic: no adenopathy Lab data as noted below. ASSESSMENT & PLAN: 66 year old female presents as a direct admission from wound care for worsening cellulitis B/L Lower Extremities Cellulitis: Has Left Great Toe ulceration. Is afebrile and has no Leukocytosis. Last wound cultures grew E. faecalis -Blood cultures, wound cultures pending -Venous Doppler US rules out DVT. -Empirically treat with Daptomycin (day # 2) per ID recommendation, pharmacy consulted for dosing -Infectious disease consult placed -Wound care physician and nurse consults placed -CBC, PRP, Mg in AM -Continue outpatient pain regimen. Demanding higher doses of Narcotics although does not seem to be in acute pain. History Diabetes: Stable. HbA1c is 6.0. -SSI coverage -pharmacy consulted for glycemic control History COPD/ Chronic Respiratory Failure: Stable. As per patient, she uses her oxygen only as needed. -Continue home inhalers Mejía Cirrhosis: Will follow LFTs Morbid Obesity: (BMI >50). Counselled patient. H/O Multiple GI Bleeds/GAVE: Avoid anticoagulation/antiplatelets -Continue iron supplement -Hgb stable, monitor daily History GERD: Stable. Continue Protonix Chronic Systolic CHF: Stable. -Continue Lasix -Continue B-Annika DVT Prophylaxis: Sq heparin Code Status: FULL CODE Disposition: Discharge once final culture results are available and have a plan for antibiotics. Vital Signs: Date Time Temp Pulse Resp B/P Pulse Ox O2 Delivery O2 Flow Rate FiO2 10/13/16 08:03 91 Room Air 10/13/16 06:55 36.4 87 18 104/63 95 Room Air 10/13/16 00:25 36.5 79 20 91/52 94 Room Air 10/13/16 00:00 95 Room Air 10/12/16 20:00 95 Room Air 10/12/16 17:29 92 112/70 10/12/16 16:00 Room Air 10/12/16 14:59 36.6 88 18 98/64 91 Room Air Lab Results: Results Past 24 Hours Test 10/12/16 11:11 10/12/16 16:10 10/12/16 20:26 10/13/16 07:17 Range/Units Bedside Glucose 157 109 177 70-90 mg/dl White Blood Count 5.43 4.8-10.8 K/uL Red Blood Count 3.58 4.2-5.4 M/uL Hemoglobin 9.9 12.0-16.0 g/dL Hematocrit 30.6 37-47 % Mean Corpuscular Volume 85.5 80-100 fL Mean Corpuscular Hemoglobin 27.7 25-34 pg Mean Corpuscular Hemoglobin Concent 32.4 32-36 g/dl Platelet Count 193 130-400 K/uL Mean Platelet Volume 8.7 7.4-10.4 fL Neutrophils (%) (Auto) 52.5 % Lymphocytes (%) (Auto) 18.8 % Monocytes (%) (Auto) 12.5 % Eosinophils (%) (Auto) 15.3 % Basophils (%) (Auto) 0.7 % Neutrophils # (Auto) 2.85 1.4-6.5 K/uL Lymphocytes # (Auto) 1.02 1.2-3.4 K/uL Monocytes # (Auto) 0.68 0.11-0.59 K/uL Eosinophils # (Auto) 0.83 0-0.5 K/uL Basophils # (Auto) 0.04 0-0.2 K/uL RDW Standard Deviation 61.7 36.4-46.3 fL RDW Coefficient of Variation 19.3 11.5-14.5 % Immature Granulocyte % (Auto) 0.2 % Immature Granulocyte # (Auto) 0.01 0.00-0.02 K/uL Sodium Level 134 136-145 mmol/L Potassium Level 4.1 3.5-5.1 mmol/L Chloride Level 98 98-107 mmol/L Carbon Dioxide Level 30 21-32 mmol/L Anion Gap 6.0 3-11 mmol/L Blood Urea Nitrogen 8 7-18 mg/dl Creatinine 0.66 0.60-1.20 mg/dl Est Creatinine Clear Calc Drug Dose 96.3 ml/min Estimated GFR () 105.9 Estimated GFR (Non- 91.4 BUN/Creatinine Ratio 11.8 10-20 Random Glucose 140 70-99 mg/dl Calcium Level 8.4 8.5-10.1 mg/dl Test 10/13/16 07:27 Range/Units Bedside Glucose 131 70-90 mg/dl
[2016-10-12] MEDS: DAPTOMYCIN IV SCH (19:40)
[2016-10-12] MEDS: SODIUM CHLORIDE 0.9% IV SCH (19:40)
[2016-10-12 20:00] VITALS: O2SAT 95
[2016-10-12] MEDS: AMITRIPTYLINE HCL 50 MG TAB PO SCH (20:39)
[2016-10-13] VITALS (7 sets, daily range): BP systolic 91–125; BP diastolic 52–75; PULSE 79–90; TEMP 36.4–37; O2SAT 91–95
[2016-10-13 07:42] LABS: BASO % 0.7 %; BASO ABS # 0.04 K/uL (0-0.2); COMPLETE YES; EOS % 15.3 %; HEMATOCRIT 30.6 % (37-47); IG% 0.2 %; LYMPH % 18.8 %; LYMPH ABS # 1.02 K/uL (1.2-3.4); MEAN CELL VOLUME 85.5 fL (80-100); MEAN CORPUSCULAR HEMOGLOBIN 27.7 pg (25-34); MEAN CORPUSCULAR HGB CONC 32.4 g/dl (32-36); MEAN PLATELET VOLUME 8.7 fL (7.4-10.4); MONO % 12.5 %; NEUT % 52.5 %; PLATELET COUNT 193 K/uL (130-400); RED BLOOD COUNT 3.58 M/uL (4.2-5.4); WHITE BLOOD COUNT 5.43 K/uL (4.8-10.8)
[2016-10-13] MEDS: LORAZEPAM 1 MG TAB PO SCH ×2 (08:06→21:05)
[2016-10-13] MEDS: OXYCODONE HCL 20 MG TABCR (OXYCONTIN) PO SCH ×2 (08:06→21:05)
[2016-10-13] MEDS: POTASSIUM CHLORIDE 20 MEQ TABCR PO SCH ×3 (08:07→19:03)
[2016-10-13] MEDS: SPIRONOLACTONE 100 MG TAB PO SCH (08:07)
[2016-10-13] MEDS: LACTOBACILLUS ACIDOPHILUS 1 GM PACK PO SCH ×3 (08:08→19:02)
[2016-10-13] MEDS: CARVEDILOL 3.125 MG TAB PO SCH ×2 (08:08→19:03)
[2016-10-13] MEDS: PANTOprazole SOD 40 MG TAB PO SCH (08:08)
[2016-10-13] MEDS: FUROSEMIDE 40 MG TAB PO SCH (08:09)
[2016-10-13] MEDS: FERROUS SULFATE 325 MG TAB PO SCH (08:09)
[2016-10-13 08:30] LABS: BUN/CREATININE RATIO 11.8 (10-20); CALCIUM 8.4 mg/dl (8.5-10.1); CREATININE 0.66 mg/dl (0.60-1.20); POTASSIUM 4.1 mmol/L (3.5-5.1)
[2016-10-13] MEDS: LIDODERM (LIDOCAINE) PATCH 5% TD SCH (08:38)
[2016-10-13] MEDS: INSULIN GLARGINE SOLOSTAR 100 UNITS/ML 3 ML PEN SC SCH ×2 (08:45→21:30)
[2016-10-13] MEDS: INSULIN ASPART 100 UNITS/ML 3 ML PEN SC SCH ×4 (08:45→21:29)
--- NOTE | 2016-10-13 10:33 | Progress Note ---
Subjective Date of Service: Oct 13, 2016. Subjective pt tolerating abx. No fevers overnight, inflam markers elevated slightly. tolerating abx. Blood cultures negative to date, wound cultures with marketing project manager, suspect nml sara. Toe ulcer culture with marketing project manager and now with proteus as well. Previous wound culture grew Enterococcus. Problem List Medical Problems: (1) Bilateral lower leg cellulitis Status: Acute (2) Bilateral lower leg cellulitis Status: Acute (3) Cellulitis Status: Acute (4) Cellulitis of lower leg Status: Acute (5) Cellulitis of right leg Status: Acute (6) Failure of outpatient treatment Status: Acute (7) Lower extremity edema Status: Acute (8) Shortness of breath Status: Acute (9) SOB (shortness of breath) Status: Acute (10) Swelling of left extremity Status: Acute (11) Swelling of right extremity Status: Acute (12) Symptomatic anemia Status: Acute (13) Weakness Status: Acute (14) Weakness generalized Status: Acute Objective Vital Signs Date Time Temp Pulse Resp B/P Pulse Ox O2 Delivery O2 Flow Rate FiO2 10/13/16 08:03 91 Room Air 10/13/16 06:55 36.4 87 18 104/63 95 Room Air 10/13/16 00:25 36.5 79 20 91/52 94 Room Air 10/13/16 00:00 95 Room Air 10/12/16 20:00 95 Room Air 10/12/16 17:29 92 112/70 10/12/16 16:00 Room Air 10/12/16 14:59 36.6 88 18 98/64 91 Room Air Laboratory Results Item Value Date Time Gram Stain - Final Resulted 10/11/16 2100 Ulcer Toe Left 1 Gram Stain - Final Resulted 10/11/16 2100 Skin Leg Right Lower Gram Stain - Final Resulted 10/11/16 2100 Skin Leg Lower Left Blood Culture - Preliminary Resulted 10/11/16 1745 Blood NO GROWTH TO DATE. Blood Culture - Preliminary Resulted 10/11/16 1735 Blood NO GROWTH TO DATE. Last 24 Hours Test 10/12/16 11:11 10/12/16 16:10 10/12/16 20:26 10/13/16 07:17 Bedside Glucose 157 mg/dl 109 mg/dl 177 mg/dl White Blood Count 5.43 K/uL Red Blood Count 3.58 M/uL Hemoglobin 9.9 g/dL Hematocrit 30.6 % Mean Corpuscular Volume 85.5 fL Mean Corpuscular Hemoglobin 27.7 pg Mean Corpuscular Hemoglobin Concent 32.4 g/dl Platelet Count 193 K/uL Mean Platelet Volume 8.7 fL Neutrophils (%) (Auto) 52.5 % Lymphocytes (%) (Auto) 18.8 % Monocytes (%) (Auto) 12.5 % Eosinophils (%) (Auto) 15.3 % Basophils (%) (Auto) 0.7 % Neutrophils # (Auto) 2.85 K/uL Lymphocytes # (Auto) 1.02 K/uL Monocytes # (Auto) 0.68 K/uL Eosinophils # (Auto) 0.83 K/uL Basophils # (Auto) 0.04 K/uL RDW Standard Deviation 61.7 fL RDW Coefficient of Variation 19.3 % Immature Granulocyte % (Auto) 0.2 % Immature Granulocyte # (Auto) 0.01 K/uL Sodium Level 134 mmol/L Potassium Level 4.1 mmol/L Chloride Level 98 mmol/L Carbon Dioxide Level 30 mmol/L Anion Gap 6.0 mmol/L Blood Urea Nitrogen 8 mg/dl Creatinine 0.66 mg/dl Est Creatinine Clear Calc Drug Dose 96.3 ml/min Estimated GFR () 105.9 Estimated GFR (Non- 91.4 BUN/Creatinine Ratio 11.8 Random Glucose 140 mg/dl Calcium Level 8.4 mg/dl Test 10/13/16 07:27 Bedside Glucose 131 mg/dl Assessment and Plan (1) Toe ulcer Assessment & Plan: will add ertapenem to dapto. Unclear significance of marketing project manager from superficial cultures, suspect skin colonization, however, she is on dapto for previous diagnosed Enterococcus in wound and this will treat marketing project manager as well. She does have slight elevation in inflam markers, ? underlying toe osteo, would suggest MRI foot to r/o deep infection. Blood cultures are negative so far, she will likely require min 4 weeks of IV abx, ok for picc from Id standpoint. continue local wound care. (2) Cellulitis
[2016-10-13] MEDS: OXYCODONE HCL IR 5 MG TAB (IMMEDIATE RELEASE) PO PRN ×2 (11:01→19:10)
--- NOTE | 2016-10-13 11:04 | DIAGNOSTIC IMAGING REPORT ---
MRI left toes LOWER EXT NON JOINT COMBO CLINICAL HISTORY: L big toe swelling ro osteomyelitis osteomyelitis TECHNIQUE: MRI multi axial acquisition COMPARISON STUDY: None FINDINGS: Limited study technically due to considerable patient motion. Findings consistent with bone marrow replacement base of the distal phalanx great toe. Soft tissue edema is present. Increased signal on inversion recovery sequences study is positive for postcontrast enhancement. No evidence for abscess or collection. Degenerative change of the metatarsophalangeal joint. IMPRESSION: 1. Osteomyelitis base distal phalanx great toe.. 2. Surrounding cellulitis. 3. Moderate degenerative change of the remaining visualized osseous structures Electronically signed by: Bj Marcial M.D. 10/13/2016 11:03 AM Dictated Date/Time: 10/13/2016 11:00 AM
[2016-10-13] MEDS: ERTAPENEM IV 1 GM in SODIUM CHLOR 0.9% AD-VAN 50ML 50 ML IV SCH (11:24)
--- NOTE | 2016-10-13 11:49 | PROGRESS NOTE ---
DATE: 10/13/2016 SUBJECTIVE: The patient was admitted to [facility] yesterday for intravenous antibiotic therapy for cellulitis of the left lower extremity as well as a Wilkerson grade 2 diabetic foot ulcer of left great toe. The patient has no new complaints today. The patient denies any fevers, chills or night sweats. The patient denies any other systemic complaints. OBJECTIVE: The patient's vital signs were reviewed and found to be unremarkable. The patient is afebrile. The ulceration of the left great toe again today demonstrates the same size as yesterday at 0.9 x 0.9 x 1 cm. There is slough present as well as undermining skin noted. There is some periwound erythema present. There is no active drainage or odor. There is erythema noted to the left lower extremity in both legs. ASSESSMENT: 1. Wilkerson grade 2 diabetic foot ulcer, left great toe, with deterioration. 2. Cellulitis, left lower extremity in the face of venous ulcerations. PLAN: At this time, the left great toe ulceration did require debridement. With the patient's permission and after the application of topical Xylocaine this was performed with a #5 curette, scissors and forceps undermining skin, central slough as well as some underlying subcutaneous tissue was removed. Bleeding did occur which was controlled with direct pressure and silver nitrate. Sites will be dressed with Aquacel AG and gauze changed daily. The patient will continue her current intravenous antibiotic therapy per Dr. Wilcox. The patient will be reevaluated as needed during her hospitalization and be followed up in the outpatient clinic upon discharge. This represented an excisional debridement of less than 20 square cm.
--- NOTE | 2016-10-13 11:58 | Pharmacy Progress Note ---
Glycemic Control: Progress Nt Date of Service Oct 13, 2016. Scope Glycemic Pharmacist consulted by Mariah Gutierrez PA-C on 10/11/16 for glycemic control and to write orders per [facility] inpatient glycemic control protocol. Objective Accuchecks BSG (last 24hrs): Test 10/12/16 16:10 10/12/16 20:26 10/13/16 07:17 10/13/16 07:27 Bedside Glucose 109 mg/dl (70-90) 177 mg/dl (70-90) 131 mg/dl (70-90) Random Glucose 140 mg/dl (70-99) Test 10/13/16 11:09 Bedside Glucose 113 mg/dl (70-90) Laboratory Data (last 24hrs) HbA1c: Test 10/12/16 07:13 Hemoglobin A1c 6.0 % (4.5-5.6) H Recent Pertinent Medications Outpatient Anti-diabetic Regimen: * Novolin 70/30 premixed insulin 50 units with AM meal + 60 units with PM meal The patient is currently receiving: * Basal insulin: Lantus 20 units SQ BID * Correctional Insulin: Novolog Correction per scale ACHS Goal Range: Low 110 mg/dL - High 140 mg/dL Correction Factor: 20mg/dL/unit * Prandial insulin: Per carb ratio of 1 unit per 7 grams CHO consumed Risk Factors for Insulin Resistance: * Infection * Diet Assessment & Plan ASSESSMENT: * 66yo T2DM female known to pharmacy from previous admissions/glycemic consults * Outpatient regimen is premixed basal/prandial insulin of Novolin 70/30 mix insulin. * Pre-mixed insulin is difficult to titrate since it is already in a fixed distribution of basal:prandial insulin. Continuing pre-mixed insulin for admission typically lead to hypoglycemia d/t changing PO status but rapid acting insulin is unable to be held. * Home regimen will be held for admission per pharmacy consult. Recommended inpatient regimen of SQ basal bolus insulin regimen with Lantus + NovoLog (CF+CR ) initiated per previous admissions data and consistent with weight/stress based dosing * Pt has been receiving ~ 60 units of insulin per day with adequate glycemic control * Regimen is weighted towards basal insulin (70% of TDD) however minimal CHO consumed at lunch and dinner therefore decreased prandial coverage given * AM fasting BSG is in goal range @ 139, 131 over the past 2 days --> no changes needed to basal insulin dosing * Post-prandial BSGs are in range --> No changes needed to CF/CR * ADA & AACE recommend a goal blood sugar range 140-180 mg/dl for the majority of critically ill & non-critically ill patients. However, more stringent targets may be selected in individual cases. Will utilize more stringent goal of 110-140mg/dl based on patient age & comorbidities. Additionally, tighter glycemic control is warranted to facilitate wound/infection healing. PLAN FOR INPATIENT GLYCEMIC CONTROL: No changes needed at this time. * Continue to hold outpatient pre-mixed insulin regimen --> may continue at discharge, may need lower doses. See discharge recs below. * Continue Basal insulin with LANTUS 20 units SQ BID * Administer 1/2 dose (10 units) if BSG < 110mg/dl * Continue NovoLog per scale ACHS or Q6hrs while NPO * Goal Range: Low 110 mg/dL - High 140 mg/dL * Correction Factor: 20 mg/dL/unit * Nutritional / Prandial insulin per carb ratio of 1 unit per 7 grams CHO consumed Looking ahead to discharge: * A1c = 6% on 10/12/16 * This result may not be totally reliable d/t recent blood transfusion 08/2016 & cirrhosis of liver * Recommend adjusting outpatient insulin regimen based on POC BSG results. Pt may need less stringent control based on multiple co-morbidities. * Outpatient dosing may need decreased if patient is experiencing hypoglycemia. * Continue Premixed insulin regimen of Novolin 70/30 --> will update dosing recs closer to discharge if dose change needed. * Please note that the plan above was derived based on current level of insulin resistance and hospital stress. These recommendations are appropriate for inpatient admission only. Plan of care upon discharge will need to be reassessed to avoid potential outpatient hypo/hyperglycemia. Thank you.
[2016-10-13] MEDS: HYDROCORTISONE 1% CR 30 GM TUBE EXT PRN ×2 (13:16→21:07)
--- NOTE | 2016-10-13 17:47 | Progress Note ---
Internal Med Progress Note Date of Service: Oct 13, 2016. Provider Documentation: SUBJECTIVE: Patient is lying in her bed in no apparent distress. Legs are feeling better and still c/o pain in the legs. No SOB. Remains afebrile although c/o being cold. OBJECTIVE: Vital Signs-as noted below Examination: General Appearance: Pleasant WD/WN 66 year old female lying in bed in NAD Head: normocephalic, atraumatic Eyes: PERRL, EOMI, sclerae normal ENT: hearing grossly normal, pharynx normal Neck: supple, no JVD Respiratory/Chest: chest non-tender, lungs clear, normal breath sounds, no respiratory distress, no accessory muscle use Cardiovascular: regular rate, rhythm, no gallop, no JVD, no murmur, normal peripheral pulses Abdomen/GI: normal bowel sounds, non tender, soft Back: normal inspection, no muscle spasm Extremities/Musculoskeletal: normal capillary refill, + calf tenderness, No palpable cord, chronic lymphedema changes, erythema to BLLE with some skin tears , left great toe ulcer with surrounding erythema, Sensitive to touch. Neurologic/Psych: no motor/sensory deficits, alert, oriented x 3 Skin: normal color, warm/dry, no rash Lymphatic: no adenopathy Lab data as noted below. ASSESSMENT & PLAN: MRI left toes LOWER EXT NON JOINT COMBO CLINICAL HISTORY: L big toe swelling ro osteomyelitis osteomyelitis TECHNIQUE: MRI multi axial acquisition COMPARISON STUDY: None FINDINGS: Limited study technically due to considerable patient motion. Findings consistent with bone marrow replacement base of the distal phalanx great toe. Soft tissue edema is present. Increased signal on inversion recovery sequences study is positive for postcontrast enhancement. No evidence for abscess or collection. Degenerative change of the metatarsophalangeal joint. IMPRESSION: 1. Osteomyelitis base distal phalanx great toe.. 2. Surrounding cellulitis. 3. Moderate degenerative change of the remaining visualized osseous structures 66 year old female presents as a direct admission from wound care for worsening cellulitis B/L Lower Extremities Cellulitis: Has Left Great Toe ulceration. Is afebrile and has no Leukocytosis. Last wound cultures grew E. faecalis -Blood cultures, wound cultures pending -Venous Doppler US rules out DVT. -Continue Daptomycin (day # 3) & Ertapenem (Day # 1)per ID recommendation, pharmacy consulted for dosing Will discuss with ID about MRI findings -Infectious disease consult placed -Wound care physician and nurse consults placed -Continue outpatient pain regimen. Demanding higher doses of Narcotics although does not seem to be in acute pain. History Diabetes: Stable. HbA1c is 6.0. -SSI coverage -Pharmacy consulted for glycemic control History COPD/ Chronic Respiratory Failure: Stable. As per patient, she uses her oxygen only as needed. -Continue home inhalers Mejía Cirrhosis: Will follow LFTs Morbid Obesity: (BMI >50). Counselled patient. H/O Multiple GI Bleeds/GAVE: Avoid anticoagulation/antiplatelets -Continue iron supplement -Hgb stable, monitor daily History GERD: Stable. Continue Protonix Chronic Systolic CHF: Stable. -Continue Lasix -Continue B-Annika DVT Prophylaxis: Sq heparin Code Status: FULL CODE Disposition: Discharge once final culture results are available and have a plan for antibiotics. Vital Signs: Date Time Temp Pulse Resp B/P Pulse Ox O2 Delivery O2 Flow Rate FiO2 10/13/16 14:54 37.0 89 18 108/63 95 10/13/16 08:03 91 Room Air 10/13/16 08:00 Room Air 10/13/16 06:55 36.4 87 18 104/63 95 Room Air 10/13/16 00:25 36.5 79 20 91/52 94 Room Air 10/13/16 00:00 95 Room Air 10/12/16 20:00 95 Room Air Lab Results: Results Past 24 Hours Test 10/12/16 20:26 10/13/16 07:17 10/13/16 07:27 10/13/16 11:09 Range/Units Bedside Glucose 177 131 113 70-90 mg/dl White Blood Count 5.43 4.8-10.8 K/uL Red Blood Count 3.58 4.2-5.4 M/uL Hemoglobin 9.9 12.0-16.0 g/dL Hematocrit 30.6 37-47 % Mean Corpuscular Volume 85.5 80-100 fL Mean Corpuscular Hemoglobin 27.7 25-34 pg Mean Corpuscular Hemoglobin Concent 32.4 32-36 g/dl Platelet Count 193 130-400 K/uL Mean Platelet Volume 8.7 7.4-10.4 fL Neutrophils (%) (Auto) 52.5 % Lymphocytes (%) (Auto) 18.8 % Monocytes (%) (Auto) 12.5 % Eosinophils (%) (Auto) 15.3 % Basophils (%) (Auto) 0.7 % Neutrophils # (Auto) 2.85 1.4-6.5 K/uL Lymphocytes # (Auto) 1.02 1.2-3.4 K/uL Monocytes # (Auto) 0.68 0.11-0.59 K/uL Eosinophils # (Auto) 0.83 0-0.5 K/uL Basophils # (Auto) 0.04 0-0.2 K/uL RDW Standard Deviation 61.7 36.4-46.3 fL RDW Coefficient of Variation 19.3 11.5-14.5 % Immature Granulocyte % (Auto) 0.2 % Immature Granulocyte # (Auto) 0.01 0.00-0.02 K/uL Sodium Level 134 136-145 mmol/L Potassium Level 4.1 3.5-5.1 mmol/L Chloride Level 98 98-107 mmol/L Carbon Dioxide Level 30 21-32 mmol/L Anion Gap 6.0 3-11 mmol/L Blood Urea Nitrogen 8 7-18 mg/dl Creatinine 0.66 0.60-1.20 mg/dl Est Creatinine Clear Calc Drug Dose 96.3 ml/min Estimated GFR () 105.9 Estimated GFR (Non- 91.4 BUN/Creatinine Ratio 11.8 10-20 Random Glucose 140 70-99 mg/dl Calcium Level 8.4 8.5-10.1 mg/dl Test 10/13/16 16:19 Range/Units Bedside Glucose 126 70-90 mg/dl
[2016-10-13] MEDS: DAPTOMYCIN IV SCH (20:00)
[2016-10-13] MEDS: SODIUM CHLORIDE 0.9% IV SCH (20:00)
[2016-10-13] MEDS: AMITRIPTYLINE HCL 50 MG TAB PO SCH (21:06)
[2016-10-14 07:09] VITALS: BP 104/66; PULSE 80; TEMP 36.7; O2SAT 100
[2016-10-14] MEDS: POTASSIUM CHLORIDE 20 MEQ TABCR PO SCH ×3 (07:47→16:38)
[2016-10-14] MEDS: LACTOBACILLUS ACIDOPHILUS 1 GM PACK PO SCH ×3 (07:47→16:38)
[2016-10-14] MEDS: CARVEDILOL 3.125 MG TAB PO SCH ×2 (07:48→16:38)
[2016-10-14 08:00] VITALS: O2SAT 100
[2016-10-14] MEDS: OXYCODONE HCL 20 MG TABCR (OXYCONTIN) PO SCH ×2 (08:05→21:38)
[2016-10-14] MEDS: SPIRONOLACTONE 100 MG TAB PO SCH (08:05)
[2016-10-14] MEDS: FUROSEMIDE 40 MG TAB PO SCH (08:06)
[2016-10-14] MEDS: FERROUS SULFATE 325 MG TAB PO SCH (08:06)
[2016-10-14] MEDS: INSULIN ASPART 100 UNITS/ML 3 ML PEN SC SCH ×4 (08:09→21:45)
[2016-10-14] MEDS: LORAZEPAM 1 MG TAB PO SCH ×2 (08:11→21:38)
[2016-10-14] MEDS: PANTOprazole SOD 40 MG TAB PO SCH (08:13)
[2016-10-14] MEDS: LIDODERM (LIDOCAINE) PATCH 5% TD SCH (08:14)
[2016-10-14] MEDS: INSULIN GLARGINE SOLOSTAR 100 UNITS/ML 3 ML PEN SC SCH ×2 (08:19→21:45)
[2016-10-14] MEDS: ERTAPENEM IV 1 GM in SODIUM CHLOR 0.9% AD-VAN 50ML 50 ML IV SCH (12:24)
[2016-10-14 15:00] VITALS: BP 118/74; PULSE 65; TEMP 36.7; O2SAT 93
[2016-10-14] MEDS: OXYCODONE HCL IR 5 MG TAB (IMMEDIATE RELEASE) PO PRN (15:46)
--- NOTE | 2016-10-14 16:32 | Progress Note ---
Internal Med Progress Note Date of Service: Oct 14, 2016. Provider Documentation: SUBJECTIVE: Patient is lying in her bed in no apparent distress. Legs are feeling better and still c/o pain in the legs. No SOB. Remains afebrile although c/o being cold. OBJECTIVE: Vital Signs-as noted below Examination: General Appearance: Pleasant WD/WN 66 year old female lying in bed in NAD Head: normocephalic, atraumatic Eyes: PERRL, EOMI, sclerae normal ENT: hearing grossly normal, pharynx normal Neck: supple, no JVD Respiratory/Chest: chest non-tender, lungs clear, normal breath sounds, no respiratory distress, no accessory muscle use Cardiovascular: regular rate, rhythm, no gallop, no JVD, no murmur, normal peripheral pulses Abdomen/GI: normal bowel sounds, non tender, soft Back: normal inspection, no muscle spasm Extremities/Musculoskeletal: normal capillary refill, + calf tenderness, No palpable cord, chronic lymphedema changes, erythema to BLLE with some skin tears , left great toe ulcer with surrounding erythema, Sensitive to touch. Neurologic/Psych: no motor/sensory deficits, alert, oriented x 3 Skin: normal color, warm/dry, no rash Lymphatic: no adenopathy Lab data as noted below. ASSESSMENT & PLAN: MRI left toes LOWER EXT NON JOINT COMBO CLINICAL HISTORY: L big toe swelling ro osteomyelitis osteomyelitis TECHNIQUE: MRI multi axial acquisition COMPARISON STUDY: None FINDINGS: Limited study technically due to considerable patient motion. Findings consistent with bone marrow replacement base of the distal phalanx great toe. Soft tissue edema is present. Increased signal on inversion recovery sequences study is positive for postcontrast enhancement. No evidence for abscess or collection. Degenerative change of the metatarsophalangeal joint. IMPRESSION: 1. Osteomyelitis base distal phalanx great toe.. 2. Surrounding cellulitis. 3. Moderate degenerative change of the remaining visualized osseous structures 66 year old female presents as a direct admission from wound care for worsening cellulitis B/L Lower Extremities Cellulitis: Has Left Great Toe ulceration. Is afebrile and has no Leukocytosis. Last wound cultures grew E. faecalis -Blood cultures, wound cultures pending -Venous Doppler US rules out DVT. -Continue Daptomycin (day # 4) & Ertapenem (Day # 2)per ID recommendation, pharmacy consulted for dosing Will discuss with ID about MRI findings -Infectious disease consult reviewed. -Wound care physician and nurse consults placed -Continue outpatient pain regimen. Demanding higher doses of Narcotics although does not seem to be in acute pain. -Ordered PICC line placement. Consent obtained. History Diabetes: Stable. HbA1c is 6.0. -SSI coverage -Pharmacy consulted for glycemic control History COPD/ Chronic Respiratory Failure: Stable. As per patient, she uses her oxygen only as needed. -Continue home inhalers Mejía Cirrhosis: Will follow LFTs Morbid Obesity: (BMI >50). Counselled patient. H/O Multiple GI Bleeds/GAVE: Avoid anticoagulation/antiplatelets -Continue iron supplement -Hgb stable, monitor daily History GERD: Stable. Continue Protonix Chronic Systolic CHF: Stable. -Continue Lasix -Continue B-Annika DVT Prophylaxis: Sq heparin Code Status: FULL CODE Disposition: Discharge once final culture results are available and have a plan for antibiotics. Vital Signs: Date Time Temp Pulse Resp B/P Pulse Ox O2 Delivery O2 Flow Rate FiO2 10/14/16 15:00 36.7 65 20 118/74 93 Room Air 10/14/16 08:00 100 Room Air 10/14/16 07:09 36.7 80 20 104/66 100 Room Air 10/14/16 00:00 Room Air 10/13/16 23:24 36.4 90 18 125/75 91 Room Air Lab Results: Results Past 24 Hours Test 10/13/16 19:39 10/14/16 07:04 10/14/16 11:29 10/14/16 16:21 Range/Units Bedside Glucose 191 109 125 100 70-90 mg/dl
[2016-10-14] MEDS ORDERED: SODIUM CHLORIDE 0.9% IV SCH (20:00)
[2016-10-14] MEDS ORDERED: DAPTOMYCIN IV SCH (20:00)
[2016-10-14] MEDS: AMITRIPTYLINE HCL 50 MG TAB PO SCH (21:36)
[2016-10-15 00:33] VITALS: BP 126/68; PULSE 87; TEMP 37.1; O2SAT 93
[2016-10-15] MEDS ORDERED: DICLOFENAC SOD 1% GEL 100 GM TUBE EXT PRN (00:45)
[2016-10-15 07:10] LABS: BASO ABS # 0.07 K/uL (0-0.2); COMPLETE YES; EOS % 13.1 %; IG% 0.1 %; LYMPH % 24.6 %; LYMPH ABS # 1.78 K/uL (1.2-3.4); MEAN CELL VOLUME 84.7 fL (80-100); MEAN CORPUSCULAR HEMOGLOBIN 27.5 pg (25-34); MEAN CORPUSCULAR HGB CONC 32.5 g/dl (32-36); MEAN PLATELET VOLUME 8.6 fL (7.4-10.4); MONO % 16.5 %; NEUT % 44.7 %; PLATELET COUNT 238 K/uL (130-400); RED BLOOD COUNT 3.78 M/uL (4.2-5.4); WHITE BLOOD COUNT 7.23 K/uL (4.8-10.8)
[2016-10-15 07:14] VITALS: BP 112/62; PULSE 89; TEMP 36.7; O2SAT 93
[2016-10-15 07:40] LABS: BUN/CREATININE RATIO 10.1 (10-20); CALCIUM 8.8 mg/dl (8.5-10.1); CREATININE 0.86 mg/dl (0.60-1.20)
[2016-10-15] MEDS: POTASSIUM CHLORIDE 20 MEQ TABCR PO SCH ×2 (07:48→12:09)
[2016-10-15] MEDS: CARVEDILOL 3.125 MG TAB PO SCH (07:48)
[2016-10-15] MEDS: LACTOBACILLUS ACIDOPHILUS 1 GM PACK PO SCH ×2 (07:48→12:09)
[2016-10-15] MEDS: SPIRONOLACTONE 100 MG TAB PO SCH (07:49)
[2016-10-15] MEDS: FERROUS SULFATE 325 MG TAB PO SCH (07:49)
[2016-10-15] MEDS: LORAZEPAM 1 MG TAB PO SCH (07:50)
[2016-10-15] MEDS: OXYCODONE HCL 20 MG TABCR (OXYCONTIN) PO SCH (07:50)
[2016-10-15] MEDS: FUROSEMIDE 40 MG TAB PO SCH (07:50)
[2016-10-15] MEDS: LIDODERM (LIDOCAINE) PATCH 5% TD SCH (07:51)
[2016-10-15] MEDS: PANTOprazole SOD 40 MG TAB PO SCH (07:51)
[2016-10-15] MEDS ORDERED: INSULIN GLARGINE SOLOSTAR 100 UNITS/ML 3 ML PEN SC SCH (09:00)
[2016-10-15] MEDS: INSULIN ASPART 100 UNITS/ML 3 ML PEN SC SCH ×2 (09:02→12:43)
--- NOTE | 2016-10-15 10:42 | Progress Note ---
Internal Med Progress Note Date of Service: Oct 15, 2016. Provider Documentation: SUBJECTIVE: Patient is lying in her bed in no apparent distress. Legs are feeling better and still c/o pain in the legs. No SOB. Remains afebrile although c/o being cold. OBJECTIVE: Vital Signs-as noted below Examination: General Appearance: Pleasant WD/WN 66 year old female lying in bed in NAD Head: normocephalic, atraumatic Eyes: PERRL, EOMI, sclerae normal ENT: hearing grossly normal, pharynx normal Neck: supple, no JVD Respiratory/Chest: chest non-tender, lungs clear, normal breath sounds, no respiratory distress, no accessory muscle use Cardiovascular: regular rate, rhythm, no gallop, no JVD, no murmur, normal peripheral pulses Abdomen/GI: normal bowel sounds, non tender, soft Back: normal inspection, no muscle spasm Extremities/Musculoskeletal: normal capillary refill, + calf tenderness, No palpable cord, chronic lymphedema changes, erythema to BLLE with some skin tears , left great toe ulcer with surrounding erythema, Sensitive to touch. Neurologic/Psych: no motor/sensory deficits, alert, oriented x 3 Skin: normal color, warm/dry, no rash Lymphatic: no adenopathy Lab data as noted below. ASSESSMENT & PLAN: MRI left toes LOWER EXT NON JOINT COMBO CLINICAL HISTORY: L big toe swelling ro osteomyelitis osteomyelitis TECHNIQUE: MRI multi axial acquisition COMPARISON STUDY: None FINDINGS: Limited study technically due to considerable patient motion. Findings consistent with bone marrow replacement base of the distal phalanx great toe. Soft tissue edema is present. Increased signal on inversion recovery sequences study is positive for postcontrast enhancement. No evidence for abscess or collection. Degenerative change of the metatarsophalangeal joint. IMPRESSION: 1. Osteomyelitis base distal phalanx great toe.. 2. Surrounding cellulitis. 3. Moderate degenerative change of the remaining visualized osseous structures 66 year old female presents as a direct admission from wound care for worsening cellulitis B/L Lower Extremities Cellulitis: Has Left Great Toe ulceration. Is afebrile and has no Leukocytosis. Last wound cultures grew E. faecalis -Blood cultures, wound cultures pending -Venous Doppler US rules out DVT. -Continue Daptomycin (day # 5) & Ertapenem (Day # 3)per ID recommendation, pharmacy consulted for dosing Will discuss with ID about MRI findings -Infectious disease consult reviewed. -Wound care physician and nurse consults placed -Continue outpatient pain regimen. Demanding higher doses of Narcotics although does not seem to be in acute pain. -Ordered PICC line placement. Consent obtained. History Diabetes: Stable. HbA1c is 6.0. -SSI coverage -Pharmacy consulted for glycemic control History COPD/ Chronic Respiratory Failure: Stable. As per patient, she uses her oxygen only as needed. -Continue home inhalers Mejía Cirrhosis: Will follow LFTs Morbid Obesity: (BMI >50). Counselled patient. H/O Multiple GI Bleeds/GAVE: Avoid anticoagulation/antiplatelets -Continue iron supplement -Hgb stable, monitor daily History GERD: Stable. Continue Protonix Chronic Systolic CHF: Stable. -Continue Lasix -Continue B-Annika DVT Prophylaxis: Sq heparin Code Status: FULL CODE Disposition: Discharge once final culture results are available and have a plan for antibiotics as well PICC gets placed. Will be going to a facility to complete course of antibiotics. Vital Signs: Date Time Temp Pulse Resp B/P Pulse Ox O2 Delivery O2 Flow Rate FiO2 10/15/16 08:00 Room Air 10/15/16 07:14 36.7 89 20 112/62 93 Room Air 10/15/16 00:33 37.1 87 20 126/68 93 Room Air 10/15/16 00:00 Room Air 10/14/16 20:00 Room Air 10/14/16 16:15 Room Air 10/14/16 15:00 36.7 65 20 118/74 93 Room Air Lab Results: Results Past 24 Hours Test 10/14/16 11:29 10/14/16 16:21 10/14/16 20:01 10/15/16 06:55 Range/Units Bedside Glucose 125 100 170 70-90 mg/dl White Blood Count 7.23 4.8-10.8 K/uL Red Blood Count 3.78 4.2-5.4 M/uL Hemoglobin 10.4 12.0-16.0 g/dL Hematocrit 32.0 37-47 % Mean Corpuscular Volume 84.7 80-100 fL Mean Corpuscular Hemoglobin 27.5 25-34 pg Mean Corpuscular Hemoglobin Concent 32.5 32-36 g/dl Platelet Count 238 130-400 K/uL Mean Platelet Volume 8.6 7.4-10.4 fL Neutrophils (%) (Auto) 44.7 % Lymphocytes (%) (Auto) 24.6 % Monocytes (%) (Auto) 16.5 % Eosinophils (%) (Auto) 13.1 % Basophils (%) (Auto) 1.0 % Neutrophils # (Auto) 3.23 1.4-6.5 K/uL Lymphocytes # (Auto) 1.78 1.2-3.4 K/uL Monocytes # (Auto) 1.19 0.11-0.59 K/uL Eosinophils # (Auto) 0.95 0-0.5 K/uL Basophils # (Auto) 0.07 0-0.2 K/uL RDW Standard Deviation 60.7 36.4-46.3 fL RDW Coefficient of Variation 19.2 11.5-14.5 % Immature Granulocyte % (Auto) 0.1 % Immature Granulocyte # (Auto) 0.01 0.00-0.02 K/uL Sodium Level 134 136-145 mmol/L Potassium Level 4.0 3.5-5.1 mmol/L Chloride Level 94 98-107 mmol/L Carbon Dioxide Level 32 21-32 mmol/L Anion Gap 8.0 3-11 mmol/L Blood Urea Nitrogen 9 7-18 mg/dl Creatinine 0.86 0.60-1.20 mg/dl Est Creatinine Clear Calc Drug Dose 73.9 ml/min Estimated GFR () 81.0 Estimated GFR (Non- 69.9 BUN/Creatinine Ratio 10.1 10-20 Random Glucose 139 70-99 mg/dl Calcium Level 8.8 8.5-10.1 mg/dl Test 10/15/16 07:33 Range/Units Bedside Glucose 127 70-90 mg/dl
--- NOTE | 2016-10-15 10:53 | Progress Note ---
Subjective Date of Service: Oct 15, 2016. Subjective Pt evaluation today including: conversation w/ patient, physical exam, chart review, lab review pt seen in follow up, MRI c/w osteo first toe, culture with proteus, previous culture with enterococcus. blood culture negative. afebrile. feeling better. tolerating abx. for picc line today. wbc 7.2. Legs feeling better. no fevers, did not sleep well. no n/v/d/abd pain. all remaining ros reviewed and are negative. Problem List Medical Problems: (1) Bilateral lower leg cellulitis Status: Acute (2) Bilateral lower leg cellulitis Status: Acute (3) Cellulitis Status: Acute (4) Cellulitis of lower leg Status: Acute (5) Cellulitis of right leg Status: Acute (6) Failure of outpatient treatment Status: Acute (7) Lower extremity edema Status: Acute (8) Shortness of breath Status: Acute (9) SOB (shortness of breath) Status: Acute (10) Swelling of left extremity Status: Acute (11) Swelling of right extremity Status: Acute (12) Symptomatic anemia Status: Acute (13) Weakness Status: Acute (14) Weakness generalized Status: Acute Objective Vital Signs Date Time Temp Pulse Resp B/P Pulse Ox O2 Delivery O2 Flow Rate FiO2 10/15/16 08:00 Room Air 10/15/16 07:14 36.7 89 20 112/62 93 Room Air 10/15/16 00:33 37.1 87 20 126/68 93 Room Air 10/15/16 00:00 Room Air 10/14/16 20:00 Room Air 10/14/16 16:15 Room Air 10/14/16 15:00 36.7 65 20 118/74 93 Room Air Physical Exam General Appearance: WD/WN, no apparent distress Eyes: normal inspection, EOMI Neck: supple Respiratory/Chest: lungs clear Cardiovascular: regular rate, rhythm, no edema Abdomen: non tender, soft Extremities: + pedal edema, + swelling Neurologic/Psychiatric: alert, oriented x 3 Skin: normal color Laboratory Results Item Value Date Time Gram Stain - Final Complete 10/11/16 2100 Ulcer Toe Left 1 Blood Culture - Preliminary Resulted 10/11/16 1745 Blood NO GROWTH TO DATE. Blood Culture - Preliminary Resulted 10/11/16 1735 Blood NO GROWTH TO DATE. Last 24 Hours Test 10/14/16 11:29 10/14/16 16:21 10/14/16 20:01 10/15/16 06:55 Bedside Glucose 125 mg/dl 100 mg/dl 170 mg/dl White Blood Count 7.23 K/uL Red Blood Count 3.78 M/uL Hemoglobin 10.4 g/dL Hematocrit 32.0 % Mean Corpuscular Volume 84.7 fL Mean Corpuscular Hemoglobin 27.5 pg Mean Corpuscular Hemoglobin Concent 32.5 g/dl Platelet Count 238 K/uL Mean Platelet Volume 8.6 fL Neutrophils (%) (Auto) 44.7 % Lymphocytes (%) (Auto) 24.6 % Monocytes (%) (Auto) 16.5 % Eosinophils (%) (Auto) 13.1 % Basophils (%) (Auto) 1.0 % Neutrophils # (Auto) 3.23 K/uL Lymphocytes # (Auto) 1.78 K/uL Monocytes # (Auto) 1.19 K/uL Eosinophils # (Auto) 0.95 K/uL Basophils # (Auto) 0.07 K/uL RDW Standard Deviation 60.7 fL RDW Coefficient of Variation 19.2 % Immature Granulocyte % (Auto) 0.1 % Immature Granulocyte # (Auto) 0.01 K/uL Sodium Level 134 mmol/L Potassium Level 4.0 mmol/L Chloride Level 94 mmol/L Carbon Dioxide Level 32 mmol/L Anion Gap 8.0 mmol/L Blood Urea Nitrogen 9 mg/dl Creatinine 0.86 mg/dl Est Creatinine Clear Calc Drug Dose 73.9 ml/min Estimated GFR () 81.0 Estimated GFR (Non- 69.9 BUN/Creatinine Ratio 10.1 Random Glucose 139 mg/dl Calcium Level 8.8 mg/dl Test 10/15/16 07:33 Bedside Glucose 127 mg/dl Assessment and Plan (1) Toe ulcer Assessment & Plan: continue abx, for picc today. She will need min 4 weeks IV abx, tentative stop 11/09, will need weekly cbc, cmp, esr, crp, cpk while on abx. will need continued wound care. Can follow with ID post d/c in wound center as well. Ok for d/c from ID standpoint. (2) Cellulitis
--- NOTE | 2016-10-15 11:43 | Pharmacy Progress Note ---
Glycemic Control: Progress Nt Date of Service Oct 15, 2016. Scope Glycemic Pharmacist consulted by Mariah Gutierrez PA-C on 10/11/16 for glycemic control and to write orders per [facility] inpatient glycemic control protocol. Objective Accuchecks BSG (last 24hrs): Test 10/14/16 16:21 10/14/16 20:01 10/15/16 06:55 10/15/16 07:33 Bedside Glucose 100 mg/dl (70-90) 170 mg/dl (70-90) 127 mg/dl (70-90) Random Glucose 139 mg/dl (70-99) Laboratory Data (last 24hrs) Test 10/15/16 06:55 Anion Gap 8.0 mmol/L BUN/Creatinine Ratio 10.1 Blood Urea Nitrogen 9 mg/dl Creatinine 0.86 mg/dl Potassium Level 4.0 mmol/L Sodium Level 134 mmol/L White Blood Count 7.23 K/uL Red Blood Count 3.78 M/uL Hemoglobin 10.4 g/dL Hematocrit 32.0 % Mean Corpuscular Volume 84.7 fL Mean Corpuscular Hemoglobin 27.5 pg Mean Corpuscular Hemoglobin Concent 32.5 g/dl Platelet Count 238 K/uL Mean Platelet Volume 8.6 fL Neutrophils (%) (Auto) 44.7 % Lymphocytes (%) (Auto) 24.6 % Monocytes (%) (Auto) 16.5 % Eosinophils (%) (Auto) 13.1 % Basophils (%) (Auto) 1.0 % Neutrophils # (Auto) 3.23 K/uL Lymphocytes # (Auto) 1.78 K/uL Monocytes # (Auto) 1.19 K/uL Eosinophils # (Auto) 0.95 K/uL Basophils # (Auto) 0.07 K/uL HbA1c: Test 10/12/16 07:13 Hemoglobin A1c 6.0 % (4.5-5.6) H Recent Pertinent Medications Outpatient Anti-diabetic Regimen: * Novolin 70/30 premixed insulin 50 units with AM meal + 60 units with PM meal Risk Factors for Insulin Resistance: * Infection * Diet Assessment & Plan ASSESSMENT: 10/13/16 * 66yo T2DM female known to pharmacy from previous admissions/glycemic consults * Outpatient regimen is premixed basal/prandial insulin of Novolin 70/30 mix insulin. * Pre-mixed insulin is difficult to titrate since it is already in a fixed distribution of basal:prandial insulin. Continuing pre-mixed insulin for admission typically lead to hypoglycemia d/t changing PO status but rapid acting insulin is unable to be held. * Home regimen will be held for admission per pharmacy consult. Recommended inpatient regimen of SQ basal bolus insulin regimen with Lantus + NovoLog (CF+CR ) initiated per previous admissions data and consistent with weight/stress based dosing * Pt has been receiving ~ 60 units of insulin per day with adequate glycemic control * Regimen is weighted towards basal insulin (70% of TDD) however minimal CHO consumed at lunch and dinner therefore decreased prandial coverage given * AM fasting BSG is in goal range @ 139, 131 over the past 2 days --> no changes needed to basal insulin dosing * Post-prandial BSGs are in range --> No changes needed to CF/CR * ADA & AACE recommend a goal blood sugar range 140-180 mg/dl for the majority of critically ill & non-critically ill patients. However, more stringent targets may be selected in individual cases. Will utilize more stringent goal of 110-140mg/dl based on patient age & comorbidities. Additionally, tighter glycemic control is warranted to facilitate wound/infection healing. 10/15/16 * Patient is currently receiving an average of 50 units of insulin per day * 30 units of basal insulin * 20 units of prandial/correctional insulin * BSGs ranging 100 - 170 over the past 24hrs * Risk factors for insulin resistance remain constant over the past 24hrs * Infection is being adequately treated/Pt status improving * Based on average basal use, change Lantus to 15 units BID and continue current Novolog coverage PLAN FOR INPATIENT GLYCEMIC CONTROL: * Continue to hold outpatient pre-mixed insulin regimen --> may continue at discharge, may need lower doses. See discharge recs below. * Change Basal insulin to LANTUS 15 units SQ BID * HOLD if BSG <100 mg/dL * Continue NovoLog per scale ACHS or Q6hrs while NPO * Goal Range: Low 110 mg/dL - High 140 mg/dL * Correction Factor: 20 mg/dL/unit * Nutritional / Prandial insulin per carb ratio of 1 unit per 8 grams CHO consumed Looking ahead to discharge: * A1c = 6% on 10/12/16 * This result may not be totally reliable d/t recent blood transfusion 08/2016 & cirrhosis of liver * Recommend adjusting outpatient insulin regimen based on POC BSG results. Pt may need less stringent control based on multiple co-morbidities. * Outpatient dosing may need decreased if patient is experiencing hypoglycemia. * Please note that the plan above was derived based on current level of insulin resistance and hospital stress. These recommendations are appropriate for inpatient admission only. Plan of care upon discharge will need to be reassessed to avoid potential outpatient hypo/hyperglycemia. Thank you.
[2016-10-15] MEDS: ERTAPENEM IV 1 GM in SODIUM CHLOR 0.9% AD-VAN 50ML 50 ML IV SCH (12:08)
[2016-10-15] MEDS: OXYCODONE HCL IR 5 MG TAB (IMMEDIATE RELEASE) PO PRN (12:08)
--- NOTE | 2016-10-15 13:17 | Discharge Instructions ---
Discharge Instructions Date of Service Oct 15, 2016. Admission Reason for Admission: Left Lower Extremity Cellulitis Discharge Discharge Diagnosis / Problem: Osteomyelitis Left Big Toe Discharge Goals Goal(s): Decrease discomfort, Improve function, Increase independence, Improve disease control, Improve nutritional status, Learn about illness, Diagnostic testing, Therapeutic intervention Activity Recommendations Activity Limitations: per Instructions/Follow-up section Lifting Limitations: gradually increase as tolerated Exercise/Sports Limitations: gradually increase as tolerated Shower/Bathe: no limitations (With assistance) . Instructions / Follow-Up Instructions / Follow-Up Follow up with Infectious Disease [facility] as per their recommendations. Current Hospital Diet Patient's current hospital diet: AHA Diet (Heart Healthy), Diabetes Type 2 Diet Discharge Diet Recommended Diet: AHA Diet (Heart Healthy), Diabetes Type 2 Diet Pending Studies Studies pending at discharge: no Laboratory Results Hemoglobin A1c Test 10/12/16 07:13 Range/Units Estimated Average Glucose 126 mg/dl Hemoglobin A1c 6.0 H 4.5-5.6 % Medical Emergencies . Who to Call and When: Medical Emergencies: If at any time you feel your situation is an emergency, please call 911 immediately. . Non-Emergent Contact Non-Emergency issues call your: Primary Care Provider . . "Provider Documentation" section prepared by Quan Shaw. VTE Core Measure Inpt VTE Proph given/why not?: Unfractionated heparin SQ
[2016-10-15] MEDS ORDERED: SODIUM CHLORIDE 0.9% IV SCH (14:00)
[2016-10-15] MEDS ORDERED: DAPTOMYCIN IV SCH (14:00)
[2016-10-15 14:18] VITALS: BP 112/62; PULSE 89; TEMP 36.7; O2SAT 93
[2016-10-15 14:50] VITALS: BP 98/52; PULSE 84; TEMP 36.6; O2SAT 93
[2016-10-16] MEDS ORDERED: SODIUM CHLORIDE 0.9% IV SCH (10:00)
[2016-10-16] MEDS ORDERED: DAPTOMYCIN IV SCH (10:00)
[2016-10-16] MEDS ORDERED: CEFTRIAXONE SOD INJ 1 GM in DEXTROSE 5% ADD-VANTAGE 50ML 50 ML IV SCH (11:00)
--- NOTE | 2016-10-18 11:52 | Discharge Summary ---
Discharge Summary Date of Service Oct 18, 2016. Discharge Summary Admission Date: Oct 11, 2016 at 16:10 Discharge Date: Oct 15, 2016 Discharge Disposition: [facility] facility Principal Diagnosis: Osteomyelitis base distal phalanx great toe Cellulitis B/L Lower Extremities Secondary Diagnoses/Problems: History Diabetes COPD History MEJÍA Morbid Obesity History GI Bleeds in past GERD Chronic Systolic CHF Procedures: NONE Vaccinations: NONE Consultations: Infectious Disease Wound Care Pending Studies/Follow-Up: Follow up with Infectious Disease and Wound Care as outpatient. Medication Reconciliation Continued Medications: Albuterol Sulf (Albuterol Sulfate) 2.5 Mg/3 Ml Nebu 1 VIAL NEB QID PRN for SOB/Wheezing Albuterol Sulfate (Proair Respiclick) 108 Mcg/Act Aer 2 PUFFS INH QID PRN for wheezing Amitriptyline Hcl (Elavil) 50 Mg Tab 50 MG PO HS, TAB Carvedilol (Coreg) 3.125 Mg Tab 3.125 MG PO BIDM, TAB Ferrous Sulfate (Ferrous Sulfate) 325 Mg Tab 325 MG PO DAILY Furosemide (Lasix) 40 Mg Tab 40 MG PO DAILY, TAB Hydrocortisone 1% (Hydrocortisone 1%) 90 Appln/30 Gm Cr 1 APPLN TOP BID PRN for Itching apply to bilateral legs Insulin Isophan/Regular (Novolin 70/30) Susp 60 UNITS SC QPM, BTL Insulin Isophan/Regular (Novolin 70/30) Susp 50 UNITS SC QAM, BTL Lactobacillus Acidophilus (Lactinex Granules) 1 Gm Pkt 1 GM PO TIDM Lidocaine (Lidoderm Patch 5%) 1 Ea Tdsy 1 PATCH TD DAILY Lorazepam (Ativan) 1 Mg Tab 1 MG PO q12 hours, TAB Nitroglycerin (Nitrostat) 0.4 Mg Sub 0.4 MG UT UD PRN for Chest Pain PLACE ONE TABLET UNDER THE TONGUE EVERY 5 MINUTES FOR UP TO 3 DOSES IF NEEDED FOR CHEST PAIN. Oxycodone Hcl (Oxycontin) 20 Mg Tab 20 MG PO Q12, TAB Oxycodone Ir (Roxicodone Ir) 5 Mg Tab 5 MG PO Q6H PRN for Pain, TAB Oxygen (Oxygen) Gas 2 LITERS NA continuous Pantoprazole (Protonix) 40 Mg Tab 40 MG PO DAILY, #30 TAB Potassium Chloride (Potassium Chloride Er) 10 Meq Tab 20 MEQ PO TIDM Spironolactone (Aldactone) 50 Mg Tab 50 MG PO DAILY, TAB Admission Information HPI (per Admitting provider): Patient seen and examined. 66 year old female with PMHx of IDDM, COPD, MEJÍA cirrhosis, GAVE, frequent GI bleeds, systolic CHF and other problems listed below is seen in as a direct admission for worsening cellulitis, and left toe ulcer. Patient has been following with Dr. Musa at the wound clinic and Dr. Brenden MAYO. Patient reports she has had a left toe diabetic ulcer for about six months over the last few weeks she has developed cellulitis in the last few weeks. She has been treated with clindamycin as an outpatient but felt like she wasn't getting better. She states she has chills and feels unwell. She followed up with wound care today and they recommended direct admission for IV antibiotics. Patient also believes she has a UTI as she reports occasional "leakage." She denies fevers, URI symptoms, chest pain, SOB, nausea, vomiting, diarrhea, dysuria. Admission labs are pending she will be admitted for further workup and treatment. Physical Exam (per Admitting): General Appearance: + pertinent finding (Pleasant WD/WN 66 year old female lying in bed in NAD ) Head: normocephalic, atraumatic Eyes: PERRL, EOMI, sclerae normal ENT: hearing grossly normal, pharynx normal Neck: supple, no JVD Respiratory/Chest: chest non-tender, lungs clear, normal breath sounds, no respiratory distress, no accessory muscle use Cardiovascular: regular rate, rhythm, no gallop, no JVD, no murmur, normal peripheral pulses Abdomen/GI: normal bowel sounds, non tender, soft Back: normal inspection, no muscle spasm Extremities/Musculoskelatal: normal capillary refill, + calf tenderness, + pertinent finding (chronic lymphedema changes, erythema to BLLE with some skin tears, left great toe ulcer with surrounding erythema ) Neurologic/Psych: no motor/sensory deficits, alert, oriented x 3 Skin: normal color, warm/dry, no rash Lymphatic: no adenopathy Hospital Course MRI left toes LOWER EXT NON JOINT COMBO CLINICAL HISTORY: L big toe swelling ro osteomyelitis osteomyelitis TECHNIQUE: MRI multi axial acquisition COMPARISON STUDY: None FINDINGS: Limited study technically due to considerable patient motion. Findings consistent with bone marrow replacement base of the distal phalanx great toe. Soft tissue edema is present. Increased signal on inversion recovery sequences study is positive for postcontrast enhancement. No evidence for abscess or collection. Degenerative change of the metatarsophalangeal joint. IMPRESSION: 1. Osteomyelitis base distal phalanx great toe.. 2. Surrounding cellulitis. 3. Moderate degenerative change of the remaining visualized osseous structures 66 year old female presents as a direct admission from wound care for worsening cellulitis B/L Lower Extremities Cellulitis: Has Left Great Toe ulceration. Is afebrile and has no Leukocytosis. Last wound cultures grew E. faecalis -Blood cultures, wound cultures pending -Venous Doppler US rules out DVT. -Continue Daptomycin (day # 5) & Ertapenem (Day # 3)per ID recommendation, pharmacy consulted for dosing Will discuss with ID about MRI findings -Infectious disease consult reviewed. -Wound care physician and nurse consults placed -Continue outpatient pain regimen. Demanding higher doses of Narcotics although does not seem to be in acute pain. -Ordered PICC line placement. Consent obtained. History Diabetes: Stable. HbA1c is 6.0. -SSI coverage -Pharmacy consulted for glycemic control History COPD/ Chronic Respiratory Failure: Stable. As per patient, she uses her oxygen only as needed. -Continue home inhalers Mejía Cirrhosis: Will follow LFTs Morbid Obesity: (BMI >50). Counselled patient. H/O Multiple GI Bleeds/GAVE: Avoid anticoagulation/antiplatelets -Continue iron supplement -Hgb stable, monitor daily History GERD: Stable. Continue Protonix Chronic Systolic CHF: Stable. -Continue Lasix -Continue B-Annika DVT Prophylaxis: Sq heparin Code Status: FULL CODE Disposition: Discharge once final culture results are available and have a plan for antibiotics as well PICC gets placed. Will be going to a facility to complete course of antibiotics. Total time spent on discharge = 45 minutes. This includes examination of the patient, discharge planning, medication reconciliation, and communication with other providers. Discharge Instructions Discharge Goals Goal(s): Decrease discomfort, Improve function, Increase independence, Improve disease control, Improve nutritional status, Learn about illness, Diagnostic testing, Therapeutic intervention Activity Recommendations Activity Limitations: per Instructions/Follow-up section Lifting Limitations: gradually increase as tolerated Exercise/Sports Limitations: gradually increase as tolerated Shower/Bathe: no limitations (With assistance) . Instructions / Follow-Up Instructions / Follow-Up Follow up with Infectious Disease and Wound Care Clinic as per their recommendations. Current Hospital Diet Patient's current hospital diet: AHA Diet (Heart Healthy), Diabetes Type 2 Diet Discharge Diet Recommended Diet: AHA Diet (Heart Healthy), Diabetes Type 2 Diet Additional Copies To Dennis Decker M.D., Jennifer., D.O.
== END 2016-10-15 16:15 | DRG 571 ==
LOC: C.MS2W 16:10
PROVIDERS: ADMIT Internal Medicine; ATTEND Emergency Medicine
PROC: 0JBR0ZZ Excision of Left Foot Subcutaneous Tissue and Fascia, Open Approach (ICD-10-PCS; principal; 2016-10-11)
DX: L03.116 Cellulitis of left lower limb (principal); I50.22 Chronic systolic (congestive) heart failure; K76.6 Portal hypertension; J96.10 Chronic respiratory failure, unspecified whether with hypoxia or hypercapnia; Z68.43 Body mass index [BMI] 50.0-59.9, adult; E11.621 Type 2 diabetes mellitus with foot ulcer; K21.9 Gastro-esophageal reflux disease without esophagitis; Z86.010 Personal history of colon polyps; Z87.19 Personal history of other diseases of the digestive system; K75.81 Nonalcoholic steatohepatitis (NASH); R91.8 Other nonspecific abnormal finding of lung field; J44.9 Chronic obstructive pulmonary disease, unspecified; Z90.710 Acquired absence of both cervix and uterus; Z80.9 Family history of malignant neoplasm, unspecified; Z82.49 Family history of ischemic heart disease and other diseases of the circulatory system; Z83.3 Family history of diabetes mellitus; Z80.8 Family history of malignant neoplasm of other organs or systems; Z87.891 Personal history of nicotine dependence; Z91.041 Radiographic dye allergy status; L97.529 Non-pressure chronic ulcer of other part of left foot with unspecified severity; Z88.2 Allergy status to sulfonamides; Z88.0 Allergy status to penicillin; Z88.8 Allergy status to other drugs, medicaments and biological substances; Z79.4 Long term (current) use of insulin; Z79.899 Other long term (current) drug therapy; Z99.81 Dependence on supplemental oxygen; B96.4 Proteus (mirabilis) (morganii) as the cause of diseases classified elsewhere; E66.01 Morbid (severe) obesity due to excess calories; K31.819 Angiodysplasia of stomach and duodenum without bleeding; L97.919 Non-pressure chronic ulcer of unspecified part of right lower leg with unspecified severity; L84 Corns and callosities

== ENCOUNTER 2017-09-06 15:42 | Emergency (ER) | payer OTHER ==
[~2017-09-06] VITALS: Ht 154.9 cm; Wt 112.2 kg
[~2017-09-06 15:42] MED LIST changes: -CLC/300 PO; +NF656 TD
[2017-09-06 15:58] VITALS: Ht 154.9 cm; Wt 112.2 kg
--- NOTE | 2017-09-06 16:19 | EMERGENCY ROOM VISIT NOTE ---
History Report prepared by Jareth: Lonnie Gresham Under the Supervision of: Dr. Cody Navarrete M.D. First contact with patient: 16:05 Chief Complaint: SEIZURE Stated Complaint: SEIZURE Nursing Triage Summary: pt tearful in room. 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 states seizure lasted 2-3 min per family. pt a/o x3. stated name, , and location,but unable to say why she was here. per ems pt w/ diabetes and cardiace history. aditionally states pt w/ respiratory problems and on 3 liters O2 @ home although pt denies O2 use at home. History of Present Illness The patient is a 67 year old white female with a past medical history of CHF, diabetes, GERD, COPD, cirrhosis, hepatic lesion, HTN, and one previous seizure who presents to the ED via EMS with a seizure episode that occurred earlier this afternoon. Positive shaking, lack of responsiveness. Per the patient's family, they are all in the process of moving back to [place], and there has been a lot of stress and lack of sleep recently. The patient was noted to have a seizure episode that lasted about 2 to 3 minutes, with shaking lasting for about 20 minutes. The patient was not responsive for a while, but is now responsive again. The patient states that she does not know what happened. Per the patient's family, the patient's hands were clenched, and her legs were shaking. The patient's blood sugar was 160 at the scene. The patient had been on oxygen at home in the past, but for the past month or so, the patient has felt like her lungs have improved so she stopped using the oxygen. She denies any medication changes or changes in her insulin dosage. The patient had an oxygen saturation of 95% upon arrival here. Source of History: patient, family, EMS Onset: Earlier this afternoon Position: other (global) Symptom Intensity: with shaking Quality: other (seizure) Timing: other (episode) Note: Associated symptoms: Lack of responsiveness for a while during episode. Legs were shaking. Review of Systems See HPI for pertinent positives and negatives. A total of ten systems were reviewed and were otherwise negative. Past Medical & Surgical Medical Problems: (1) Anemia (2) Cellulitis (3) Cirrhosis of liver (4) COPD (chronic obstructive pulmonary disease) (5) Diabetes mellitus, type II (6) GERD (gastroesophageal reflux disease) (7) GI bleed (8) Hepatic lesion (9) History of adenomatous polyp of colon (10) HTN (hypertension) (11) Portal hypertension (12) Pulmonary nodules (13) SOB (shortness of breath) (14) Toe ulcer Surgical Problems: (1) Status post hysterectomy (2) Status post tonsillectomy Family History Cancer FATHER Diabetes mellitus FATHER Heart disease FATHER Pancreatic cancer GRANDMOTHER Social History Smoking Status: Former Smoker Alcohol Use: none Drug Use: none Marital Status: Housing Status: lives alone Occupation Status: disabled Current/Historical Medications Scheduled Amitriptyline Hcl (Elavil), 50 MG PO HS Carvedilol (Coreg), 3.125 MG PO BIDM Ferrous Sulfate (Ferrous Sulfate), 325 MG PO DAILY Furosemide (Lasix), 40 MG PO DAILY Home O2 Therapy (Oxygen), 2 LITERS NA continuous Insulin Isophan/Regular (Novolin 70/30), 60 UNITS SC QPM Insulin Isophan/Regular (Novolin 70/30), 50 UNITS SC QAM Lactobacillus Acidophilus (Lactinex Granules), 1 GM PO TIDM Levetiracetam (Keppra), 250 MG PO BID Lidocaine (Lidoderm Patch 5%), 1 PATCH TD DAILY Lorazepam (Ativan), 1 MG PO q12 hours Oxycodone Hcl (Oxycontin), 20 MG PO Q12 Pantoprazole (Protonix), 40 MG PO DAILY Potassium Chloride (Potassium Chloride Er), 20 MEQ PO TIDM Spironolactone (Aldactone), 50 MG PO DAILY Scheduled PRN Albuterol Sulf (Albuterol Sulfate), 1 VIAL NEB QID PRN for SOB/Wheezing Albuterol Sulfate (Proair Respiclick), 2 PUFFS INH QID PRN for wheezing Hydrocortisone 1% (Hydrocortisone 1%), 1 APPLN TOP BID PRN for Itching Nitroglycerin (Nitrostat), 0.4 MG UT UD PRN for Chest Pain Oxycodone Ir (Roxicodone Ir), 5 MG PO Q6H PRN for Pain Allergies Coded Allergies: Cephalexin (Verified Allergy, Intermediate, HIVES, 08/20/16) Iodinated Diagnostic Agents (Verified Allergy, Intermediate, RASH, 08/20/16 ) Penicillins (Verified Allergy, Intermediate, HIVES, 08/20/16) Sulfa Antibiotics (Verified Allergy, Unknown, UNKNOWN, 08/20/16) Physical Exam Vital Signs Date Time Temp Pulse Resp B/P (MAP) Pulse Ox O2 Delivery O2 Flow Rate FiO2 09/06/17 20:25 92 18 182/96 95 Room Air 09/06/17 19:39 37.3 92 18 176/100 94 Room Air 09/06/17 17:31 80 14 160/85 95 Room Air 09/06/17 16:46 95 Room Air 09/06/17 16:46 95 Room Air 09/06/17 16:24 89 09/06/17 15:58 37.0 93 18 165/81 95 Room Air Physical Exam GENERAL: Awake, alert, tearful, sad, NAD HENT: Normocephalic, atraumatic. EYES: Normal conjunctiva. Sclera non-icteric. NECK: Supple. No nuchal rigidity. FROM. RESPIRATORY: CTAB, no rhonchi, wheezing, crackles CARDIAC: RRR, no MRG ABDOMEN: Soft, NTND, BS+ MSK: No chest wall TTP, no LE edema NEURO: CN 2-12 intact, 5/5 upper extremity strength, no dysmetria, no drift, good finger to nose, no sensory deficits. Some decreased strength in bilateral lower extremities secondary to lymphedema. SKIN: Chronic venous stasis changes in bilateral lower extremities. Medical Decision & Procedures ER Provider Diagnostic Interpretation: Radiology results as stated below per my review and radiologist interpretation: CT OF THE HEAD WITHOUT CONTRAST CLINICAL HISTORY: Seizure. COMPARISON STUDY: No previous studies for comparison. CT DOSE: 1277.12 mGycm TECHNIQUE: Helical axial images of the head were obtained without IV contrast. Automated exposure control was utilized for the study. A dose lowering technique was utilized adhering to the principles of ALARA. FINDINGS: Exam is mildly compromised by motion artifact. No acute intracranial hemorrhage, midline shift or mass effect is present. Ventricular system is normal. Basilar cisterns are patent. There are no extra-axial collections. There are no findings to suggest acute dural sinus thrombosis or acute territorial infarct. There are no calvarial abnormalities. Visualized portions of the sinuses and mastoid air cells are clear. There is a right frontal osteoma. IMPRESSION: No acute intracranial findings. Electronically signed by: José Miguel Hood M.D. 09/06/2017 5:07 PM Dictated Date/Time: 09/06/2017 5:03 PM CHEST ONE VIEW PORTABLE CLINICAL HISTORY: SEIZURE COMPARISON STUDY: Chest radiograph August 20, 2016. FINDINGS: There is no pneumothorax or pleural effusion. Interstitial thickening has slightly improved since exam of August 20, 2016. Left basilar opacity suggest atelectasis. Moderate cardiomegaly is unchanged. Mediastinal contours are stable. IMPRESSION: Mild pulmonary edema. Electronically signed by: José Miguel Hood M.D. 09/06/2017 5:09 PM Dictated Date/Time: 09/06/2017 5:08 PM Laboratory Results 09/06/17 16:42 Red Blood Count 4.34, Mean Corpuscular Volume 88.9, Mean Corpuscular Hemoglobin 31.3, Mean Corpuscular Hemoglobin Concent 35.2, Mean Platelet Volume 8.9, Neutrophils (%) (Auto) 74.1, Lymphocytes (%) (Auto) 14.2, Monocytes (%) (Auto) 7.6, Eosinophils (%) (Auto) 3.4, Basophils (%) (Auto) 0.4, Neutrophils # (Auto) 5.38, Lymphocytes # (Auto) 1.03, Monocytes # (Auto) 0.55, Eosinophils # (Auto) 0.25, Basophils # (Auto) 0.03 09/06/17 16:42 Test 09/06/17 16:42 09/06/17 17:11 09/06/17 17:52 White Blood Count 7.26 K/uL (4.8-10.8) Red Blood Count 4.34 M/uL (4.2-5.4) Hemoglobin 13.6 g/dL (12.0-16.0) Hematocrit 38.6 % (37-47) Mean Corpuscular Volume 88.9 fL (80-100) Mean Corpuscular Hemoglobin 31.3 pg (25-34) Mean Corpuscular Hemoglobin Concent 35.2 g/dl (32-36) Platelet Count 164 K/uL (130-400) Mean Platelet Volume 8.9 fL (7.4-10.4) Neutrophils (%) (Auto) 74.1 % Lymphocytes (%) (Auto) 14.2 % Monocytes (%) (Auto) 7.6 % Eosinophils (%) (Auto) 3.4 % Basophils (%) (Auto) 0.4 % Neutrophils # (Auto) 5.38 K/uL (1.4-6.5) Lymphocytes # (Auto) 1.03 K/uL (1.2-3.4) Monocytes # (Auto) 0.55 K/uL (0.11-0.59) Eosinophils # (Auto) 0.25 K/uL (0-0.5) Basophils # (Auto) 0.03 K/uL (0-0.2) RDW Standard Deviation 42.7 fL (36.4-46.3) RDW Coefficient of Variation 13.2 % (11.5-14.5) Immature Granulocyte % (Auto) 0.3 % Immature Granulocyte # (Auto) 0.02 K/uL (0.00-0.02) Anion Gap 8.0 mmol/L (3-11) Est Creatinine Clear Calc Drug Dose 67.2 ml/min Estimated GFR () 73.2 Estimated GFR (Non- 63.1 BUN/Creatinine Ratio 9.4 (10-20) Calcium Level 9.1 mg/dl (8.5-10.1) Phosphorus Level 3.0 mg/dl (2.5-4.9) Magnesium Level 1.8 mg/dl (1.8-2.4) Thyroid Stimulating Hormone (TSH) 2.980 uIu/ml (0.300-4.500) Prothrombin Time 11.5 SECONDS (9.0-12.0) Prothromb Time International Ratio 1.1 (0.9-1.1) Activated Partial Thromboplast Time 27.6 SECONDS (21.0-31.0) Partial Thromboplastin Ratio 1.1 Ethyl Alcohol mg/dL < 3.0 mg/dl (0-3) Urine Color YELLOW Urine Appearance CLEAR (CLEAR) Urine pH 8.5 (4.5-7.5) Urine Specific Frost 1.007 (1.000-1.030) Urine Protein 1+ (NEG) Urine Glucose (UA) NEG (NEG) Urine Ketones NEG (NEG) Urine Occult Blood TRACE (NEG) Urine Nitrite NEG (NEG) Urine Bilirubin NEG (NEG) Urine Urobilinogen NEG (NEG) Urine Leukocyte Esterase NEG (NEG) Urine WBC (Auto) 1-5 /hpf (0-5) Urine RBC (Auto) 10-30 /hpf (0-4) Urine Hyaline Casts (Auto) 1-5 /lpf (0-5) Urine Epithelial Cells (Auto) >30 /lpf (0-5) Urine Bacteria (Auto) NEG (NEG) Laboratory results reviewed by me Medications Administered Medications (Trade) Dose Ordered Sig/Sena Route Start Time Stop Time Status Last Admin Dose Admin Lorazepam (Ativan Tab) 1 mg STK-MED ONCE .ROUTE 09/06/17 17:01 09/06/17 17:02 DC 09/06/17 17:01 1 MG Levetiracetam (Keppra Tab) 500 mg ONE STAT PO 09/06/17 17:48 09/06/17 17:49 DC 09/06/17 18:00 500 MG ECG Per My Interpretation Indication: other (seizure) Rate (beats per minute): 84 Rhythm: sinus rhythm Findings: 1st degree AV block, no ectopy, other (normal axis) ED Course 0: The patient was evaluated in room C12B. A complete history and physical exam was performed. 1746: I discussed the patient with Dr. Hao Moon neurology - he says to do Keppra load 500 mg, 250 mg BID. 175: The psych adult protective caseworker will see the patient. 1755: I reevaluated the patient and updated her and her family. 1933: I reevaluated the patient and she is resting. Discussed results and discharge instructions: the patient and her family verbalized understanding and agreement. The patient is ready for discharge. Medical Decision The patient is a 67 year old white female with a past medical history of CHF, diabetes, GERD, COPD, cirrhosis, hepatic lesion, HTN, and one previous seizure who presents to the ED via EMS with a seizure episode that occurred earlier this afternoon. Positive shaking, lack of responsiveness. Differential diagnosis: Etiologies such as infection, hypoglycemia, electrolyte abnormalities, cardiac sources, intracerebral event, trauma, toxicologic, neurologic, as well as others were entertained. Patient was seen and evaluated bedside. Patient apparently had a reported seizure-like episode prior to arrival. This apparently lasted approximately 2- 3 minutes. Patient came to thereafter. Patient has normal blood sugar on scene. Patient had been concerned as is her family had been yelling at her. The patient has had some decreased sleep as well as some stress with regard to a move. Patient has a normal neurologic exam. Patient did have blood work, EKG , troponin, urinalysis, and CT of the brain. Patient denies any alcohol, tobacco, or drug use. Patient's blood work was fairly unremarkable. Patient did have mildly elevated blood glucose. Anion gap is normal. CT of the brain negative. EKG unremarkable. Troponin negative. Patient ethanol level negative. I discussed the patient with the on-call neurologist who recommended a Keppra load and starting Keppra 250 mg twice daily. Patient is in the midst of a move. We advised that the patient obtain PCP follow-up along with an MRI and EEG as an outpatient. I discussed the patient with the psych lead case manager the patient did state that she did not want to live anymore I believe this was said out of exasperation given her recent altercation with her family and the increased stress and burden of the move. Seen by psych CM and stable for outpatient f.u/ and trx. Explained f/u required for patient once she settles at new residence. No recurrent seizures here. Deemed suitable for outpatient f/u and trx at this time. D/c'ed to home in care of family. Medication Reconcilliation Current Medication List: was personally reviewed by me Blood Pressure Screening Patient's blood pressure: Elevated blood pressure Blood pressure disposition: Referred to PCP Consults Time Called: 1743 Consulting Physician: Dr. Hao Moon neurology Returned Call: 1746 I discussed the patient with Dr. Hao Moon neurology - he says to do Keppra load 500 mg, 250 mg BID. Impression Primary Impression: Seizure Scribe Attestation The scribe's documentation has been prepared under my direction and personally reviewed by me in its entirety. I confirm that the note above accurately reflects all work, treatment, procedures, and medical decision making performed by me. Departure Information Dispostion Home / Self-Care Prescriptions Levetiracetam (Keppra) 250 Mg Tab 250 MG PO BID for 30 Days, #60 TAB Prov: Cody Navarrete M.D. 09/06/17 Referrals Dennis Decker M.D. (PCP) Patient Instructions Epilepsy Seizures, My [facility] Additional Instructions Please return to the emergency department if you have worsening or recurrent symptoms not amenable to at-home treatment. Please call for a follow-up appointment with her primary care physician. Please take your medications as prescribed. If you have other concerns and/or complaints please feel free to also call your primary care physician's office or return the ED for further evaluation, management, and treatment. When you move to [place] please follow-up with your primary care physician. Discuss obtaining a brain MRI as well as an EEG given this is your second seizure. Please continue to take your anti-seizure medication as prescribed which will be twice per day. Take your medications as prescribed. You have been examined and treated today on an emergency basis only. This is not a substitute for, or an effort to provide, complete comprehensive medical care. It is impossible to recognize and treat all injuries or illnesses in a single emergency department visit. It is therefore important that you follow up closely with [facility], your PCP, and/or your specialist(s). Call as soon as possible for an appointment. Thank you for your time and consideration. I look forward to speaking with you again soon. Please don't hesitate to call us if you have any questions.
[2017-09-06 16:46] VITALS: O2SAT 95
[2017-09-06 16:54] LABS: BASO % 0.4 %; BASO ABS # 0.03 K/uL (0-0.2); EOS % 3.4 %; EOS ABS # 0.25 K/uL (0-0.5); HEMATOCRIT 38.6 % (37-47); HEMOGLOBIN 13.6 g/dL (12.0-16.0); IG# 0.02 K/uL (0.00-0.02); LYMPH % 14.2 %; LYMPH ABS # 1.03 K/uL (1.2-3.4); MEAN CELL VOLUME 88.9 fL (80-100); MEAN CORPUSCULAR HEMOGLOBIN 31.3 pg (25-34); MEAN CORPUSCULAR HGB CONC 35.2 g/dl (32-36); MEAN PLATELET VOLUME 8.9 fL (7.4-10.4); MONO % 7.6 %; MONO ABS # 0.55 K/uL (0.11-0.59); NEUT % 74.1 %; NEUT ABS # 5.38 K/uL (1.4-6.5); PLATELET COUNT 164 K/uL (130-400); RED CELL DISTRIBUTION WIDTH CV 13.2 % (11.5-14.5); RED CELL DISTRIBUTION WIDTH SD 42.7 fL (36.4-46.3); WHITE BLOOD COUNT 7.26 K/uL (4.8-10.8)
[2017-09-06] MEDS ORDERED: LORAZEPAM 1 MG TAB PO STA (17:01)
[2017-09-06] MEDS ORDERED: LORAZEPAM 1 MG TAB ONE (17:01)
--- NOTE | 2017-09-06 17:09 | DIAGNOSTIC IMAGING REPORT ---
CT OF THE HEAD WITHOUT CONTRAST CLINICAL HISTORY: Seizure. COMPARISON STUDY: No previous studies for comparison. CT DOSE: 1277.12 mGycm TECHNIQUE: Helical axial images of the head were obtained without IV contrast. Automated exposure control was utilized for the study. A dose lowering technique was utilized adhering to the principles of ALARA. FINDINGS: Exam is mildly compromised by motion artifact. No acute intracranial hemorrhage, midline shift or mass effect is present. Ventricular system is normal. Basilar cisterns are patent. There are no extra-axial collections. There are no findings to suggest acute dural sinus thrombosis or acute territorial infarct. There are no calvarial abnormalities. Visualized portions of the sinuses and mastoid air cells are clear. There is a right frontal osteoma. IMPRESSION: No acute intracranial findings. Electronically signed by: José Miguel Hood M.D. 09/06/2017 5:07 PM Dictated Date/Time: 09/06/2017 5:03 PM
--- NOTE | 2017-09-06 17:11 | DIAGNOSTIC IMAGING REPORT ---
CHEST ONE VIEW PORTABLE CLINICAL HISTORY: SEIZURE COMPARISON STUDY: Chest radiograph August 20, 2016. FINDINGS: There is no pneumothorax or pleural effusion. Interstitial thickening has slightly improved since exam of August 20, 2016. Left basilar opacity suggest atelectasis. Moderate cardiomegaly is unchanged. Mediastinal contours are stable. IMPRESSION: Mild pulmonary edema. Electronically signed by: José Miguel Hood M.D. 09/06/2017 5:09 PM Dictated Date/Time: 09/06/2017 5:08 PM
[2017-09-06 17:13] LABS: CALCIUM 9.1 mg/dl (8.5-10.1); CREATININE 0.93 mg/dl (0.60-1.20); POTASSIUM 3.5 mmol/L (3.5-5.1)
[2017-09-06 17:33] LABS: INR 1.1 (0.9-1.1); PTT PATIENT 27.6 SECONDS (21.0-31.0)
[2017-09-06] MEDS ORDERED: LEVETIRACETAM 500 MG TAB PO STA (17:48)
[2017-09-06 19:39] VITALS: TEMP 37.3
[2017-09-06] MEDS ORDERED: LEVE250T PO (19:43)
[2017-09-06 20:25] VITALS: BP 182/96; PULSE 92; O2SAT 95
== END 2017-09-06 20:32 | disposition home or self-care (01) ==
LOC: EDBD 15:42 → C.EDC 15:44
DX: R56.9 Unspecified convulsions (principal); E11.9 Type 2 diabetes mellitus without complications; I50.9 Heart failure, unspecified; J44.9 Chronic obstructive pulmonary disease, unspecified; I11.0 Hypertensive heart disease with heart failure; K21.9 Gastro-esophageal reflux disease without esophagitis; Z79.4 Long term (current) use of insulin; Z79.891 Long term (current) use of opiate analgesic; Z88.0 Allergy status to penicillin; Z88.1 Allergy status to other antibiotic agents; Z88.2 Allergy status to sulfonamides; Z91.041 Radiographic dye allergy status; Z83.3 Family history of diabetes mellitus; Z82.49 Family history of ischemic heart disease and other diseases of the circulatory system; Z80.0 Family history of malignant neoplasm of digestive organs